=== PATIENT | female | born 1990 | race Caucasian/White ===

== ENCOUNTER → 2017-09-03 13:22 | Outpatient (CLI) | payer OTHER, SELFPAY ==
--- NOTE | 2017-09-03 13:31 | RAD_ITS ---
STUDY: HYSTEROSALPINGOGRAM. REASON FOR EXAM: Female, 27 years old. Infertility. FLUOROSCOPY TIME (if supplied): (0:15) minutes/seconds TECHNIQUE: A hysterosalpingogram was performed by the spooler operator automatic. Imaging was provided. COMPARISON: None. FINDINGS: The uterus is unremarkable. Both fallopian tubes are patent and there is free flow. RAD/Salpingogram IMPRESSION: Normal hysterosalpingogram. Electronically Signed: Jerad Garcia MD at 15:43 EDT Tel [phone], Service support ,
== END ==
PROVIDERS: Family Provider Family Medicine; PCP Family Medicine; Visit Provider Obstetrics & Gynecology
DX: Q52.4 Other congenital malformations of vagina (principal); Q51.818 Other congenital malformations of uterus
CPT/HCPCS: 58340; 74740

== ENCOUNTER → 2017-10-08 17:33 | Outpatient (CLI) | payer OTHER, SELFPAY ==
[2017-10-08 18:29] LABS: Follicle Stimulating Hormone 3.5 mIU/mL; Prolactin 31.9 ng/mL
[2017-10-09 08:44] LABS: Progesterone Level 0.24 ng/mL (See Comment)
[2017-10-12 15:30] LABS: DHEA Sulfate 92.7 ug/dL (84.8-378.0)
[2017-10-16 12:08] LABS: 17-Hydroxyprogesterone 35 ng/dL (.)
== END ==
PROVIDERS: Family Provider Family Medicine; PCP Family Medicine; Visit Provider Obstetrics & Gynecology
DX: N91.1 Secondary amenorrhea (principal)
CPT/HCPCS: 36415; 82627; 83001; 83498; 84144; 84146; 84402; 82626

== ENCOUNTER → 2017-10-13 07:49 | Outpatient (CLI) | payer OTHER, SELFPAY ==
[2017-10-13 08:53] LABS: Prolactin 5.7 ng/mL
== END ==
PROVIDERS: Family Provider Family Medicine; PCP Family Medicine; Visit Provider Obstetrics & Gynecology
DX: E22.9 Hyperfunction of pituitary gland, unspecified (principal)
CPT/HCPCS: 36415; 84146

== ENCOUNTER → 2017-10-26 07:46 | Outpatient (CLI) | payer OTHER, SELFPAY ==
[2017-10-26 10:06] LABS: Progesterone Level 0.47 ng/mL (See Comment)
== END ==
PROVIDERS: Family Provider Family Medicine; PCP Family Medicine; Visit Provider Obstetrics & Gynecology
DX: N91.1 Secondary amenorrhea (principal)
CPT/HCPCS: 36415; 84144

== ENCOUNTER → 2017-12-21 11:19 | Outpatient (CLI) | payer OTHER, SELFPAY ==
[2017-12-21 12:15] LABS: Absolute Lymphocyte Count 1.79 X10^3/ul (0.83-4.51); Basophil# 0.03 X10^3/uL; Basophil% 0.4 % (0-1); Eosinophil# 0.07 X10^3/uL; Eosinophils% 0.9 % (0-5); Hematocrit 36.8 % (37-47); Hemoglobin 12.5 g/dl (12.0-15.0); Lymphocyte # 1.79 X10^3/ul (4.0); Lymphocyte % 23.3 % (19-41); Mean Corpuscular Hgb 31.7 pg (27.0-32.0); Mean Corpuscular Volume 93.4 fL (81-99); Mean Platelet Vol. 9.9 fl (6.2-12.0); Monocyte# 0.81 X10^3/uL; Monocyte% 10.5 % (0-10); Neutrophil # 4.98 X10^3/uL (2.7-7.7); Neutrophil % 64.8 % (47-70); Platelet Count 279 K/mm3 (150-450); RBC Distribution Width CV 12.8 % (11.6-14.6); RBC Distribution Width SD 42.8 fl (35.1-43.9); Red Blood Count 3.94 M/mm3 (4.2-5.4); White Blood Count 7.7 K/mm3 (4.4-11.0)
[2017-12-21 12:21] LABS: POSITIVE COUNT NO; POSITIVE DIFFERENTIAL NO; POSITIVE MORPHOLOGY NO
[2017-12-21 13:32] LABS: HIV - WCH Non-Reactive (Nonreactive); Rubella IgG 46.3 IU/mL
[2017-12-21 19:28] LABS: Chlamydia Trachomatis by PCR Negative (Negative); Neisserai gonorrhoeae by PCR Negative (Negative); Probe Check PASS; Sample Adequacy Control PASS; Specimen Processing Control PASS
[2017-12-23 11:48] LABS: HEPATITIS B SURFACE AG Negative (Negative)
[2017-12-25 02:29] LABS: Rapid Plasmin Reagin (RPR) NONREACTIVE (NONREACTIVE)
[2017-12-25 09:06] LABS: HPV Reflexed? NOT INDICATED
== END ==
PROVIDERS: Visit Provider Obstetrics & Gynecology
DX: Z34.90 Encounter for supervision of normal pregnancy, unspecified, unspecified trimester (principal); Z12.4 Encounter for screening for malignant neoplasm of cervix
CPT/HCPCS: 85025; 86592; 86703; 86762; 86850; 86900; 87086; 87088; 87340; 87491; 87591; 88175; G0145

== ENCOUNTER → 2018-01-28 09:45 | Outpatient (CLI) | payer OTHER, SELFPAY | PROVIDERS: Family Provider Family Medicine; PCP Family Medicine | DX: Z36.9 Encounter for antenatal screening, unspecified (principal) | CPT/HCPCS: 36415 ==

== ENCOUNTER → 2018-02-19 12:28 | Outpatient (CLI) | payer OTHER, SELFPAY | PROVIDERS: Family Provider Family Medicine; PCP Family Medicine | DX: Z36.9 Encounter for antenatal screening, unspecified (principal) | CPT/HCPCS: 36415 ==

== ENCOUNTER → 2018-03-29 12:17 | Outpatient (CLI) | payer OTHER, SELFPAY ==
[2018-03-15 11:28] VITALS: BMI 23.1
--- NOTE | 2018-03-29 12:19 | US_ITS ---
STUDY: SECOND AND THIRD TRIMESTER OBSTETRICAL ULTRASOUND REASON FOR EXAM: Female, 28 years old. Routine survey. LMP: October 26, 2017. TECHNIQUE: Transabdominal TECHNICAL QUALITY: Adequate. PRIOR ULTRASOUND: None. FINDINGS: There is a single intrauterine fetus. The fetus is in a cephalic presentation. There is demonstrated cardiac activity with a heart rate of 139 bpm. There is a normal amniotic fluid volume. The largest amniotic fluid pocket measures 4.3 cm x 9.2 cm. The amniotic fluid index (WILLY) is within normal limits. The placenta is anterior in location and is not low lying. There are Grade 0 placental changes. The cervix measures 4.3 cm in length. The bilateral adnexal regions are normal. BIOMETRY: BPD: 5.78 cm: 23 weeks, 5 days HC: 20.68 cm: 20 weeks, 6 days AC: 17.29 cm: 22 weeks, 2 days FL: 4.08 cm: 23 weeks, 2 days CI: 83% FL/BPD: 71% FL/HC: FL/AC: 24% HC/AC: 1.2 age by current US: 23 weeks, 1 days. BELLA by current US: July 25, 2018. Estimated weight: 529 grams, +/- 76 grams, 80 %. Age by LMP: 22 weeks, 0 days. BELLA by LMP: August 02, 2018. ANATOMY: Gender: Indeterminant Cranium: Normal lateral ventricles. Normal choroid plexus. Normal cerebellum. Normal cisterna magna. Normal face, nose and lips. Chest: Normal 4-chamber heart. Abdomen/Pelvis: Normal diaphragm. Normal stomach. Normal abdominal wall. Normal cord insertion. Normal 3 vessel cord. Normal kidneys. Normal bladder. Spine: Normal cervical spine. Normal thoracic spine. Normal lumbar spine. Normal sacrum. Extremities: Normal bilateral upper extremities. Normal bilateral lower extremities. US/OB Anatomy Scan IMPRESSION: Single live intrauterine gestation with a mean gestational age of 23 weeks and 1 day. Electronically Signed: Jerad Garcia MD at 11:24 EST Tel [phone], Service support ,
--- OUTSIDE RECORDS SUMMARY | 2018-07-01 02:34 | XMS RPT_ITS ---
:1990 Author Organization OHIP Support Name Relationship Address Phone CERAN Unavailable [address] + [place] [address] IVONE, NOEL Unavailable [address] + [place] [address] CERAN Unavailable [address] + [place] [address] IVONE, NOEL Unavailable [address] + [place] [address] CERAN Unavailable [address] + [place] [address] IVONE, NOEL Unavailable [address] + [place] [address] CERAN Unavailable [address] + [place] [address] IVONE, NOEL Unavailable [address] + [place] [address] CERAN Unavailable [address] + [place] [address] IVONE, NOEL Unavailable [address] + [place] [address] CERAN Unavailable [address] + [place] [address] IVONE, NOEL Unavailable [address] + [place] [address] IVONE, NOEL Unavailable [address] + [place] [address] IVONE, NOEL Unavailable [address] + [place] [address] CERAN Unavailable [address] + [place] [address] IVONE, NOEL Unavailable [address] + [place] [address] CERAN Unavailable [address] + [place] [address] IVONE, NOEL Unavailable [address] + [place] [address] CERAN Unavailable [address] + [place] [address] IVONE, NOEL Unavailable [address] + [place] [address] CERAN Unavailable [address] + [place] [address] IVONE, NOEL Unavailable [address] + [place] [address] CERAN Unavailable [address] + [place] [address] IVONE, NOEL Unavailable [address] + [place] [address] CERAN Unavailable [address] + [place] [address] IVONE, NOEL Unavailable [address] + [place] [address] CERAN Unavailable [address] + [place] [address] IVONE, NOEL Unavailable [address] + [place] [address] CERAN Unavailable [address] + [place] [address] IVONE, NOEL Unavailable [address] + [place] [address] Care Team Providers Name Role Phone RAY CALIXTO Referring Unavailable RAY CALIXTO Attending Unavailable RUY WORTHINGTON Attending Unavailable CATHY LEÓN Referring Unavailable IVONNE CARLSON Primary Care Unavailable RUY WORTHINGTON Attending Unavailable CATHY LEÓN Referring Unavailable IVONNE CARLSON Primary Care Unavailable Cathy León Attending Unavailable Ivonne Carlson Referring Unavailable Ivonne Carlson Primary Care Unavailable Cathy León Attending Unavailable Ranney, Christopher Referring Unavailable Arnold, Tasia [facility]ending [facility]available Arnold, Tasia Referring Unavailable Genevieve Jean Baptiste Attending Unavailable Ranney, Christopher Referring Unavailable Arnold, Tasia Attending Unavailable Arnold, Tasia Referring Unavailable Ranney, [facility] Unavailable Marcanthony, Cathy Attending Unavailable Ranney, Christopher Referring Unavailable Marcanthony, Cathy Attending Unavailable Marcanthony, Cathy Referring Unavailable Marcanthony, Cathy Attending Unavailable Marcanthony, Cathy Referring Unavailable Ran[facility], [facility] Unavailable Marcanthony, Cathy Attending Unavailable Marcanthony, Cathy Referring Unavailable Ranney, [facility] Unavailable Marcanthony, Cathy Attending Unavailable Marcanthony, Cathy Referring Unavailable Ranney, [facility] Unavailable Marcanthony, Cathy Attending Unavailable Ranney, Christopher Referring Unavailable Ranney, [facility] Unavailable Naveen, Ray Attending Unavailable Naveen, Ray Referring Unavailable Ranaustin, [facility] Unavailable Marcanthony, Cathy Attending Unavailable Ranney, Christopher Referring Unavailable Marcanthony, Cathy Attending Unavailable Marcanthony, Cathy Referring Unavailable Ranaustin, [facility] Unavailable PROBLEMS PROBLEMS DATE TYPE CONDITION / CODE ATTENDING STATUS SOURCE 04/14/2018 Unknown Z3A.24 - 24 weeks Marcanthony, Active [place] gestation of [facility] Z3A.24(ICD-10) Repository 04/14/2018 Unknown Z34.02 - Encounter Marcanthony, Active [place] for supervision of [facility] , second Repository trimester / Z34.02(ICD-10) 03/15/2018 Unknown Z34.01 - Encounter Marcanthony, Active [place] for supervision of [facility] , first Repository trimester / Z34.01(ICD-10) 03/15/2018 Unknown Z3A.16 - 16 weeks Marcanthony, Active [place] gestation of [facility] Z3A.16(ICD-10) Repository 03/23/2018 Unknown Z36.9 - Encounter Clayton, Active [place] for [facility] screening, Hospital unspecified / Repository Z36.9(ICD-10) 03/08/2018 Unknown Z36.89 - Encounter Clayton, Active [place] for other specified [facility] screening Hospital / Z36.89(ICD-10) Repository 12/21/2017 Unknown Z34.90 - Encounter Ryanlorene Active [place] for supervision of [facility] normal , Hospital unspecified, Repository unspecified trimester / Z34.90(ICD-10) 12/21/2017 Unknown Z3A.01 - Less than Rubina, Active [place] [address] [facility] of / Hospital Z3A.01(ICD-10) Repository 10/16/2017 Unknown N91.1 - Secondary Ryanlorene, Active [place] amenorrhea / 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 / Repository Q51.818(ICD-10) 05/25/2017 Active Irregular NA Active [facility] menstruation, [facility] [place] unspecified / Repository N92.6(ICD-10) PROCEDURES PROCEDURES No Procedure Records FoundRESULTS RESULTS MUSIC PUBLICIST OFFICE VISIT Observed: 04/14/2018 Status: F Source: [place] REPORT 8:38 AM [facility] REPOSITORY [facility] [address] [place] [address] [address] [place] [address] OFFICE VISIT Date of Service: 04/14/18 MR#: [id number] Acct: [id number] Name: IVONECHATO R Rep #: [id number] : 1990 Provider: Cathy León MD Age/Sex: 28/F [place] [facility] [place] Status: Signed Intake Vital Signs04/14/18 Height 5 ft 7 in 04/14/18 Weight: 156 lb 6 oz 04/14/18 Body Mass Index (BMI) 24.5 04/14/18 Blood Pressure 120/62 04/14/18 Body Mass Index (BMI) 23.1 Intake Visit Reasons: est ob 24w Chief Complaint: est ob Child Psychologist Required: No Is patient in pain?: No Allergies No Known Allergies Allergy (Verified 04/14/18 08:22) Medications vitamin,calcium,xtadveuq-emyf-bovun acid tablet 1 tab PO DAILY 12/21/17 [History Confirmed 04/14/18] Last Menstral Period: 10/26/17 Zika: Zika virus screening: Negative : No PFSH PFSH Medical History Anxiety (Acute) History of hysterosalpingogram (Acute) Family History Grandfather Heart disease Unknown Breast cancer Cancer prostate Social History Smoking Status: Never smoker alcohol intake: current alcohol intake frequency: a few times a month details: pre-pegnancy substance use type: does not use caffeine: Yes what type of physical activity do you participate in: walking frequency: 3-4 times per week seatbelt use: always do you feel safe at home: Yes additional social history: LAUREN Shelley Pregancy History 1 Elective abortions Hx Para Spontaneous abortions HPI est ob 24w: Details: CHATO ROBERTSON is a 28 year old who presents for routine OB visit. OB Visit BELLA Calculator Estimated Delivery Date 08/02/18 Based on LMP (certain) 10/26/17 Current WG 24w 2d Number 1 Expected Delivery Route/Plan Specific Issue/Plans flu vaccine: declines tdap vaccine: [] rhogam:NA LARC form signed: [] labor support person: Noel pain management: epidural cut cord/dad catch: maybe : yes PP control planned: [] special requests: [] Initial Weight: 140 lb Date Weight BP Urine PFHR FuHt Pres MCTX DilatioFetal SVisit NProvideComment rot ov n t ote r s EGA Ef Gluco faced se 01/19/1141 lb 120/62 [id number] no vb c 8 2 oz (+ e ramping 121 lb 2 still w 1d oz) Negati having ve nausea and nuha sis Visit Notes Visit Date: 04/14/18 no vb cramping doing well Cathy León MD on 04/14/18 Visit Date: 03/15/18 no vb lof cramping. anatomy us ordered Cathy León MD on 03/15/18 Visit Date: 02/16/18 Doing well. Nausea improving. Takes Unisom at bedtime. Genevieve Jean Baptiste NP-C on 02/16/18 Visit Date: 01/19/18 no vb cramping still having nausea and emesis Cathy León MD on 01/19/18 ACOG First Trimester First Trimester: Desire for , Alcohol, Tobacco Cessation, Illicit/Recreational Drug/Substance Use, Intimate Partner Violence, Barriers to care, Unstable Housing, Communication Barriers, Environmental/Work Hazards, Anticipated Course of Care, Toxoplasmosis Precations, Use of Any medications, Sexual activity, Exercise, Dental Care, Sauna/Hot tub use, Seat Belt use, Childbirth classes/Hospital facilities, , Travel, Indications for US and Screening for Aneuploidy Diagnostics Diagnostics Labs Blood Type O POSITIVE 12/21/17 Antibody Screen NEGATIVE 12/21/17 Hct 36.8 % (37-47) L 12/21/17 Hgb 12.5 g/dl (12.0-15.0) 12/21/17 Obstetrics Ultrasound 03/29/18 Rubella IgG Antibody 46.3 IU/mL 12/21/17 RPR NONREACTIVE (NONREACTIVE) 12/21/17 Hep Bs Antigen Negative (Negative) 12/21/17 Chlam trachomat DNA PCR Negative (Negative) 12/21/17 N.gonorrhoeae DNA (PCR) Negative (Negative) 12/21/17 Miscellaneous Test 02/19/18 Details: HIV: Urine Culture: Sequential Screen: NIPT Screen: Results [id number] Office Urine Glucose Negative Last Edit by Jeanie Ramirez on 04/14/18 08:25 Office Urine Protein Negative Last Edit by Jeanie Ramirez on 04/14/18 08:25 Assessment AND Plan Problems 1. 24 weeks gestation of Z3A.24 sequential screen negative. carrier screening declined. anatomy us normal 2. Encounter for supervision of normal first in second trimester Z34.02 PRR BELLA 08/02/18 gender surprise Noel Plan ACOG trimester education reviewed and updated. see problem list details for updated plan management information and see below for orders placed at this visit. GA appropriate handout given. Orders Orders: Coding Level of Care Code OB Routine Diagnoses 24 weeks gestation of Z3A.24 Weeks of gestation: 24 weeks Encounter for supervision of normal first in second trimester Z34.02 Normal : normal first Trimester: second trimester 04/14/18 0838 <Electronically signed by Cathy León MD> Date Cathy León MD Cosign Signature: Date (if applicable) CC: OB ANATOMY SCAN Observed: 03/29/2018 Status: F Source: [place] 12:19 PM [facility] REPOSITORY [facility] Imaging Services [address] [place] [address] OB Anatomy Scan MR#: [id number] Acct: [id number] Name: CHATO ROBERTSON Rep #: [id number] : 1990 F 28 From: Jerad Garcia MD PCP: Ivonne Carlson MD Status: REG CLI Study: OB Anatomy Scan Date of Exam: 03/29/18 Exam# [id number] Ordering Dr: Cathy León MD STUDY: SECOND AND THIRD TRIMESTER OBSTETRICAL ULTRASOUND REASON FOR EXAM: Female, 28 years old. Routine survey. LMP: October 26, 2017. TECHNIQUE: Transabdominal TECHNICAL QUALITY: Adequate. PRIOR ULTRASOUND: None. FINDINGS: There is a single intrauterine fetus. The fetus is in a cephalic presentation. There is demonstrated cardiac activity with a heart rate of 139 bpm. There is a normal amniotic fluid volume. The largest amniotic fluid pocket measures 4.3 cm x 9.2 cm. The amniotic fluid index (WILLY) is within normal limits. The placenta is anterior in location and is not low lying. There are Grade 0 placental changes. The cervix measures 4.3 cm in length. The bilateral adnexal regions are normal. BIOMETRY: BPD: 5.78 cm: 23 weeks, 5 days HC: 20.68 cm: 20 weeks, 6 days AC: 17.29 cm: 22 weeks, 2 days FL: 4.08 cm: 23 weeks, 2 days CI: 83% FL/BPD: 71% FL/HC: FL/AC: 24% HC/AC: 1.2 age by current US: 23 weeks, 1 days. BELLA by current US: July 25, 2018. Estimated weight: 529 grams, +/- 76 grams, 80 %. Age by LMP: 22 weeks, 0 days. BELLA by LMP: August 02, 2018. ANATOMY: Gender: Indeterminant Cranium: Normal lateral ventricles. Normal choroid plexus. Normal cerebellum. Normal cisterna magna. Normal face, nose and lips. Chest: Normal 4-chamber heart. Abdomen/Pelvis: Normal diaphragm. Normal stomach. Normal abdominal wall. Normal cord insertion. Normal 3 vessel cord. Normal kidneys. Normal bladder. Spine: Normal cervical spine. Normal thoracic spine. Normal lumbar spine. Normal sacrum. Extremities: Normal bilateral upper extremities. Normal bilateral lower extremities. US/OB Anatomy Scan IMPRESSION: Single live intrauterine gestation with a mean gestational age of 23 weeks and 1 day. Electronically Signed: Jerad Garcia MD at 11:24 EST Tel [phone], Service support , CC: Ivonne Carlson MD; Cathy León MD Director Funeral: Signed MUSIC PUBLICIST OFFICE VISIT Observed: 03/15/2018 Status: F Source: [place] REPORT 11:42 AM [facility] [address] [place] [address] OFFICE VISIT Date of Service: 03/15/18 MR#: [id number] Acct: [id number] Name: CHATO ROBERTSON Dinh Rep #: [id number] : 1990 Provider: Cathy León MD Age/Sex: 28/F [place] [facility] [place]: Signed Intake Vital Signs03/15/18 Height 5 ft 7 in 03/15/18 Weight: 148 lb 2 oz 03/15/18 Body Mass Index (BMI) 23.1 12/03/18 Blood Pressure 100/62 Intake Visit Reasons: 20 weeks Child Psychologist Required: No Is patient in pain?: No Allergies No Known Allergies Allergy (Verified 03/15/18 11:29) Medications vitamin,calcium,drpsdxrb-zydm-hlqru acid tablet 1 tab PO DAILY 12/21/17 [History Confirmed 03/15/18] Last Menstral Period: 10/26/17 Zika: Zika virus screening: Negative : No PFSH PFSH Medical History Anxiety (Acute) History of hysterosalpingogram (Acute) Family History Grandfather Heart disease Unknown Breast cancer Cancer prostate Social History Smoking Status: Never smoker alcohol intake: current alcohol intake frequency: a few times a month details: pre-pegnancy substance use type: does not use caffeine: Yes what type of physical activity do you participate in: walking frequency: 3-4 times per week seatbelt use: always do you feel safe at home: Yes additional social history: LAUREN Shelley Pregancy History 1 Elective abortions Hx Para Spontaneous abortions HPI 20 weeks: Details: CHATO ROBERTSON is a 28 year old who presents for routine OB visit. OB Visit BELLA Calculator Estimated Delivery Date 08/02/18 Based on LMP (certain) 10/26/17 Current WG 20w 0d Number 1 Expected Delivery Route/Plan Specific Issue/Plans flu vaccine: declines tdap vaccine: [] rhogam:NA LARC form signed: [] labor support person: Noel pain management: epidural cut cord/dad catch: maybe : yes PP control planned: [] special requests: [] Initial Weight: 140 lb Date Weight BP Urine PrFHR FuHt Pres MoCTX DilationFetal StVisit NoProviderComments E ot v te [place] G Effac lucose ed Visit Notes Visit Date: 03/15/18 no vb lof cramping. anatomy us ordered Cahty León MD on 03/15/18 Visit Date: 02/16/18 Doing well. Nausea improving. Takes Unisom at bedtime. Genevieve Jean Baptiste NP-Marcus on 02/16/18 Visit Date: 01/19/18 no vb cramping still having nausea and emesis Cathy León MD on 01/19/18 ACOG First Trimester First Trimester: Desire for , Alcohol, Tobacco Cessation, Illicit/Recreational Drug/Substance Use, Intimate Partner Violence, Barriers to care, Unstable Housing, Communication Barriers, Environmental/Work Hazards, Anticipated Course of Care, Toxoplasmosis Precations, Use of Any medications, Sexual activity, Exercise, Dental Care, Sauna/Hot tub use, Seat Belt use, Childbirth classes/Hospital facilities, , Travel, Indications for US and Screening for Aneuploidy Diagnostics Diagnostics Labs Blood Type O POSITIVE 12/21/17 Antibody Screen NEGATIVE 12/21/17 Hct 36.8 % (37-47) L 12/21/17 Hgb 12.5 g/dl (12.0-15.0) 12/21/17 Pap Smear Negative 05/30/14 Rubella IgG Antibody 46.3 IU/mL 12/21/17 RPR NONREACTIVE (NONREACTIVE) 12/21/17 Hep Bs Antigen Negative (Negative) 12/21/17 Chlam trachomat DNA PCR Negative (Negative) 12/21/17 N.gonorrhoeae DNA (PCR) Negative (Negative) 12/21/17 Miscellaneous Test Pending 02/19/18 Details: HIV: Urine Culture: Sequential Screen: NIPT Screen: Results [id number] Office Urine Glucose Negative Last Edit by Kathleen Mccall on 03/15/18 11:28 Office Urine Protein Negative Last Edit by Kathleen Mccall on 03/15/18 11:28 Assessment AND Plan Problems 1. 16 weeks gestation of Z3A.16 sequential screen negative. carrier screening declined. anatomy us ordered. 2. Encounter for supervision of normal first in first trimester Z34.01 PRR BELLA 08/02/18 Noel Plan ACOG trimester education reviewed and updated. see problem list details for updated plan management information and see below for orders placed at this visit. [place] appropriate handout given. Orders Orders: Coding Level of Care Code OB Routine Diagnoses 16 weeks gestation of Z3A.16 Weeks of gestation: 16 weeks Encounter for supervision of normal first in first trimester Z34.01 Normal : normal first Trimester: first trimester 03/15/18 1142 <Electronically signed by Cathy León MD> Date Cathy Salamanca Signature: Date (if applicable) CC: MISCELLANEOUS LAB Collected: 02/19/2018 Status: F Source: [place] PROCEDURE 12:32 PM [facility] REPOSITORY Order Comment: Test(s) Ordered: SEQUENTIAL SCREENING SEND OUT GREEN BOX TYPE CODE TESTS RESULT OUT OF RANGE REFERENCE UNITS LAB L801.1541 Normal [facility] Result Comment: Sent directly to testing facility per ordering physician. @ 03/23/18 1534 MYOUNG Performed By: #### L801.1541 #### [facility] [address] [place] [place], [address] MUSIC PUBLICIST OFFICE VISIT Observed: 02/16/2018 Status: F Source: [place] REPORT 1:36 PM [facility] REPOSITORY [facility] [address] [place] [address] OFFICE VISIT Date of Service: 02/16/18 MR#: [id number] Acct: [id number] Name: CHATO ROBERTSON Dinh Rep #: [id number] : 1990 Provider: ILIANA Jean Baptiste Age/Sex: 28/F [place] [facility] [place]: Signed Intake Vital Signs02/16/18 Height 5 ft 7 in 02/16/18 Weight: 144 lb 02/16/18 Body Mass Index (BMI) 22.5 02/16/18 Blood Pressure 118/72 Intake Visit Reasons: 16 weeks Child Psychologist Required: No Accompanied by: Is patient in pain?: No Allergies No Known Allergies Allergy (Verified 02/16/18 11:36) Medications vitamin,calcium,gkqlomme-dkfw-xexdb acid tablet 1 tab PO DAILY 12/21/17 [History Confirmed 02/16/18] Last Menstral Period: 10/26/17 Zika: Zika virus screening: Negative : No PFSH PFSH Medical History Anxiety (Acute) History of hysterosalpingogram (Acute) Family History Grandfather Heart disease Unknown Breast cancer Cancer prostate Social History Smoking Status: Never smoker alcohol intake: current alcohol intake frequency: a few times a month details: pre-pegnancy substance use type: does not use caffeine: Yes what type of physical activity do you participate in: walking frequency: 3-4 times per week seatbelt use: always do you feel safe at home: Yes additional social history: LAUREN De La Rosa- Karsten Pregancy History 1 Elective abortions Hx Para Spontaneous abortions HPI 16 weeks: Details: CHATO ROBERTSON is a 28 year old who presents for routine OB visit. OB Visit BELLA Calculator Estimated Delivery Date 08/02/18 Based on LMP (certain) 10/26/17 Current WG 16w 1d Number 1 Expected Delivery Route/Plan Specific Issue/Plans flu vaccine: declines tdap vaccine: [] rhogam:NA LARC form signed: [] labor support person: Noel pain management: epidural cut cord/dad catch: maybe : yes PP control planned: [] special requests: [] Initial Weight: Not Recorded Date Weight BP Urine PrFHR FuHt Pres MoCTX DilationFetal StVisit NoProviderComments E ot v te [place] G Effac lucose ed Visit Notes Visit Date: 02/16/18 Doing well. Nausea improving. Takes Unisom at bedtime. Genevieve Jean Baptiste NP-Marcus on 02/16/18 Visit Date: 01/19/18 no vb cramping still having nausea and emesis Cathy León MD on 01/19/18 ACOG First Trimester First Trimester: Desire for , Alcohol, Tobacco Cessation, Illicit/Recreational Drug/Substance Use, Intimate Partner Violence, Barriers to care, Unstable Housing, Communication Barriers, Environmental/Work Hazards, Anticipated Course of Care, Toxoplasmosis Precations, Use of Any medications, Sexual activity, Exercise, Dental Care, Sauna/Hot tub use, Seat Belt use, Childbirth classes/Hospital facilities, , Travel, Indications for US and Screening for Aneuploidy Diagnostics Diagnostics Labs Blood Type O POSITIVE 12/21/17 Antibody Screen NEGATIVE 12/21/17 Hct 36.8 % (37-47) L 12/21/17 Hgb 12.5 g/dl (12.0-15.0) 12/21/17 Pap Smear Negative 05/30/14 Rubella IgG Antibody 46.3 IU/mL 12/21/17 RPR NONREACTIVE (NONREACTIVE) 12/21/17 Hep Bs Antigen Negative (Negative) 12/21/17 Chlam trachomat DNA PCR Negative (Negative) 12/21/17 N.gonorrhoeae DNA (PCR) Negative (Negative) 12/21/17 Miscellaneous Test Pending 01/28/18 Details: HIV: Urine Culture: Sequential Screen: NIPT Screen: Results [id number] Office Urine Glucose Negative Last Edit by Kathleen Mccall on 02/16/18 11:34 Office Urine Protein Negative Last Edit by Kathleen Mccall on 02/16/18 11:34 Assessment AND Plan Problems 1. Encounter for supervision of normal first in first trimester Z34.01 PRR BELLA 08/02/18 Noel 2. 16 weeks gestation of Z3A.16 sequential screen ordered. NT normal, second part of sequential screen at 15-18 weeks. carrier screening declined. anatomy us ordered. Plan Orders placed: aware second seq screen due end of this week and also has anatomy US scheduled declines flu vaccine Reviewed of labor precautions, movement/kick counts ACOG trimester education reviewed and updated See problem list details for updated plan of care Gestational age appropriate handout given RTO: 4 weeks Orders Orders: Coding Level of Care Code OB Routine Diagnoses Encounter for supervision of normal first in first trimester Z34.01 Normal : normal first Trimester: first trimester 16 weeks gestation of Z3A.16 Weeks of gestation: 16 weeks 02/16/18 1336 <Electronically signed by Genevieve SUBRAMANIAN> Date Genevieve SUBRAMANIAN Cosigner Signature: Date (if applicable) CC: MISCELLANEOUS LAB Collected: 01/28/2018 Status: F Source: [place] PROCEDURE 9:59 AM [facility] REPOSITORY Order Comment: Test(s) Ordered: SEQUENTIAL SCREEN TYPE CODE TESTS RESULT OUT OF RANGE REFERENCE UNITS LAB L801.1541 Normal [facility] Result Comment: Sent directly to testing facility per ordering physician. @ 03/02/18 1546 MYOUNG Performed By: #### [id number] #### [place] [facility] [address] [place], [address] MUSIC PUBLICIST OFFICE VISIT Observed: 01/19/2018 Status: F Source: [place] REPORT 5:04 PM [facility] REPOSITORY [facility] [address] [place] [address] OFFICE VISIT Date of Service: 01/19/18 MR#: [id number] Acct: [id number] Name: CHATO ROBERTSON Rep #: [id number] : 1990 Provider: Cathy León MD Age/Sex: 27/F [place] [facility] [place]: Signed Intake Vital Signs01/19/18 Height 5 ft 7 in 01/19/18 Weight: 141 lb 2 oz 01/19/18 Body Mass Index (BMI) 22.1 01/19/18 Blood Pressure 120/62 Intake Visit Reasons: 12 weeks Chief Complaint: est ob Child Psychologist Required: No Is patient in pain?: No Allergies No Known Allergies Allergy (Verified 01/19/18 16:37) Medications vitamin,calcium,lkexfznu-fgsg-lufyw acid tablet 1 tab PO DAILY 12/21/17 [History Confirmed 01/19/18] Last Menstral Period: 10/26/17 Zika: Zika virus screening: Negative : No PFSH PFSH Medical History Anxiety (Acute) History of hysterosalpingogram (Acute) Family History Grandfather Heart disease Unknown Breast cancer Cancer prostate Social History Smoking Status: Never smoker alcohol intake: current alcohol intake frequency: a few times a month details: pre-pegnancy substance use type: does not use caffeine: Yes what type of physical activity do you participate in: walking frequency: 3-4 times per week seatbelt use: always do you feel safe at home: Yes additional social history: CAB Noel- [employer] Pregancy History 1 Elective abortions Hx Para Spontaneous abortions HPI 12 weeks: Details: CHATO ROBERTSON is a 27 year old who presents for routine OB visit. Patient declines flu vaccine OB Visit BELLA Calculator Estimated Delivery Date 08/02/18 Based on LMP (certain) 10/26/17 Current WG 12w 1d Number 1 Expected Delivery Route/Plan Initial Weight: Not Recorded Date Weight BP Urine PrFHR FuHt Pres MoCTX DilationFetal StVisit NoProviderComments E ot v te GA G Effac lucose ed Visit Notes Visit Date: 01/19/18 no vb cramping still having nausea and emesis Cathy León MD on 01/19/18 ACOG First Trimester First Trimester: Desire for , Alcohol, Tobacco Cessation, Illicit/Recreational Drug/Substance Use, Intimate Partner Violence, Barriers to care, Unstable Housing, Communication Barriers, Environmental/Work Hazards, Anticipated Course of Care, Toxoplasmosis Precations, Use of Any medications, Sexual activity, Exercise, Dental Care, Sauna/Hot tub use, Seat Belt use, Childbirth classes/Hospital facilities, , Travel, Indications for US and Screening for Aneuploidy Diagnostics Diagnostics Labs Blood Type O POSITIVE 12/21/17 Antibody Screen NEGATIVE 12/21/17 Hct 36.8 % (37-47) L 12/21/17 Hgb 12.5 g/dl (12.0-15.0) 12/21/17 Pap Smear Negative 05/30/14 Rubella IgG Antibody 46.3 IU/mL 12/21/17 RPR NONREACTIVE (NONREACTIVE) 12/21/17 Hep Bs Antigen Negative (Negative) 12/21/17 Chlam trachomat DNA PCR Negative (Negative) 12/21/17 N.gonorrhoeae DNA (PCR) Negative (Negative) 12/21/17 Details: HIV: Urine Culture: Sequential Screen: NIPT Screen: Results [id number] Office Urine Glucose Negative Last Edit by Jeanie Ramirez on 01/19/18 16:41 Office Urine Protein Negative Last Edit by Jeanie Ramirez on 01/19/18 16:41 Assessment AND Plan Problems 1. Encounter for supervision of normal first in first trimester Z34.01 BELLA 08/02/18 Noel 2. 12 weeks gestation of Z3A.12 sequential screen ordered. carrier screening declined. anatomy us ordered. Plan ACOG trimester education reviewed and updated. see problem list details for updated plan management information and see below for orders placed at this visit. GA appropriate handout given. Orders Orders: Coding Level of Care Code OB Routine Diagnoses Encounter for supervision of normal first in first trimester Z34.01 Normal : normal first Trimester: first trimester 12 weeks gestation of Z3A.12 Weeks of gestation: 12 weeks 01/19/18 1704 <Electronically signed by Cathy León MD> Date Cathy León MD Cosigner Signature: Date (if applicable) CC: CBC W/DIFF, AUTOMATED Collected: 12/21/2017 Status: F Source: [place] 11:21 AM [facility] REPOSITORY TYPE CODE TESTS RESULT OUT OF RANGE REFERENCE UNITS LAB L100.1000 4.4-11.0 K/mm3 Normal WBC 7.7 LAB L100.1200 4.2-5.4 M/mm3 Low RBC 3.94 LAB L100.1300 12.0-15.0 g/dl Normal HGB 12.5 LAB L100.1400 37-47 % Low HCT 36.8 LAB L100.1500 81-99 fL Normal MCV 93.4 LAB L100.1600 27.0-32.0 pg Normal MCH 31.7 LAB L100.1700 32-36 g/gl Normal MCHC 34.0 LAB L100.1810 11.6-14.6 % Normal RDW CV 12.8 LAB L100.1820 35.1-43.9 fl Normal RDW SD 42.8 LAB L100.1900 150-450 K/mm3 Normal PLT 279 LAB L100.2000 6.2-12.0 fl Normal MPV 9.9 LAB L100.2100 47-70 % Normal NEUT% 64.8 LAB L100.2200 19-41 % Normal LY% 23.3 LAB L100.2300 0-10 % High MONO% 10.5 LAB L100.2400 0-5 % Normal EO% 0.9 LAB L100.2500 0-1 % Normal BASO% 0.4 LAB L100.2550 0.0-0.9 % Normal IM GRAN % 0.100 Result Comment: IG% - Immature Granulocytes (promyelocytes, myelocytes and metamyelocytes) > 1% indicates that a LEFT SHIFT is Present. LAB L100.2620 2.0-7.7 X10 3/uL Normal Absolute Neut 5.0 LAB L100.2720 0.83-4.51 X10 3/ul Normal Absolute Lymph 1.79 Performed By: #### L100.0100, B101.7450 #### [facility] [address], [place], [id number] TYPE AND SCREEN Collected: 12/21/2017 Status: F Source: [place] 11:21 AM [facility] REPOSITORY Order Comment: Reason for Type AND Screen/Red Cells: TYPE CODE TESTS RESULT OUT OF RANGE REFERENCE UNITS LAB B10.0800 O Normal BLOOD TYPE GEL POSITIVE LAB B100.4000 Normal Antibody NEGATIVE Screen Performed By: #### L100.0100, B101.7450 #### [facility] [address], [place], [id number] RUBELLA IGG Collected: 12/21/2017 Status: F Source: [place] 11:21 [facility] [place] REPOSITORY TYPE CODE TESTS RESULT OUT OF RANGE REFERENCE UNITS LAB L509.4000 IU/mL Normal Rubella IgG 46.3 Result Comment: Antibody results Interpretation of Immune Status < 5 IU/ml Presumed Non-immune 5 - < 10 IU/ml Equivocal > or = 10 IU/ml Presumed Immune Performed By: #### L509.4000, L3890.6005 #### [facility] [address] [facility]. [place], [place], [id number] #### L3100.0390 #### [facility] (refer to report for specific site) refer to report for address and phone number [facility] Collected: 12/21/2017 Status: F Source: [place] 11:21 AM [facility] REPOSITORY TYPE CODE TESTS RESULT OUT OF RANGE REFERENCE UNITS LAB L3890.6005 Nonreactive Normal HIV - WC Non-Reactive Performed By: #### L509.4000, L3890.6005 #### [facility] [address] [place], [place], [id number] #### L3100.0390 #### [facility] (refer to report for specific site) refer to report for address and phone number HEPATITIS B SURFACE Collected: 12/21/2017 Status: F Source: [place] AG 11:21 AM [facility] REPOSITORY TYPE CODE TESTS RESULT OUT OF RANGE REFERENCE UNITS LAB L3100.0400 Negative Normal HB Negative SURF AG Result Comment: Performed at: - [facility] [id number] Residential Caregiver: Kingsley Grace PhD, Phone: [phone] Performed By: #### L509.4000, L3890.6005 #### [facility] [address] [place], [place], [id number] #### L3100.0390 #### [facility] (refer to report for specific site) refer to report for address and phone number RAPID PLASMIN REAGIN Collected: 12/21/2017 Status: F Source: [place]ISE (RPR) 11:21 AM [facility] REPOSITORY TYPE CODE TESTS RESULT OUT OF REFERENCE UNITS RANGE LAB L700.5000 NONREACTIVE NONREACTIVE Normal RPR Performed By: #### L700.5000 #### [facility] [address] [place], [place], [address] MUSIC PUBLICIST OFFICE VISIT Observed: 12/21/2017 Status: F Source: [place] REPORT 10:59 AM [facility] REPOSITORY [facility] [address] [place] [address] OFFICE VISIT Date of Service: 12/21/17 MR#: [id number] Acct: [id number] Name: CHATO ROEBRTSON Rep #: [id number] : 1990 Provider: Cathy León MD Age/Sex: 27/F Location[place] [facility] [place] Status: Signed Intake Vital Signs12/21/17 Height 5 ft 7 in 12/21/17 Weight: 138 lb 8 oz 12/21/17 Body Mass Index (BMI) 21.7 12/21/17 Blood Pressure 102/64 Intake Visit Reasons: lmp 10/26/17 Chief Complaint: new ob Child Psychologist Required: No Is patient in pain?: No Allergies No Known Allergies Allergy (Verified 12/21/17 10:18) Medications vitamin,calcium,vpbmzfun-gwpz-zbhjk acid tablet 1 tab PO DAILY 12/21/17 [History Confirmed 12/21/17] Last Menstral Period: 10/26/17 Zika: Zika virus screening: Negative : No PFSH PFSH Medical History Anxiety (Acute) History of hysterosalpingogram (Acute) Family History Grandfather Heart disease Unknown Breast cancer Cancer prostate Social History Smoking Status: Never smoker alcohol intake: current alcohol intake frequency: a few times a month details: pre-pegnancy substance use type: does not use caffeine: Yes what type of physical activity do you participate in: walking frequency: 3-4 times per week seatbelt use: always do you feel safe at home: Yes additional social history: LAUREN De La Rosa- Karsten Pregancy History 1 Elective abortions Hx Para Spontaneous abortions HPI lmp 10/26/17: Details: CHATO ROBERTSON is a 27 year old who presents for New OB visit. OB Visit BELLA Calculator Estimated Delivery Date 08/02/18 Based on LMP (certain) 10/26/17 Current WG 8w 0d Number 1 Comments: crl 1.35 mm fht 150 consistent with LMP Expected Delivery Route/Plan Menstrual History Last Menstral Period: 10/26/17 Reported LMP: definite Normal amount/duration: Yes On hormonal BC at conception: No hCG+: 11/26/17 Antepartum Record Genetic Screening: Congenital Heart Defect: Other, Neural Tube Defect: Other, Hemoglobinopathy Or Carrier: Other, Cystic Fibrosis: Other, Chromosome Abnormality: Other, Jair-Sachs: Other, Hemophilia: Other, Intellectual Disability/Autism: Other, Recurrent Loss/Stillbirth: Other, Other Structural Defect: Partner (polydactyly toe, maternal gastroschesis), Other Genetic Disease: Other, Maternal Metabolic Disorder: Other Infection History: Live with someone with TB or Exposed to TB: No, Patient or Partner has history of Genital Herpes: No, Rash or Viral illness since last mentrual period: No, Prior GBS-Infected child: No, History of STD: No, HIV Infection: No, History of Hepatitis: No, Recent travel outside of [place]: No, Concern for Hep exposure: No, Varicella immune: Yes Medical History Medical History: Positive: Depression/ depression (medicine in past no meds at present), Uterine anomaly/emma (vaginal septum), Infertility (irregular menses), Negative: Diabetes, Hypertension, Heart disease, Auto-immune disorder, Kidney disease/UTI, Neurologic/epilepsy, Psychiatric, Hepatitis/liver disease, Varicosities/phlebitis, Thyroid dysfunction, Trauma/domestic violence, History of blood transfusions, D (Rh) Sensitized, Pulmonary (e.g.,TB,Asthma), Seasonal allergies, Drug/latex allergies/reactions, Breast, [employer] surgery, Operations/hospitalizations, Anesthetic complications, History of abnormal pap, Anti-retroviral treatment, Relevant family history, Other ACOG First Trimester First Trimester: , Desire for , Alcohol, Tobacco Cessation, Illicit/Recreational Drug/Substance Use, Intimate Partner Violence, Barriers to care, Unstable Housing, Communication Barriers, Environmental/Work Hazards, Anticipated Course of Care, Nurtrition and weight gain, Toxoplasmosis Precations, Use of Any medications, Sexual activity, Exercise, Dental Care, Sauna/Hot tub use, Seat Belt use, Childbirth classes/Hospital facilities, Travel, Indications for US and Screening for Aneuploidy ROS Const Denies fever(s), Reports system reviewed and no additional complaints, except as docu, Reports fatigue Eyes Reports system reviewed and no additional complaints, except as docu ENT Reports system reviewed and no additional complaints, except as docu Card Denies chest pain, Denies shortness of breath Resp Reports system reviewed and no additional complaints, except as docu, Denies shortness of breath, Denies cough GI Reports nausea, Denies abdominal pain Reports system reviewed and no additional complaints, except as docu Musc Reports system reviewed and no additional complaints, except as docu Skin/Breast Reports system reviewed and no additional complaints, except as docu Neuro Yes system reviewed and no additional complaints, except as docu Psych Reports system reviewed and no additional complaints, except as docu Endo Reports fatigue, Reports system reviewed and no additional complaints, except as docu Exam Const General: healthy appearing, comfortable, no acute distress Orientation: alert HENWV Head: normal to inspection, atraumatic, normocephalic Ears: external ears normal, hearing grossly normal bilaterally Nose: nares normal, external nose normal Mouth: oral mucosae normal Teeth and gingiva: dentition normal Eyes General: appearance normal, both eyes and all related structures Neck Neck: no lymphadenopathy, supple, normal visual inspection Thyroid: thyroid normal Chest Chest palpation AND inspection: normal inspection of the chest Breast inspection: normal inspection of the breasts, normal inspection of the axillae Breast palpation: normal palpation of the breasts, normal palpation of the axillae Resp Effort AND Inspection: normal respiratory effort GI Inspection: normal to inspection Palpation: soft, no hepatosplenomegaly General: bladder normal to palpation External Female Exam: normal external appearance, normal appearance of the urethra Urethra: normal appearance of the urethra Speculum Exam - Vagina: normal appearance of the vagina, normal vaginal discharge Speculum Exam - Cervix: normal appearance of the cervix Bimanual Exam- Vagina AND Uterus: bladder normal to palpation, normal bimanual exam, uterus non-tender, other Bimanual Exam- Adnexa, other: adnexae non-tender Skin General: no rashes or lesions noted Neuro Motor: muscle tone normal throughout, no movement abnormalities noted Extrem General: normal to inspection, full ROM Assessment AND Plan Problems 1. Less than 8 weeks gestation of Z3A.01 sequential screen ordered. carrier screening declined. anatomy us ordered. 2. Encounter for supervision of normal first in first trimester Z34.01 BELLA 08/02/18 Noel Plan Patient oriented to practice and discussed care expectations and screenings. ACOG book offered to patient. Discussed routine and specially indicated labs if needed- patient consents to testing. see problem list details for plan information. Optional screening including carrier screenings, neural tube defect screening, sequential screening, and NIPT screening offered to patient and patient chose: sequential desired Orders Orders: Supplemental Info ACOG book given and patient encouraged to read about nutrition, exercise, weight gain, and food avoidance in . Coding Level of Care Code OB Routine Diagnoses Less than 8 weeks gestation of Z3A.01 Weeks of gestation: less than 8 weeks Encounter for supervision of normal first in first trimester Z34.01 Normal : normal first Trimester: first trimester 12/21/17 1059 <Electronically signed by Cathy León MD> Date Cathy León MD Cosigner Signature: Date (if applicable) CC: PAP I-G W/RFX Collected: 12/21/2017 Status: F Source: MARQUISE HRHPV-APTIMA 10:30 AM [facility] REPOSITORY Order Comment: CYTOLOGY INFORMATION: - CLINICAL INFORMATION: - DATE LMP/MENOPAUSE: - COLLECTION VIAL: Thin Prep Vial - MANAGER UI SOURCE: CERVICAL - COLLECTION TECHNIQUE: CX BROOM ONLY Specimen Comment: [id number] Specimen Comment: Source.............Cervix Specimen Comment: Other.............. Specimen Comment: No. of containers..01 ThinPrep Vial TYPE CODE TESTS RESULT OUT OF RANGE REFERENCE UNITS LAB L7400.0800 . Normal DIAGN Comment Result Comment: NEGATIVE FOR INTRAEPITHELIAL LESION AND MALIGNANCY. CELLULAR CHANGES ASSOCIATED WITH INFLAMMATION ARE PRESENT. LAB L7400.0900 . Normal ADEQ Comment Result Comment: Satisfactory for evaluation. Endocervical and/or squamous metaplastic cells (endocervical component) are present. LAB L7400.1400 . Normal PERFORM Comment Result Comment: Johana Isaac, It Help Desk Manager (ASCP) LAB L7400.2575 . Normal TEST METHOD Comment Result Comment: This liquid based ThinPrep(R) pap test was screened with the use of an image guided system. LAB L7400.2600 . Normal . COMM LAB L7400.2700 . Normal PAPSMR Comment Result Comment: The Pap smear is a screening test designed to aid in the detection of premalignant and malignant conditions of the uterine cervix. It is not a diagnostic procedure and should not be used as the sole means of detecting cervical cancer. Both false-positive and false-negative reports do occur. LAB L7400.2800 . Normal HPV RFLX Comment Result Comment: The HPV DNA reflex criteria were not met with this specimen result therefore, no HPV testing was performed. Performed at: - [facility] [place] [id number] Residential Caregiver: Analia Valadez MD, Phone: [phone] Performed By: #### L7400.0353 #### [facility] (refer to report for specific site) refer to report for address and phone number CT/NG WCH BY PCR Collected: 12/21/2017 Status: F Source: [place] 12:00 AM [facility] REPOSITORY TYPE CODE TESTS RESULT OUT OF RANGE REFERENCE UNITS LAB L8200.2100 Negative Normal Chlam Negative Trac PCR LAB L8200.2200 Negative Normal NG by Negative PCR Performed By: #### L8200.2000 #### [facility] [address] [place], [address] Observed: 12/21/2017 Status: F Source: [place] CULTURE, URINE 12:00 AM [facility] Urine Culture ORGANISM 1: Mixed Gram Positive Organisms Redby Count 1000-10,000 MIX CULTURE Mixed contaminants. Submit a new specimen if indicated. Performed By: #### M100.0650 #### [facility] [address] [place], [address] PROGESTERONE LEVEL Collected: 10/26/2017 Status: F Source: [place] 7:58 AM [facility] REPOSITORY TYPE CODE TESTS RESULT OUT OF REFERENCE UNITS RANGE LAB L509.4001 See Comment ng/mL Progesterone Normal 0.47 Result Comment: Progesterone Reference Table: UNITS Female: Follicular 0.15 - 1.40 ng/mL Luteal 3.34 - 25.56 ng/mL Mid-luteal 4.44 - 28.03 ng/mL Postmenopausal 0.0 - 0.73 ng/mL : 1st Trimester 11.22 - 90.00 ng/mL 2nd Trimester 25.55 - 89.40 ng/mL 3rd Trimester 48.40 -422.50 ng/mL Performed By: #### L509.4001 #### [facility] [address] [place], [address] PROLACTIN Collected: 10/13/2017 Status: F Source: [place] 7:54 AM [facility] REPOSITORY TYPE CODE TESTS RESULT OUT OF RANGE REFERENCE UNITS LAB L3100.5420 ng/mL Normal PROLACTIN 5.7 Result Comment: NORMAL REFERENCE RANGES FEMALE NON- 2.2 - 30.3 ng/mL 8.1 - 347.6 ng/mL POST-MENOPAUSAL 0.7 - 31.5 ng/mL MALE 2.5 - 17.4 ng/mL NEW TEST METHOD AND REFERENCE RANGES SEPTEMBER 01, 2011 Performed By: #### L3100.5420 #### [facility] [address] [place], [address] MUSIC PUBLICIST OFFICE VISIT Observed: 10/08/2017 Status: F Source: [place] REPORT 11:48 PM [facility] REPOSITORY [facility] [address] [place] [address] OFFICE VISIT Date of Service: 10/05/17 MR#: [id number] Acct: [id number] Name: CHATO ROBERTSON Rep #: [id number] : 1990 Provider: Cathy León MD Age/Sex: 27/F [place] [facility] [place] Status: Signed Intake Vital Signs10/05/17 Height 5 ft 6 in 10/05/17 Weight: 138 lb 10/05/17 Body Mass Index (BMI) 22.2 10/05/17 Blood Pressure 128/72 Intake Visit Reasons: DISCUSS GETTING Chief Complaint: pre-conception counsiling Child Psychologist Required: No Is patient in pain?: No Allergies No Known Allergies Allergy (Unverified 10/05/17 10:09) Medications progesterone 50 mg/mL intramuscular oil 10 mg IM QDAY 10/05/17 [History Confirmed 10/05/17] Is last menstrual period known: Yes Last Menstral Period: 08/29/17 Post menopausal: No Patient : No : No PFSH Medical History History of hysterosalpingogram (Acute) Social History Smoking Status: Never smoker alcohol intake: current alcohol intake frequency: a few times a month HPI DISCUSS GETTING : Details: CHATO ROBERTSON is a 27 year old who presents for 9 month history of trying to get . she has a history of being on control. she has been off control for nine months. she hasn't had many menses without inducing it with provera. she has seen by dr calixto and had an HSG that was normal and patent. She was prescribed clomid to start this month on day 3. she hasn't had hormones checked either Female Reproductive History Last Menstral Period: 08/29/17 Cycle Length: >35 Pregancy History 0 Elective abortions Hx Para Spontaneous abortions ROS Const Constitutional: Denies poor appetite, headache(s), fever(s), increased appetite, weight gain, weight loss or fatigue ENT ENT: Denies dizziness or dry mouth Cardio Card: Denies chest pain Resp Resp: Denies dyspnea or cough GI GI: Reports as per HPI; denies vomiting, nausea, abdominal pain or constipation : Reports as per HPI; denies urinary urgency, vaginal discharge, urinary frequency, vaginal itching, vaginal odor, vaginal dryness, urinary incontinence, urinary hesitancy, pelvic pain, difficulty urinating or painful urination Musc Musc: Denies muscle weakness, joint pain or back pain Skin Skin/Breast: Denies hair loss, change in hair, dry skin, breast pain, breast skin changes or breast lump Neuro Neuro: Denies dizziness Psych Psych: Denies anxiety or depression Endo Endo: Denies cold intolerance, increased thirst, excessive sweating or heat intolerance Jake/Lymph Hematologic/Lymphatic: Denies easy bleeding, Denies easy bruising, Denies enlarged lymph nodes Exam Const General: cooperative, healthy appearing, comfortable, no acute distress, well developed Nutritional Appearance: average body habitus Orientation: alert [facility] Head: normal to inspection, normocephalic Ears: hearing grossly normal bilaterally, external ears normal Nose: external nose normal, nares normal Face and sinus: normal facial exam Neck Neck: normal visual inspection, trachea midline, no lymphadenopathy Thyroid: thyroid normal Chest Chest palpation AND inspection: normal inspection of the chest Resp Effort AND Inspection: normal respiratory effort Auscultation: clear to auscultation bilaterally Cardio Rate: regular rate Rhythm: regular rhythm Heart Sounds: S1 normal, S2 normal GI Inspection: normal to inspection, non-distended Palpation: soft, no hepatosplenomegaly General: bladder normal to palpation External Female Exam: normal external appearance, normal appearance of the urethra Urethra: normal appearance of the urethra, normal palpation, no discharge Speculum Exam - Vagina: normal vaginal discharge, other (transverse vaginal septum) Speculum Exam - Cervix: normal appearance of the cervix, nontender Bimanual Exam- Vagina AND Uterus: bladder normal to palpation, No cervical tenderness, normal bimanual exam, normal vaginal palpation, uterine size normal, uterine shape normal, uterine mobility normal, uterine consistency normal, normal cervical palpation, uterus non-tender Bimanual Exam- Adnexa, other: normal adnexae, adnexae mobile, no adnexal masses, pelvic support normal Pelvic Support: normal Musc Cervical Spine: other Other: gross motor intact no deficits, full bilateral strength Skin General: no rashes or lesions noted Neuro General: alert, awake, no focal motor deficits, moves all extremities Motor: muscle tone normal throughout Extrem General: normal to inspection, no pedal edema Psych Appearance: grossly normal Mental Status: mental status grossly normal Affect: normal affect Speech and Movement: speech and movement normal Assessment AND Plan Problems 1. 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 provera for withdrawl bleed. 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 10/08/17 2348 <Electronically signed by Cathy León MD> Date Cathy León MD Cosigner Signature: Date (if applicable) CC: FOLLICLE STIMULATING Collected: 10/08/2017 Status: F Source: [place] HORMONE 5:37 PM [facility] REPOSITORY TYPE CODE TESTS RESULT OUT OF RANGE REFERENCE UNITS LAB L3100.5125 mIU/mL Normal FSH 3.5 Result Comment: NORMAL REFERENCE RANGES FEMALE FOLLICULAR 2.3 - 12.6 mIU/mL MID-CYCLE PEAK 5.2 - 17.5 mIU/mL LUTEAL 1.7 - 12.9 mIU/mL POST-MENOPAUSAL ON MHT 5.9 - 72.8 mIU/mL NOT ON MHT 12.7 - 132.2 mlU/mL MALE 0.7 - 10.8 mIU/mL NEW TEST METHOD AND REFERENCE RANGES SEPTEMBER 01, 2011 Performed By: #### L3100.5125, L3100.5420 #### [facility] [address] [place], [address] PROLACTIN Collected: 10/08/2017 Status: F Source: [place] 5:37 PM [facility] REPOSITORY TYPE CODE TESTS RESULT OUT OF RANGE REFERENCE UNITS LAB L3100.5420 ng/mL Normal PROLACTIN 31.9 Result Comment: NORMAL REFERENCE RANGES FEMALE NON- 2.2 - 30.3 ng/mL 8.1 - 347.6 ng/mL POST-MENOPAUSAL 0.7 - 31.5 ng/mL MALE 2.5 - 17.4 ng/mL NEW TEST METHOD AND REFERENCE RANGES SEPTEMBER 01, 2011 Performed By: #### L3100.5125, L3100.5420 #### [facility] [address] [place], [place], [address] PROGESTERONE LEVEL Collected: 10/08/2017 Status: F Source: [place] 5:37 PM [facility] REPOSITORY TYPE CODE TESTS RESULT OUT OF REFERENCE UNITS RANGE LAB L509.4001 See Comment ng/mL Progesterone Normal 0.24 Result Comment: Progesterone Reference Table: UNITS Female: Follicular 0.15 - 1.40 ng/mL Luteal 3.34 - 25.56 ng/mL Mid-luteal 4.44 - 28.03 ng/mL Postmenopausal 0.0 - 0.73 ng/mL : 1st Trimester 11.22 - 90.00 ng/mL 2nd Trimester 25.55 - 89.40 ng/mL 3rd Trimester 48.40 -422.50 ng/mL Performed By: #### L509.4001 #### [facility] [address] [place], [address] DHEA SULFATE Collected: 10/08/2017 Status: F Source: [place] 5:37 PM [facility] REPOSITORY Order Comment: Has Patient had Radioactive Injection for X-ray?: N TYPE CODE TESTS RESULT OUT OF RANGE REFERENCE UNITS LAB L3300.1500 84.8-378.0 ug/dL Normal DHEA SULF 92.7 4020 Performed By: #### L3300.1500, L3400.4800, L3100.9000 #### [facility] (refer to report for specific site) refer to report for address and phone number TESTOSTERONE FREE Collected: 10/08/2017 Status: F Source: [place] 5:37 PM [facility] REPOSITORY Order Comment: Has Patient had Radioactive Injection for X-ray?: N TYPE CODE TESTS RESULT OUT OF RANGE REFERENCE UNITS LAB L3400.4800 0.0-4.2 pg/mL Normal TEST FR 2.0 [id number] Result Comment: Performed at: [address] [id number] Residential Caregiver: Kingsley Grace PhD, Phone: [phone] Performed at: [address] [id number] Residential Caregiver: Vic London MD, Phone: [phone] Performed By: #### L3300.1500, L3400.4800, L3100.9000 #### [facility] (refer to report for specific site) refer to report for address and phone number [phone] Collected: Status: F Source: [place] 10/08/2017 5:37 PM [facility] REPOSITORY Order Comment: Has Patient had Radioactive Injection for X-ray?: N TYPE CODE TESTS RESULT OUT OF RANGE REFERENCE UNITS LAB L3100.9000 . ng/dL Normal HYDROXPROG 17 35 Result Comment: Adult Female Follicular 15 - 70 Luteal 35 - 290 This test was developed and its performance characteristics determined by [employer]. It has not been cleared or approved by the Food and Drug Administration. Performed at: [address] [id number] Residential Caregiver: Vic London MD, Phone: [phone] Performed By: #### L3300.1500, L3400.4800, L3100.9000 #### [facility] (refer to report for specific site) refer to report for address and phone number SALPINGOGRAM Observed: 09/03/2017 Status: F Source: [place] 1:31 PM [facility] REPOSITORY [facility] Imaging Services [address] [place] [address] Salpingogram MR#: [id number] Acct: [id number] Name: CHATO ROBERTSON Rep #: [id number] : 1990 F 27 From: Jerad Garcia MD PCP: Ivonne Carlson MD Status: REG CLI Study: Salpingogram Date of Exam: 09/03/17 Exam# [id number] Ordering Dr: Ray Calixto MD STUDY: HYSTEROSALPINGOGRAM. REASON FOR EXAM: Female, 27 years old. Infertility. FLUOROSCOPY TIME (if supplied): (0:15) minutes/seconds TECHNIQUE: A hysterosalpingogram was performed by the advisor consultant. Imaging was provided. COMPARISON: None. FINDINGS: The uterus is unremarkable. Both fallopian tubes are patent and there is free flow. RAD/Salpingogram IMPRESSION: Normal hysterosalpingogram. Electronically Signed: Jerad Garcia MD at 15:43 EDT Tel [phone], Service support , CC: Ivonne Carlson MD; Ray Calixto MD Director Funeral: Signed TSH Collected: 05/25/2017 Status: F Source: [place] 3:52 PM [facility] REPOSITORY TYPE CODE TESTS RESULT OUT OF RANGE REFERENCE UNITS LAB TSH 0.400-5.500 uU/mL TSH 2.800 Result Comment: If the patient is , TSH reference range varies by gestational period: First Trimester 0.100-2.500 uU/mL Second Trimester 0.200-3.000 uU/mL Third Trimester 0.300-3.000 uU/mL References: 1. Rene L, Nataly M, Marv EK, et al. Management of Thyroid Dysfunction during and : An Endocrine Society Clinical Practice Guideline. J Clin Endocrinol Metab, 2012:97:7767-2814. 2. Chris REESE. Overview of thyroid disease in . UpToDate. 2016. Accessed on September 28, 2015. Performed By: #### TSH, PROL #### [facility] [address] [place], [place] [address] PROLACTIN Collected: 05/25/2017 Status: F Source: [place] 3:52 PM [facility] REPOSITORY TYPE CODE TESTS RESULT OUT OF REFERENCE UNITS RANGE LAB PROL 4.5-26.8 ng/mL Prolactin 10.3 Performed By: #### TSH, PROL #### [facility] [address] [place], [place] [address] PROGRESS Observed: 05/25/2017 Status: COMPLETED Source: [place] 2:23 PM [facility] REPOSITORY HNO ID: [id number] Author: Ray Calixto Service: (none) Author Type: Physician Type: Progress Notes Filed: 05/25/2017 5:15 PM Note Text: Chato Robertson is a 27 year old female who presents for problem visit for preconceptual counseling and irreg. menses. HPI: 27 YOF did well on 3 month OCP packs. Stopped in Nov Would like to be . LMP was 03/2017 and none since. Neg. HCG test. H/o heavy, crampy menses so has been on OCps since teen years. Has never been before. No H/o STIs. 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 PAST MEDICAL HISTORY Diagnosis Date - Adjustment disorder with depressed mood - Vaginal septum see note 02/16/12 PAST SURGICAL HISTORY Procedure Laterality Date - NONE FAMILY HISTORY Problem Relation Age of Onset - Prostate Cancer Maternal Grandfather - Breast Cancer Paternal Grandmother - None Paternal Grandmother Social History Marital status: Spouse name: Years of education: Number of children: Occupational History Occupation Employer Comment [employer]* Social History Main Topics Smoking status: Never Smoker Smokeless status: Never Used Alcohol use: No Drug use: No Sexual activity: Yes Partners with: Male control/protection: Pill Current Outpatient Prescriptions: Levonorgestrel-Ethinyl Estrad (JOLESSA) 0.15 mg-30 mcg per tablet, 3 month pack Take 1 tablet by mouth once daily. SERTRALINE HCL (ZOLOFT ORAL) Take by mouth. No current facility-administered medications for this visit. Allergies As of Date: 05/25/2017 (No Known Allergies) Fully Assessed 09/05/2016 REVIEW OF SYSTEMS Abdomen: No bloating, early satiety, indigestion, or increased flatulence. No abdominal pain, nausea, vomiting, diarrhea, or constipation. Bladder: No dysuria, gross hematuria, urinary frequency, urinary urgency, or incontinence. Breast: No breast lumps, nipple d/c, overlying skin changes, redness or skin retraction. Expanded ROS: no hair or skin changes Allergies and current medication updated:Yes EXAM: Wt 140 lb (63.5kg) GENERAL: pleasant, female in no apparent distress ASSESSMENT AND PLAN: preconceptual counselling PNV rx had chicken pox, declines CF screen, had all vaccines, no family h/o genetic abnormalities that would concern her. D/w her avoid binge drinking, tob, drugs and healthy lifestyle. Cyclic provera to induce menses could consider HSG as had vaginal deptu so would be at increased risk of uterine abnormalities. If uterine abnormalities would consider eval of urinary tract. if doesn't conceive in another 6 months consider HSG and empiric clomid questions answered, she agrees w/ plan Ray Calixto MD ALLERGIES ALLERGIES DATE TYPE / CODE NAME / CODE REACTION SEVERITY SOURCE 04/14/2018 Drug No Known Unknown [facility] Allergy/416 Allergies/B35253 Hospital 436414(SNOM 0388(RXNORM) Repository ED CT) Drug NO KNOWN [facility] Class/64150 ALLERGIES [facility] 1003(SNOMED Repository CT) ENCOUNTERS ENCOUNTERS ADMIT/DISCHARGE ACCOUNT ADMITTING ENCOUNTER LOCATION SOURCE NUMBER CLASS 04/14/2018/04/14/19 [id number] Ambulatory BMSBuilding:B [place] [address] [facility] Repository 03/29/2018 [id number] Ambulatory [facility] ing:OPUS Repository 03/15/2018/03/15/20 [id number] Ambulatory BMSBuilding:B [place] 18 [facility] Repository 02/19/2018 [id number] Ambulatory [facility] ing:LAB.FUTUR Repository E 02/16/2018/02/17/20 [id number] Ambulatory BMSBuilding:B [place] [address] [facility] Repository 01/28/2018 [id number] Ambulatory [facility] ing:LAB Repository 01/28/2018 [id number] Ambulatory Building:[facility] Repository 01/21/2018/01/22/20 [id number] Ambulatory Building:[address] Repository 01/19/2018/01/20/20 [id number] Ambulatory BMSBuilding:B [place] 18 [facility] Repository 12/21/2017 [id number] Ambulatory [facility] ing:POLAB3 Repository 12/21/2017/12/22/19 [id number] Ambulatory BMSBuilding:B [place] [address] Repository 10/26/2017 [id number] Ambulatory [facility] ing:LAB Repository 10/13/2017 [id number] Ambulatory [facility] ing:LAB Repository 10/08/2017 [id number] Ambulatory [facility] ing:LAB Repository 10/05/2017/10/06/19 [id number] Ambulatory BMSBuilding:B [place] 18 [facility] Repository 09/03/2017 [id number] Ambulatory [facility] ing:RAD Repository 05/25/2017/05/25/19 [id number] Ambulatory [address] Repository 05/25/2017/05/26/19 [id number] Ambulatory [address] Repository PAYERS PAYERS ENCOUNTER GUARANTOR PAYER SUBSCRIBER SOURCE 04/14/2018 CHATO [id number] Primary NOEL GASTON: [place] Insurance:AET[place]Simin [id number] Number: Hospital [address]Uzh: (021) [id number] Repository [phone] () Date:6670-51-08DI [address] [place] [address]KT: 04/14/2018 Secondary NOT GIVENUNK [place] Insurance:SELF PAY Community [facility]: Effective Repository Date:2018-04-14 03/29/2018 CHATO R [id number] Primary NOEL R LUCCIDOB: [place] Insurance:AETNAPolicy [id number] [facility], [place] Number: Hospital [id number]: (240) [id number] Repository [phone] (HP) Date:1749-32-04SV [address] [place] [address]ZF: 03/29/2018 Secondary NOT GIVENUNK [place] Insurance:SELF PAY Community [facility]: Effective Repository Date:2018-03-19 03/15/2018 CHATO R [id number] Primary Noel R LucciDOB: [place] Insurance:AETNAPolicy [id number] [facility] Number: Hospital [id number]: (240) [id number] Repository [phone] (HP) Date:3837-14-55MP [address] [place] [address]VS: 03/15/2018 Secondary NOT GIVENUNK [place] Insurance:SELF PAY Community [facility] Number: Effective Repository Date:2018-03-15 02/19/2018 CHATO R [id number] Primary Noel R LucciDOB: [place] Insurance:AETNAPolicy [id number] [facility] Number: Hospital [address]Wjk: (240) [id number] Repository [phone] () Date:1289-49-86RG [address] [place] [address]LL: 02/19/2018 Secondary NOT GIVENUNK [place] Insurance:SELF PAY Community [facility] Number: Effective Repository Date:2018-02-17 02/16/2018 CHATO R [id number] Primary Noel R LucciDOB: [place] [facility] Insurance:AETNAPolicy [id number] [facility] [place] Number: [facility] [address]Cqb: (240) [id number] Repository [phone] (HP) Date:4350-55-22SF [address], [place] [address]EY: 02/16/2018 Secondary NOT GIVENUNK [place] Insurance:SELF PAY Community [facility] Number: Effective Repository Date:2018-02-16 01/28/2018 CHATO R [id number] Primary Noel R LucciDOB: [place] N [place] Insurance:AETNAPolicy [id number] [facility] [place] Number: [facility] [id number]: (240) [id number] Repository [phone] () Date:4728-17-05HF [address], [place] [address]JS: 01/28/2018 Secondary NOT GIVENUNK [place] Insurance:SELF PAY [facility] Number: Effective Repository Date:2018-01-28 01/28/2018 CHATO LUCCIDOB: Primary NOEL LUCCIDOB: [facility] Insurance:AETNAPolicy [id number] [place] [address] Number: [address] [place] Repository [facility] [place] [id number] [facility] [address]Nzu: (240) Date: (HP) 01/21/2018 CHATO LUCCIDOB: Primary NOEL LUCCIDOB: [facility] Insurance:AETNAPolicy [id number] [place] [address] Number: [address] [place] Repository [place] [id number] [place] [address]Hew: (240) Date: [phone] (HP) 01/19/2018 CHATO R [id number] Primary Noel R LucciDOB: [place] Insurance:AETNAPolicy [id number] [facility] Number: Hospital [id number]: (240) [id number] Repository [phone] () Date:3081-81-95AG [address] [address]GX: 01/19/2018 Secondary NOT GIVENUNK [place] Insurance:SELF PAY Community [facility] Number: Effective Repository Date:2017-12-22 12/21/2017 CHATO R [id number] Primary Noel R LucciDOB: [place] Insurance:AETNAPolicy [id number] [facility] Number: Hospital [address]Fhh: (240) [id number] Repository [phone] () Date:5752-64-21PV [address], [place] [address]RO: 12/21/2017 Secondary NOT GIVENUNK [place] Insurance:SELF PAY Community [facility] Number: Effective Repository Date:2017-12-21 12/21/2017 CHATO R [id number] Primary Noel R LucciDOB: [place] Insurance:AETNAPolicy [id number] [facility] Number: Hospital [address]Zad: (240) [id number] Repository [phone] () Date:1505-86-32KA [address], [place] [address]IE: 12/21/2017 Secondary NOT GIVENUNK [place] Insurance:SELF PAY Community [facility] Number: Effective Repository Date:2017-12-21 10/26/2017 CHATO R [id number] Primary Noel R LucciDOB: [place] Insurance:AETNAPolicy [id number] [facility] Number: Hospital [address]Fal: (240) [id number] Repository [phone] (HP) Date:4045-32-98GV [address] [address]AR: 10/26/2017 Secondary NOT GIVENUNK [place] Insurance:SELF PAY Community [facility] Number: Effective Repository Date:2017-10-26 10/13/2017 CHATO [id number] Primary Noel R LucciDOB: [place] Insurance:AETNAPolicy [id number] [facility] [place] Number: Hospital [address]Tqg: (240) [id number] Repository [phone] (HP) Date:4222-77-02VT [address] [place] [address]QY: 10/13/2017 Secondary NOT GIVENUNK [place] Insurance:SELF PAY Community [facility] Number: Effective Repository Date:2017-10-13 10/08/2017 CHATOCOURTNEY [id number] Primary Noel R LucciDOB: [place] Insurance:AETNAPolicy [id number] [facility] Number: Hospital [id number]: (240) [id number] Repository [phone] (HP) Date:8307-37-99EG [address] [address]CC: 10/08/2017 Secondary NOT GIVENUNK [place] Insurance:SELF PAY Community [facility] Number: Effective Repository Date:2017-10-08 10/05/2017 CHATO [id number] N Primary Noel R LucciDOB: [place] Insurance:AETNAPolicy [id number] [facility] [place] Number: Hospital [id number]: (240) [id number] Repository [phone] (HP) Date:1173-59-91ZI [address]AND[address] [place] [address]WJ: 10/05/2017 Secondary NOT GIVENUNK [place] Insurance:SELF PAY Community [facility] Number: Effective Repository Date:2017-10-05 09/03/2017 Chato [id number] N Primary Noel Dinh RobertsonDOB: [place] Insurance:AETNASimin [id number] Psychiatric CenterZEN id Number: [facility] [id number]: (250) [id number] Repository [phone] () Date:4028-21-50MW [address] [place] [address]HP: 09/03/2017 Secondary NOT GIVENUNK [place] Insurance:SELF PAY [facility] Number: Effective Repository Date:2017-09-01
== END ==
PROVIDERS: Family Provider Family Medicine; PCP Family Medicine; Referring Provider Obstetrics & Gynecology; Visit Provider Obstetrics & Gynecology
DX: Z36.89 Encounter for other specified antenatal screening (principal)
CPT/HCPCS: 76805

== ENCOUNTER → 2018-05-12 12:29 | Outpatient (CLI) | payer OTHER, SELFPAY ==
[2018-05-12 12:08] VITALS: BMI 24.5
[2018-05-12 13:39] LABS: Absolute Lymphocyte Count 1.77 X10^3/ul (0.83-4.51); Basophil# 0.03 X10^3/uL; Basophil% 0.3 % (0-1); Eosinophil# 0.08 X10^3/uL; Eosinophils% 0.7 % (0-5); Hematocrit 33.6 % (37-47); Hemoglobin 11.3 g/dl (12.0-15.0); Lymphocyte # 1.77 X10^3/ul (4.0); Lymphocyte % 16.5 % (19-41); Mean Corp Hgb Conc 33.6 g/gl (32-36); Mean Corpuscular Volume 98.2 fL (81-99); Mean Platelet Vol. 9.7 fl (6.2-12.0); Monocyte# 0.78 X10^3/uL; Monocyte% 7.3 % (0-10); Neutrophil # 7.98 X10^3/uL (2.7-7.7); Neutrophil % 74.6 % (47-70); POSITIVE COUNT NO; POSITIVE DIFFERENTIAL NO; POSITIVE MORPHOLOGY NO; Platelet Count 244 K/mm3 (150-450); RBC Distribution Width SD 44.8 fl (35.1-43.9); Red Blood Count 3.42 M/mm3 (4.2-5.4); White Blood Count 10.7 K/mm3 (4.4-11.0)
[2018-05-12 14:13] LABS: Glucose Challenge Gest 1H 50g 106 mg/dL (70-140)
== END ==
PROVIDERS: Family Provider Family Medicine; PCP Family Medicine; Referring Provider Obstetrics & Gynecology; Visit Provider Obstetrics & Gynecology
DX: Z34.90 Encounter for supervision of normal pregnancy, unspecified, unspecified trimester (principal)
CPT/HCPCS: 36415; 82950; 85025

== ENCOUNTER → 2018-07-07 16:37 | Outpatient (CLI) | payer OTHER, SELFPAY ==
[2018-07-07 16:37] VITALS: BMI 24.5
== END ==
PROVIDERS: Family Provider Family Medicine; PCP Family Medicine; Referring Provider Obstetrics & Gynecology; Visit Provider Obstetrics & Gynecology
DX: Z34.90 Encounter for supervision of normal pregnancy, unspecified, unspecified trimester (principal)
CPT/HCPCS: 87077; 87081; 87186

== ENCOUNTER 2018-07-17 02:56 | Inpatient (IN) | payer OTHER, SELFPAY ==
[2018-05-12 12:08] VITALS: BMI 24.5
[2018-07-14 12:09] VITALS: BMI 24.5
[2018-07-17 03:28] VITALS: BMI 26.5
[2018-07-17] MEDS: Lactated Ringers 1,000 ML 50 ML IV ×3 (04:05→15:14)
[2018-07-17] MEDS: Oxytocin 30 units/NS 500 ml 30 UNITS/500 ML IV.SOLN IV (04:18)
[2018-07-17 04:49] LABS: Absolute Neutrophil Count 10.4 X10^3/uL (2.0-7.7); Basophil# 0.03 X10^3/uL; Basophil% 0.2 % (0-1); Eosinophil# 0.07 X10^3/uL; Eosinophils% 0.5 % (0-5); Hematocrit 35.8 % (37-47); Hemoglobin 12.5 g/dl (12.0-15.0); Lymphocyte % 16.5 % (19-41); Mean Corp Hgb Conc 34.9 g/gl (32-36); Mean Corpuscular Hgb 33.2 pg (27.0-32.0); Mean Corpuscular Volume 95.2 fL (81-99); Mean Platelet Vol. 10.4 fl (6.2-12.0); Monocyte% 7.9 % (0-10); Neutrophil # 10.38 X10^3/uL (2.7-7.7); Neutrophil % 74.4 % (47-70); Platelet Count 219 K/mm3 (150-450); RBC Distribution Width CV 13.4 % (11.6-14.6); RBC Distribution Width SD 46.5 fl (35.1-43.9); Red Blood Count 3.76 M/mm3 (4.2-5.4)
[2018-07-17 04:56] LABS: POSITIVE COUNT NO; POSITIVE DIFFERENTIAL NO; POSITIVE MORPHOLOGY NO
[2018-07-17] MEDS: Ondansetron 4 MG/2 ML Vial IV (09:05)
[2018-07-17] MEDS: fentaNYL-bupivacaine (epidural) 100 ML BAG EPIDURAL ×2 (09:56→14:31)
--- NOTE | 2018-07-17 10:40 | PCM.HP.OB ---
- Problem List (1) PROM (premature rupture of membranes) Status: Acute (2) GBS (group B Streptococcus carrier), +RV culture, currently Status: Acute (3) Supervision of normal Status: Acute Qualifiers: Comment: PRR BELLA 08/02/18 gender surprise Rj (4) Status: Acute Qualifiers: Comment: sequential screen negative. carrier screening declined. anatomy us normal History Date of Admission: 07/17/18 Final BELLA: 08/02/18 Gestational age: 37 Weeks and 5 Days History of this : This is a 28 year-old, at 37 weeks gestational age presents with PROM. she denies any vb good fm no regular ctx. Medical History: Medical History (Last Reviewed 07/14/18 @ 12:09 by Kathleen Mccall) Anxiety F41.9 History of hysterosalpingogram Z98.890 Allergies No Known Allergies Allergy (Verified 07/17/18 03:38) Home Medications: Home Medications vitamin,calcium,tdpuksrv-pvjx-qwyuf acid tablet 1 tab PO DAILY 12/21/17 Smoking Status: Never smoker Alcohol: None Number of Fetus(es): 1 Heart Tracin moderate variability reactive no decelerations category I tracing [place]: no regular History Past Pregnancies: Past Pregnancies Delivery Date Name GA/Weeks Outcome Route Weight Gender Labor Length Anesthesia Delivery Location Provider FOB Labs: Mom's Labs & Results 07/17/18 07/17/18 04:05 04:05 WBC 14.0 H RBC 3.76 L Hgb 12.5 Hct 35.8 L MCV 95.2 MCH 33.2 H MCHC 34.9 RDW 13.4 RDW Differential 46.5 H Plt Count 219 MPV 10.4 Immature Gran % (Auto) 0.500 Neut % (Auto) 74.4 H Lymph % (Auto) 16.5 L [place] % (Auto) 7.9 Eos % (Auto) 0.5 Baso % (Auto) 0.2 Absolute Neuts (auto) 10.4 H Absolute Lymphs (auto) 2.30 Total Counted Not Reportable Blood Type O POSITIVE Antibody Screen NEGATIVE Course Did the patient receive Yes care? Labs Blood Type: O RH: POSITIVE RPR/VDRL/Syphilis Nonreactive Rubella status Immune HbSAg Negative Date Done: 12/21/17 Chlamydia Negative Gonorrhea Negative HIV/AIDS Non-Reactive Group B Strep: Negative Current Obstetrical History Gestational Diabetes No Incompetent Cervix No Infertility Yes: clomid/prolactin IUGR No Macrosomia No Hypertension/Pre-eclampsia No Placenta Previa/Abruption No PTL/PROM No Uterine anomaly No Oligohydramnios No Polyhydramnios No Multiple gestation No Past Medical History Asthma No Diabetes No Hypertension No Heart disease No Mitral valve prolapse No Neurologic/Seizure disorder/ No Migraines Kidney disease No Liver disease No Varicosities No Clotting disorders/Hx of DVT No Thyroid Dysfunction No Other medical diseases No Psychiatric disorders No Major trauma No Abnormal PAP smear No Sleep apnea No Mammogram in the last 2 years Yes: within last 8 years Social History Marital Status: Alleged father Rj Robertson Hx Smoking No Smoking Status Never smoker How long have you used pt denies substances (years)? Expected Infant Delivery Method: Spontaneous Vaginal Review of Systems Constitutional: Denies: Fever, Malaise Eyes: Denies: Blurred vision, Vision Change HEENT: Denies: Head Aches, Visual Changes Cardiovascular: Denies: Chest Pain, Palpitations Respiratory: Denies: Cough, Shortness of Breath, Wheezing Gastrointestinal: Denies: Abdominal Pain, Diarrhea, Nausea, Vomiting Genitourinary: Denies: Dysuria, Hematuria Musculoskeletal: Denies: Joint Pain, Muscle pain Skin: Denies: Lesions, Rash Neurological: Denies: Blurred vision, Focal weakness, Headaches Psychiatric: Denies: Anxiety, Depression Endocrine: Denies: Heat/ Cold Intolerance Hematologic/ Lymphatic: Denies: Easy Bruising, Easy Bleeding Physical Exam General: Alert, Cooperative, No apparent distress HEENT: Atraumatic, Normocephalic. Negative for: Thyromegaly, Lymphadenopathy Cardiovascular: Regular rate Lungs: Normal air movement Abdomen: Soft, Non Tender, Gravid Neurological: Deep Tendon Reflexes 2+/4 and Symmetrical, Neuro grossly intact. Negative for: Clonus DIGITAL STRATEGY DIRECTOR: Normal external genitalia. Negative for: Vulvar lesions Estimated gestational size: Appropriate for gestational size Presentation: Cephalic Cervix Dilation (cm): 1 Assessment/Plan All Active Problems (Last Reviewed 07/14/18 @ 12:09 by Kathleen Mccall) PROM (premature rupture of membranes) (Acute) GBS (group B Streptococcus carrier), +RV culture, currently (Acute) Supervision of normal (Acute) (Acute) Elevated prolactin level (Resolved) Secondary amenorrhea (Resolved) This is a 28 year-old, at 37 weeks gestational age presents PROM Patient presents IOL, plan management for , pitocin per protocol Pain management: plans epidural GBS positive- pcn Management of any complications: none I have reviewed the PFSH and made any clinically relevant updates.
--- NOTE | 2018-07-17 10:44 | HP.PCM_ITS ---
- Problem List (1) PROM (premature rupture of membranes) Status: Acute (2) GBS (group B Streptococcus carrier), +RV culture, currently Status: Acute (3) Supervision of normal Status: Acute Qualifiers: Comment: PRR BELLA 08/02/18 gender surprise Rj (4) Status: Acute Qualifiers: Comment: sequential screen negative. carrier screening declined. anatomy us normal History Date of Admission: 07/17/18 Final BELLA: 08/02/18 Gestational age: 37 Weeks and 5 Days History of this : This is a 28 year-old, at 37 weeks gestational age presents with PROM. she denies any vb good fm no regular ctx. Medical History: Medical History (Last Reviewed 07/14/18 @ 12:09 by Kathleen Mccall) Anxiety F41.9 History of hysterosalpingogram Z98.890 Allergies No Known Allergies Allergy (Verified 07/17/18 03:38) Home Medications: Home Medications vitamin,calcium,hhiwghnl-tuwz-sncuh acid tablet 1 tab PO DAILY 12/21/17 Smoking Status: Never smoker Alcohol: None Number of Fetus(es): 1 Heart Tracin moderate variability reactive no decelerations category I tracing [place]: no regular History Past Pregnancies: Past Pregnancies Delivery Date Name GA/Weeks Outcome Route Weight Gender Labor Length Anesthesia Delivery Location Provider FOB Labs: Mom's Labs & Results 07/17/18 07/17/18 04:05 04:05 WBC 14.0 H RBC 3.76 L Hgb 12.5 Hct 35.8 L MCV 95.2 MCH 33.2 H MCHC 34.9 RDW 13.4 RDW Differential 46.5 H Plt Count 219 MPV 10.4 Immature Gran % (Auto) 0.500 Neut % (Auto) 74.4 H Lymph % (Auto) 16.5 L [place] % (Auto) 7.9 Eos % (Auto) 0.5 Baso % (Auto) 0.2 Absolute Neuts (auto) 10.4 H Absolute Lymphs (auto) 2.30 Total Counted Not Reportable Blood Type O POSITIVE Antibody Screen NEGATIVE Course Did the patient receive Yes care? Labs Blood Type: O RH: POSITIVE RPR/VDRL/Syphilis Nonreactive Rubella status Immune HbSAg Negative Date Done: 12/21/17 Chlamydia Negative Gonorrhea Negative HIV/AIDS Non-Reactive Group B Strep: Negative Current Obstetrical History Gestational Diabetes No Incompetent Cervix No Infertility Yes: clomid/prolactin IUGR No Macrosomia No Hypertension/Pre-eclampsia No Placenta Previa/Abruption No PTL/PROM No Uterine anomaly No Oligohydramnios No Polyhydramnios No Multiple gestation No Past Medical History Asthma No Diabetes No Hypertension No Heart disease No Mitral valve prolapse No Neurologic/Seizure disorder/ No Migraines Kidney disease No Liver disease No Varicosities No Clotting disorders/Hx of DVT No Thyroid Dysfunction No Other medical diseases No Psychiatric disorders No Major trauma No Abnormal PAP smear No Sleep apnea No Mammogram in the last 2 years Yes: within last 8 years Social History Marital Status: Alleged father Rj Robertson Hx Smoking No Smoking Status Never smoker How long have you used pt denies substances (years)? Expected Infant Delivery Method: Spontaneous Vaginal Review of Systems Constitutional: Denies: Fever, Malaise Eyes: Denies: Blurred vision, Vision Change HEENT: Denies: Head Aches, Visual Changes Cardiovascular: Denies: Chest Pain, Palpitations Respiratory: Denies: Cough, Shortness of Breath, Wheezing Gastrointestinal: Denies: Abdominal Pain, Diarrhea, Nausea, Vomiting Genitourinary: Denies: Dysuria, Hematuria Musculoskeletal: Denies: Joint Pain, Muscle pain Skin: Denies: Lesions, Rash Neurological: Denies: Blurred vision, Focal weakness, Headaches Psychiatric: Denies: Anxiety, Depression Endocrine: Denies: Heat/ Cold Intolerance Hematologic/ Lymphatic: Denies: Easy Bruising, Easy Bleeding Physical Exam General: Alert, Cooperative, No apparent distress HEENT: Atraumatic, Normocephalic. Negative for: Thyromegaly, Lymphadenopathy Cardiovascular: Regular rate Lungs: Normal air movement Abdomen: Soft, Non Tender, Gravid Neurological: Deep Tendon Reflexes 2+/4 and Symmetrical, Neuro grossly intact. Negative for: Clonus SAL[employer] TE[employer]ER: Normal external genitalia. Negative for: Vulvar lesions Estimated gestational size: Appropriate for gestational size Presentation: Cephalic Cervix Dilation (cm): 1 Assessment/Plan All Active Problems (Last Reviewed 07/14/18 @ 12:09 by Kathleen Mccall) PROM (premature rupture of membranes) (Acute) GBS (group B Streptococcus carrier), +RV culture, currently (Acute) Supervision of normal (Acute) (Acute) Elevated prolactin level (Resolved) Secondary amenorrhea (Resolved) This is a 28 year-old, at 37 weeks gestational age presents PROM Patient presents IOL, plan management for , pitocin per protocol Pain management: plans epidural GBS positive- pcn Management of any complications: none I have reviewed the PFSH and made any clinically relevant updates.
--- NOTE | 2018-07-17 14:03 | PCM.OPRPT ---
Problem List (1) PROM (premature rupture of membranes) Status: Acute (2) GBS (group B Streptococcus carrier), +RV culture, currently Status: Acute (3) Supervision of normal Status: Acute Qualifiers: Comment: PRR BELLA 08/02/18 gender surprise Rj (4) Status: Acute Qualifiers: Comment: sequential screen negative. carrier screening declined. anatomy us normal Vaginal Delivery Maternal Presentation: Spontaneous Rupture of Membranes Method of Induction: Pitocin Medical Reason for Induction: Premature Rupture of Membranes Amniotic Membrane Rupture Type: Spontaneous at home Amniotic Fluid Description: Clear Final BELLA: 08/02/18 Gestational age: 37 Weeks and 5 Days Date of Procedure: 07/17/18 Pre-Operative Diagnosis: prom Post-Operative Diagnosis: same Surgery/ Procedure Performed: Spontaneous Vaginal Delivery Type of Anesthesia: Epidural Description of Procedure: Patient began pushing and delivered the head in the BIANCA presentation. The head was delivered atraumatically and a loose nuchal cord ?1 was identified and easily reduced over the 's head. The anterior and posterior shoulders delivered without complication followed by the rest of the infant and the was placed on the maternal abdomen. Delayed cord clamping was employed for approximately 60 seconds. Cord was clamped and cut and gentle traction was applied to the cord and the placenta delivered spontaneously immediately following it was noted to be intact with three-vessel cord. The perineum and vagina were inspected and noted to have a tear of the previously noted abnormal partial transverse vaginal septum. The remnant of the vaginal symptom was removed and a second-degree perineal laceration was noted. The entire area was repaired with 3-0 Vicryl repeat in the usual fashion.. EBL was 500 cc. Patient and infant tolerated delivery well. Presentation: BIANCA Placental Delivery Description: Spontaneous Placenta Disposition: [facility] Cord Vessel Description: 3 Vessels Cord Entanglement: Around neck x 1, loose Estimated Blood Loss: 500 Infant A gender: Female Episiotomy Description: None Laceration: Perineal Extension/lac, 2nd degree Medications given after delivery: IV Pitocin Complications: None
[2018-07-17] MEDS: Oxytocin 30 units/NS 500 ml 30 UNITS/500 ML IV.SOLN 334 UNITS IV (16:17)
[2018-07-17] MEDS: Oxytocin 30 units/NS 500 ml 30 UNITS/500 ML IV.SOLN 167 UNITS IV (16:47)
[2018-07-17] MEDS: 0.9% Saline Lock 10 ML Syringe IV (18:09)
[2018-07-17 20:20] VITALS: BP 95/54; PULSE 86; RESP 16; TEMP 37.1; O2SAT 99
[2018-07-17] MEDS: Naproxen 250 MG Tablet 500 MG PO (20:20)
[2018-07-18 00:20] VITALS: BP 109/59; PULSE 80; RESP 16; TEMP 36.7; O2SAT 99
[2018-07-18] MEDS: Acetaminophen 500 MG Tablet 1000 MG PO ×2 (00:32→12:21)
[2018-07-18 04:55] VITALS: BP 92/55; PULSE 98; RESP 16; TEMP 36.8; O2SAT 98
--- NOTE | 2018-07-18 08:06 | PCM.PN.OB ---
Patient Problems: Active and Suspected Problems (Last Reviewed 07/14/18 @ 12:09 by Kathleen Mccall) PROM (premature rupture of membranes) (Acute) Subjective: doing well no complaints pain controlled no CP SOB N V ambulating well tolerating po lochia moderate, going well - Physical Exam General: Alert, Oriented x3 Vital Signs Temp Pulse Resp BP Pulse Ox 98.2 F 98 16 92/55 L 98 07/18/18 04:55 07/18/18 04:55 07/18/18 04:55 07/18/18 04:55 07/18/18 04:55 Oxygen Delivery Method Room Air Weight: 169 lb 5.04 oz Body Mass Index (BMI) 26.5 Intake and Output for Last 24 Hours 07/16/18 07/17/18 07/18/18 23:59 23:59 23:59 Intake Total 4039 / 4039 Output Total 3200 / 3200 Balance 839 / 839 Medical Necessity - Tobacco Use Smoking Status: Never smoker Assessment/Plan All Active Problems (Last Reviewed 07/14/18 @ 12:09 by Kathleen Mccall) PROM (premature rupture of membranes) (Acute) GBS (group B Streptococcus carrier), +RV culture, currently (Acute) Supervision of normal (Acute) (Acute) Elevated prolactin level (Resolved) Secondary amenorrhea (Resolved) s/p PPD # 1 1. routine post delivery care 2. breast feeding- support given 3. rh positive 4. rubella immune
[2018-07-18 08:40] VITALS: BP 118/69; PULSE 94; RESP 18; TEMP 36.7; O2SAT 98
[2018-07-18] MEDS: Naproxen 250 MG Tablet 500 MG PO (09:41)
[2018-07-18 12:28] VITALS: BP 110/65; PULSE 86; RESP 18; TEMP 36.8; O2SAT 98
[2018-07-18] MEDS: oxyCODONE 5 MG Tablet PO ×2 (13:34→20:53)
[2018-07-18 20:00] VITALS: BP 112/63; PULSE 88; RESP 16; TEMP 37
[2018-07-18] MEDS: Senna/Docusate Sodium 1 Tablet PO (20:54)
[2018-07-19 02:27] VITALS: BP 108/73; PULSE 74; RESP 16; TEMP 36.6
--- NOTE | 2018-07-19 07:31 | PCM.PN.OB ---
Patient Problems: Active and Suspected Problems (Last Reviewed 07/14/18 @ 12:09 by Kathleen Mccall) PROM (premature rupture of membranes) (Acute) Subjective: doing well no complaints pain controlled no CP SOB N V ambulating well tolerating po lochia moderate, going well - Physical Exam General: Alert, Oriented x3 Abdomen: Soft, Non Tender, - - ff below U Vital Signs Temp Pulse Resp BP Pulse Ox 97.8 F 74 16 108/73 98 07/19/18 02:27 07/19/18 02:27 07/19/18 02:27 07/19/18 02:27 07/18/18 12:28 Oxygen Delivery Method Room Air Weight: 169 lb 5.04 oz Body Mass Index (BMI) 26.5 Intake and Output for Last 24 Hours 07/17/18 07/18/18 07/19/18 23:59 23:59 23:59 Intake Total 4039 / 4039 Output Total 3200 / 3200 Balance 839 / 839 Medical Necessity - Tobacco Use Smoking Status: Never smoker Assessment/Plan All Active Problems (Last Reviewed 07/14/18 @ 12:09 by Kathleen Mccall) PROM (premature rupture of membranes) (Acute) GBS (group B Streptococcus carrier), +RV culture, currently (Acute) Supervision of normal (Acute) (Acute) Elevated prolactin level (Resolved) Secondary amenorrhea (Resolved) s/p PPD # 2 1. routine post delivery care 2. breast feeding- support given 3. rh positive 4. rubella immune 5. home today
--- NOTE | 2018-07-19 07:32 | PCM.DCVAG ---
Additional Instructions: If you experience any of the following, contact your healthcare provider. Bleeding that soaks a pad every hour for 2 hours Fever 100.4 or higher Unrelieved incision or abdominal pain Swelling, redness, discharge or bleeding from your incision or episiotomy site Your incision begins to separate Problems urinating (including inability to urinate or burning while urinating). Visual changes Severe headache Flu-like symptoms Pain or redness in one of both of your breasts Pain, warmth, tenderness or swelling in your legs, especially the calf area Frequent nausea and vomiting Symptoms of depression or anxiety If you experience any of the following, call 911 or go to the nearest Emergency Room. Chest pain Problems breathing Seizure activity Partial or complete paralysis of a body part, slurred speech, weakness or drooping of the face, or a sudden inability to walk or hold your balance Allergies/Adverse Reactions: Allergies No Known Allergies Allergy (Verified 07/17/18 03:38) Medications to take at Discharge vitamin,calcium,izatsfaz-wewi-aeqcu acid tablet 1 tab PO DAILY 12/21/17 Primary Care Physician: Salinas Carlson MD [Primary Care Provider] - Test Results: Test results from this visit will be discussed in further detail at your follow-up appointment, if applicable.
--- NOTE | 2018-07-19 07:33 | DCINST_ITS ---
Additional Instructions: If you experience any of the following, contact your healthcare provider. * Bleeding that soaks a pad every hour for 2 hours * Fever 100.4 or higher * Unrelieved incision or abdominal pain * Swelling, redness, discharge or bleeding from your incision or episiotomy site * Your incision begins to separate * Problems urinating (including inability to urinate or burning while urinating). * Visual changes * Severe headache * Flu-like symptoms * Pain or redness in one of both of your breasts * Pain, warmth, tenderness or swelling in your legs, especially the calf area * Frequent nausea and vomiting * Symptoms of depression or anxiety If you experience any of the following, call 911 or go to the nearest Emergency Room. * Chest pain * Problems breathing * Seizure activity * Partial or complete paralysis of a body part, slurred speech, weakness or drooping of the face, or a sudden inability to walk or hold your balance Allergies/Adverse Reactions: Allergies No Known Allergies Allergy (Verified 07/17/18 03:38) Medications to take at Discharge vitamin,calcium,gycoyebu-opsy-ghmqf acid tablet 1 tab PO DAILY 12/21/17 Primary Care Physician: Salinas Carlson MD [Primary Care Provider] - Test Results: Test results from this visit will be discussed in further detail at your follow- up appointment, if applicable.
[2018-07-19] MEDS: Naproxen 250 MG Tablet 500 MG PO (07:34)
[2018-07-19 08:53] VITALS: BP 121/77; PULSE 92; RESP 18; TEMP 36.4
[2018-07-19] MEDS: Acetaminophen 500 MG Tablet 1000 MG PO (12:40)
[2018-07-19 12:41] VITALS: BP 121/78; PULSE 92; RESP 16; TEMP 36.5
== END 2018-07-19 12:45 | disposition home or self-care (01) | DRG 807 ==
PROVIDERS: Admitting Provider Obstetrics & Gynecology; Family Provider Family Medicine; PCP Family Medicine; Referring Provider Obstetrics & Gynecology; Visit Provider Obstetrics & Gynecology
DX: O42.02 Full-term premature rupture of membranes, onset of labor within 24 hours of rupture (principal); Z37.0 Single live birth; O70.1 Second degree perineal laceration during delivery; O69.81X0 Labor and delivery complicated by cord around neck, without compression, not applicable or unspecified; O99.824 Streptococcus B carrier state complicating childbirth; Z3A.37 37 weeks gestation of pregnancy
CPT/HCPCS: 59025; 59050; 85025; 86850; 86900; 99218; J7120; A4216; G0378; J2405

== ENCOUNTER → 2019-09-21 12:28 | Outpatient (CLI) | payer OTHER, SELFPAY ==
[2019-09-21 12:16] VITALS: BMI 26.5
[2019-09-21 13:15] LABS: Absolute Lymphocyte Count 2.42 X10^3/uL (0.83-4.51); Absolute Neutrophil Count 7.8 X10^3/uL (2.0-7.7); Basophil# 0.07 X10^3/uL; Basophil% 0.6 % (0-1); Eosinophil# 0.19 X10^3/uL; Eosinophils% 1.7 % (0-5); Hemoglobin 13.1 g/dL (12.0-15.0); Lymphocyte # 2.42 X10^3/ul (4.0); Lymphocyte % 21.2 % (19-41); Mean Corp Hgb Conc 32.8 g/dL (32-36); Mean Corpuscular Hgb 31.5 pg (27.0-32.0); Mean Corpuscular Volume 96.2 fL (81-99); Mean Platelet Vol. 9.7 fl (6.2-12.0); Monocyte# 0.88 X10^3/uL; Monocyte% 7.7 % (0-10); NRBC Flagged by Analyzer 0 % (0-5); Neutrophil # 7.83 X10^3/uL (2.7-7.7); Neutrophil % 68.5 % (47-70); Platelet Count 304 K/mm3 (150-450); RBC Distribution Width CV 13.3 % (11.6-14.6); RBC Distribution Width SD 47.1 fl (35.1-43.9); Red Blood Count 4.16 M/mm3 (4.2-5.4); White Blood Count 11.4 K/mm3 (4.4-11.0)
[2019-09-21 15:26] LABS: HIV - WCH Non-Reactive (Nonreactive); Hepatitis B Surface Antigen Non-Reactive (Nonreactive); Hepatitis C Antibody Non-Reactive (Nonreactive); Rubella IgG 42.6 IU/mL
[2019-09-21 16:10] LABS: Amphetamine Urine VISTA NEGATIVE (<1000 ng/mL); Barbiturate Urine VISTA NEGATIVE (< 200 ng/mL); Benzodiazepine Urine VISTA NEGATIVE (< 200 ng/mL); Cocaine Urine VISTA NEGATIVE (< 300 ng/mL); Ecstacy Urine VISTA NEGATIVE (< 500 ng/mL); Methadone Urine VISTA NEGATIVE (< 300 ng/mL); PCP Urine VISTA NEGATIVE (< 25 ng/mL); THC Urine VISTA NEGATIVE (< 50 ng/mL); Vista UDS pH Range 6
[2019-09-22 01:57] LABS: Rapid Plasmin Reagin (RPR) NONREACTIVE (NONREACTIVE)
[2019-09-28 05:11] LABS: HPV APTIMA, High Risk Negative (Negative)
== END ==
PROVIDERS: PCP Family Medicine; Referring Provider Obstetrics & Gynecology; Visit Provider Obstetrics & Gynecology
DX: O09.90 Supervision of high risk pregnancy, unspecified, unspecified trimester (principal); Z3A.00 Weeks of gestation of pregnancy not specified; Z12.4 Encounter for screening for malignant neoplasm of cervix
CPT/HCPCS: 36415; 80307; 85025; 86592; 86703; 86762; 86803; 86850; 86900; 86901; 87086; 87088; 87340; 87491; 87591; 87624; 88175; G0145

== ENCOUNTER → 2019-10-21 | Outpatient (CLI) | payer OTHER, SELFPAY ==
[2019-10-21 14:56] VITALS: BMI 26.5
[2019-10-21 17:28] LABS: Chlamydia Trachomatis by PCR Negative (Negative); Neisserai gonorrhoeae by PCR Negative (Negative); Probe Check PASS; Sample Adequacy Control PASS; Specimen Processing Control PASS
== END | disposition home or self-care (01) ==
LOC: LABSPEC 15:27
PROVIDERS: PCP Family Medicine; Referring Provider Obstetrics & Gynecology; Visit Provider Obstetrics & Gynecology
DX: O09.90 Supervision of high risk pregnancy, unspecified, unspecified trimester (principal); Z3A.00 Weeks of gestation of pregnancy not specified
CPT/HCPCS: 87491; 87591

== ENCOUNTER → 2020-01-19 12:29 | Outpatient (CLI) | payer OTHER, SELFPAY ==
[2020-01-19 12:15] VITALS: BMI 26.5
[2020-01-19 14:14] LABS: Absolute Neutrophil Count 7.5 X10^3/uL (2.0-7.7); Basophil# 0.06 X10^3/uL; Basophil% 0.5 % (0-1); Eosinophil# 0.25 X10^3/uL; Eosinophils% 2.3 % (0-5); Hematocrit 34.2 % (37-47); Hemoglobin 11.3 g/dL (12.0-15.0); Lymphocyte % 19.9 % (19-41); Mean Corpuscular Hgb 32.6 pg (27.0-32.0); Mean Corpuscular Volume 98.6 fL (81-99); Mean Platelet Vol. 10.1 fl (6.2-12.0); Monocyte# 0.89 X10^3/uL; Monocyte% 8.1 % (0-10); NRBC Flagged by Analyzer 0 % (0-5); Neutrophil # 7.52 X10^3/uL (2.7-7.7); Neutrophil % 68.2 % (47-70); Platelet Count 242 K/mm3 (150-450); RBC Distribution Width CV 12.9 % (11.6-14.6); RBC Distribution Width SD 46.2 fl (35.1-43.9); Red Blood Count 3.47 M/mm3 (4.2-5.4)
[2020-01-19 14:30] LABS: Glucose Challenge Gest 1H 50g 104 mg/dL (70-140)
== END ==
PROVIDERS: PCP Family Medicine; Referring Provider Obstetrics & Gynecology; Visit Provider Obstetrics & Gynecology
DX: O09.90 Supervision of high risk pregnancy, unspecified, unspecified trimester (principal); Z13.1 Encounter for screening for diabetes mellitus; Z3A.00 Weeks of gestation of pregnancy not specified
CPT/HCPCS: 36415; 82950; 85025

== ENCOUNTER → 2020-03-22 | Outpatient (CLI) | payer OTHER, SELFPAY ==
[2020-03-22 15:48] VITALS: BMI 28.1
== END | disposition home or self-care (01) ==
LOC: LABSPEC 18:06
PROVIDERS: PCP Family Medicine; Visit Provider Obstetrics & Gynecology
DX: Z34.90 Encounter for supervision of normal pregnancy, unspecified, unspecified trimester (principal)
CPT/HCPCS: 87077; 87081; 87186

== ENCOUNTER → 2020-03-23 | Outpatient (CLI) | payer OTHER, SELFPAY ==
[2020-03-22 15:48] VITALS: BMI 28.1
== END | disposition home or self-care (01) ==
LOC: LABSPEC 18:17
PROVIDERS: PCP Family Medicine; Referring Provider Obstetrics & Gynecology; Visit Provider Obstetrics & Gynecology
DX: Z34.90 Encounter for supervision of normal pregnancy, unspecified, unspecified trimester (principal)
CPT/HCPCS: 87635; C9803; U0003

== ENCOUNTER → 2020-04-02 17:17 | Outpatient (CLI) | payer OTHER, SELFPAY ==
[2020-03-28 14:14] VITALS: BMI 28.3
== END ==
PROVIDERS: PCP Family Medicine; Referring Provider Obstetrics & Gynecology; Visit Provider Obstetrics & Gynecology
DX: O09.90 Supervision of high risk pregnancy, unspecified, unspecified trimester (principal); Z3A.00 Weeks of gestation of pregnancy not specified
CPT/HCPCS: 87635; C9803; U0003

== ENCOUNTER 2020-04-11 12:10 | Outpatient (CLI) | payer OTHER, SELFPAY ==
[2020-04-09 12:14] VITALS: BMI 28.8
[2020-04-11 12:35] VITALS: BP 120/76; PULSE 85; TEMP 36.8
[2020-04-11 12:42] VITALS: BMI 28.8
[2020-04-11 12:58] LABS: ROM Internal Control Test YES-OK TO RESULT pt. (Internal QC); ROM Patient Test Negative (Negative)
--- NOTE | 2020-04-11 17:24 | OB.TRI.PN ---
Progress Notes Date of Service: 04/11/20 Progress Note: Patient presents for triage evaluation secondary to leakage of fluid. ROM plus was negative. Patient was found to be 3 cm but not kendy regularly on the monitor. FHT: Moderate variability reactive no decelerations category I tracing [place]: No contractions Assessment and plan: Reactive NST, reassuring maternal and status patient discharged to home to follow-up at next scheduled office visit. See problem list details for additional plan information. Laboratory Studies: Laboratory Tests 04/11/20 Range/Units Unknown Vag Amniotic Fld Detect Negative (Negative) Multi Select Codes - Urinary/Genital Urinary/Genital CPT Codes: 00746-26 non-stress test Interp
== END 2020-04-11 13:20 | disposition home or self-care (01) ==
LOC: WPOUT 12:16 → WP 12:17
PROVIDERS: PCP Family Medicine; Referring Provider Obstetrics & Gynecology; Visit Provider Obstetrics & Gynecology
DX: O42.90 Premature rupture of membranes, unspecified as to length of time between rupture and onset of labor, unspecified weeks of gestation (principal); Z3A.00 Weeks of gestation of pregnancy not specified
CPT/HCPCS: 59025; 59050; 84112; 99218; G0378

== ENCOUNTER 2020-04-11 22:15 | Inpatient (IN) | payer OTHER, SELFPAY ==
[2020-04-11 12:42] VITALS: BMI 28.8
[2020-04-11 21:27] VITALS: BMI 29.1
[2020-04-11 21:32] VITALS: PULSE 87; TEMP 36.8; O2SAT 97
[2020-04-11 21:33] VITALS: BP 123/71; PULSE 86
[2020-04-11 22:13] LABS: ROM Internal Control Test YES-OK TO RESULT pt. (Internal QC)
[2020-04-11 22:14] LABS: ROM Patient Test POSITIVE (Negative)
[2020-04-11] MEDS: Lactated Ringers 1,000 ML 50 ML IV (22:35)
[2020-04-11 22:56] LABS: Absolute Neutrophil Count 10.3 X10^3/uL (2.0-7.7); Basophil# 0.07 X10^3/uL; Basophil% 0.5 % (0-1); Eosinophil# 0.19 X10^3/uL; Eosinophils% 1.3 % (0-5); Hematocrit 36.4 % (37-47); Hemoglobin 11.9 g/dL (12.0-15.0); Lymphocyte % 18.6 % (19-41); Mean Corp Hgb Conc 32.7 g/dL (32-36); Mean Corpuscular Hgb 32.5 pg (27.0-32.0); Mean Corpuscular Volume 99.5 fL (81-99); Mean Platelet Vol. 9.7 fl (6.2-12.0); Monocyte# 1.11 X10^3/uL; Monocyte% 7.6 % (0-10); NRBC Flagged by Analyzer 0 % (0-5); Neutrophil # 10.31 X10^3/uL (2.7-7.7); Neutrophil % 70.9 % (47-70); Platelet Count 238 K/mm3 (150-450); RBC Distribution Width CV 13.9 % (11.6-14.6); RBC Distribution Width SD 50.1 fl (35.1-43.9); Red Blood Count 3.66 M/mm3 (4.2-5.4); White Blood Count 14.5 K/mm3 (4.4-11.0)
[2020-04-11] MEDS: Oxytocin 30 units/NS 500 ml 30 UNITS/500 ML IV.SOLN IV (22:57)
[2020-04-11 23:09] VITALS: BP 111/73; PULSE 85
[2020-04-11 23:10] VITALS: PULSE 80; O2SAT 96
[2020-04-12] VITALS (111 sets, daily range): BP systolic 72–122; BP diastolic 38–73; PULSE 60–202; RESP 16; TEMP 36.5–37.2; O2SAT 82–100
[2020-04-12] MEDS: Lactated Ringers 500 ML 999 ML IV ×3 (01:06→03:52)
[2020-04-12] MEDS: fentaNYL-bupivacaine (epidural) 100 ML BAG EPIDURAL (02:33)
[2020-04-12] MEDS: Ondansetron 4 MG/2 ML Vial IV (03:35)
[2020-04-12] MEDS: 0.9% Saline Lock 10 ML Syringe IV ×2 (03:36→12:27)
[2020-04-12] MEDS: ePHEDrine Sulfate 50 MG/ML Ampul 10 MG IV (05:14)
[2020-04-12] MEDS: Lactated Ringers 1,000 ML 200 ML IV (06:32)
[2020-04-12] MEDS: Oxytocin 30 units/NS 500 ml 30 UNITS/500 ML IV.SOLN 334 UNITS IV (09:32)
[2020-04-12] MEDS: Acetaminophen 500 MG Tablet 1000 MG PO ×2 (10:10→18:20)
--- NOTE | 2020-04-12 10:33 | PCM.HPOB.BLA ---
- Problem List (1) Rupture of membranes with clear amniotic fluid Status: Acute (2) ASCUS of cervix with negative high risk HPV Status: Acute Comment: Pap in 2022 (3) Anxiety disorder affecting , antepartum Status: Acute Comment: Zoloft 25mg, encouraged counseling (4) GBS (group B Streptococcus carrier), +RV culture, currently Status: Acute (5) Infertility Status: Acute Comment: Clomid (6) Influenza vaccine administered Status: Acute Comment: 12/20/2019sc (7) Lab test negative for COVID-19 virus Status: Acute (8) Status: Acute Qualifiers: Comment: declines genetic, carrier and NTD. Anatomy normal (9) Supervision of high risk , antepartum Status: Acute Comment: PRR BELLA 04/15/2020 [facility]:Mary Ellen Spouse: Rj History and Physical Date of Admission: 04/12/20 Intake Vital Signs 04/09/20 Height 5 ft 7 in 04/09/20 Weight: 184 lb 6 oz 04/09/20 BMI 28.8 04/09/20 BP 120/82 H Intake Visit Reasons: 39 WK OB Attic Blower Required: No Is patient in pain?: No Allergies No Known Allergies Allergy (Verified 04/09/20 11:53) Medications prenat.vits,rachel,eut-bjej-wtqoa 1 tab PO DAILY 12/21/17 [History Confirmed 04/09/20] doxylamine succinate 25 mg tablet 25 mg PO QHS PRN 09/21/19 [History Confirmed 04/09/20] pyridoxine (vitamin B6) 25 mg tablet 25 mg PO DAILY 09/21/19 [History Confirmed 04/09/20] sertraline 25 mg tablet 25 mg PO DAILY 09/21/19 [History Confirmed 04/09/20] Last Menstral Period: 10/26/17 Zika: Zika virus screening: Negative : No PFSH PFSH Medical History Anxiety (Acute) History of hysterosalpingogram (Acute) Family History Grandfather Heart disease Unknown Breast cancer Cancer prostate Social History (Updated 04/09/20 @ 12:[address] Amira Nogueira MD) Smoking Status: Never smoker alcohol intake: current alcohol intake frequency: a few times a month details: pre-pegnancy substance use type: does not use caffeine: Yes what type of physical activity do you participate in: walking frequency: 3-4 times per week seatbelt use: always do you feel safe at home: Yes additional social history: CAB Rj- [employer] Pregancy History 2 Elective abortions Hx Para 1 Spontaneous abortions Hx # Term Pregnancies Ectopic pregnancies Hx # Pregnancies Multiple births # of living children 1 Past Pregnancies Del. Date Name GA/Weeks Outcome Route Bth Weight Infant Gen Labor Lgth Anesthesia Del Locatn Provider FOB 07/17/18 Mary Ellen 37 live - full term 6lbs 8oz Female 12 hours epidural [facility] Delivery Date: 07/17/18 PRoM Diogo,Maribell HPI 39 WK OB: Details: CHATO WISEMAN is a 30 year old who presents for routine OB visit. OB Visit BELLA Calculator Estimated Delivery Date Method Current WG Current Estimate 04/15/20 LMP (Certain) 39w 1d Other Estimates 04/14/20 Ultrasound #1 39w 2d Expected Delivery Route/Plan Labor Preferences- labor support person: Rj pain management options preferred: epidural cut cord/dad catch: yes : yes PP control planned: [] discussed possible routes of delivery and associated risks: discussed possible delivery modalities and possible indications for each including R/B/A of , VAVD, FAVD, and CS. questions answered. special requests: none Specific Issue/Plans flu vaccine: given tdap vaccine: 01/18 rhogam: NA LARC form signed: yes movement and labor precautions reviewed. Problem list reviewed and updated with the most current plan of care details and appropriate orders placed. Relevant counseling for the gestational age provided. Continue routine care and follow up unless otherwise noted in visit notes/problem list details Initial Weight: 144 lb Date EGA Weight BP Urine Prot Glucose FHR FuHt Pres Dilation Effaced St Visit Note 10/21/19 14w 5d 150 lb (+6 lb) 118/68 Negative Negative 150 SM- no vb lof cramping 11/21/19 19w 1d 154 lb (+10 lb) 116/62 Negative Negative 145 SM- no vb cramping, has US today. gender surprise. 12/20/19 23w 2d 156 lb 2 oz (+12 lb 2 oz) 108/62 Negative Negative 145 SM- no vb lof good fm no regular ctx 01/19/20 27w 4d 165 lb 4 oz (+21 lb 4 oz) 118/68 Negative Negative 145 28 GP - no LOF, VB, DFM, ctx. GTT done today. TDAP given. 02/06/20 30w 1d 169 lb (+25 lb) 98/64 Negative Negative 135 30 MH-No Vb, LOF. Good FM. 02/23/20 32w 4d 175 lb (+31 lb) 100/62 Negative Negative 140 33 SM- no vb lof good fm no regular ctx 03/07/20 34w 3d 180 lb (+36 lb) 102/80 Negative Negative 140 34 GP - no LOF, VB, DFM, ctx. Discussed routes of delivery. 03/22/20 36w 4d 180 lb (+36 lb) 132/78 Negative Negative 135 37 SM- no vb lof good fm no regular ctx gbs 03/28/20 37w 3d 181 lb (+37 lb) 117/79 Negative Negative 135 37 Sm- no vb lof good fm no regular ctx 04/05/20 38w 4d 182 lb (+38 lb) 120/82 Negative Negative 135 38 SM- no vb lof good fm no regular ctx 04/09/20 39w 1d 184 lb 6 oz (+40 lb 6 oz) 120/82 Negative Negative 140 39 Cephalic 3 60 -2 GP - no LOF, VB, DFM, regular ctx. Membranes swept today. Labor precautions reviewed. ACOG First Trimester First Trimester: Desire for , Alcohol, Tobacco Cessation, Illicit/Recreational Drug/Substance Use, Intimate Partner Violence, Barriers to care, Unstable Housing, Communication Barriers, Environmental/Work Hazards, Anticipated Course of Care, Toxoplasmosis Precations, Use of Any medications, Sexual activity, Exercise, Dental Care, Sauna/Hot tub use, Seat Belt use, Childbirth classes/Hospital facilities, , Travel, Indications for US and Screening for Aneuploidy Diagnostics Diagnostics Diagnostics Glucose 1 Hr 50 gm 104 mg/dL (70-140) 01/19/20 Hgb 11.3 g/dL (12.0-15.0) L 01/19/20 Hct 34.2 % (37-47) L 01/19/20 Details: HIV: Urine Culture: Sequential Screen: NIPT Screen: ROS Const Reports system reviewed and no additional complaints, except as docu Eyes Reports system reviewed and no additional complaints, except as docu ENT Reports system reviewed and no additional complaints, except as docu Card Reports system reviewed and no additional complaints, except as docu Resp Reports system reviewed and no additional complaints, except as docu GI Reports system reviewed and no additional complaints, except as docu Reports system reviewed and no additional complaints, except as docu, Denies abnormal vaginal bleeding, Denies painful urination, Denies pelvic pain, Denies vaginal discharge, Denies vaginal odor, Denies vaginal itching Musc Reports system reviewed and no additional complaints, except as docu Skin/Breast Reports system reviewed and no additional complaints, except as docu Neuro Yes system reviewed and no additional complaints, except as docu Psych Reports system reviewed and no additional complaints, except as docu Endo Reports system reviewed and no additional complaints, except as docu Exam Const General: cooperative, healthy appearing, comfortable, no acute distress, well developed, well groomed Nutritional Appearance: average body habitus, well nourished Orientation: alert, awake, oriented x3 HENMT Head: normal to inspection, normocephalic, atraumatic Eyes Pupils: PERRL, accommodation normal Resp Effort & Inspection: normal respiratory effort, able to speak in complete sentences, symmetric chest movement Cardio Rate: regular rate GI Palpation: soft, no guarding, no masses, nontender Skin General: no rashes or lesions noted, elasticity normal, turgor normal Neuro General: alert, awake, oriented x3 Cranial Nerves: CN's II-XI intact bilaterally, sense of smell intact, PERRL, accommodation normal, EOM intact bilaterally Speech: speech normal Gait: normal gait Psych Appearance: grossly normal, well kempt Mental Status: mental status grossly normal Mood: congruent mood Affect: normal affect Speech and Movement: speech and movement normal Attitude: cooperative Thought Process: normal Thought Content: normal Judgment: judgment good Results POC Urinalysis 2 Dip (Clinic) Office Urine Glucose Negative Last Edit by Maribell Lind on 04/09/20 12:01 Office Urine Protein Negative Last Edit by Maribell Lind on 04/09/20 12:01 Assessment & Plan Problems 1. Lab test negative for COVID-19 virus Z03.818 2. GBS (group B Streptococcus carrier), +RV culture, currently O99.820 3. Influenza vaccine administered Z23 12/20/2019sc 4. ASCUS of cervix with negative high risk HPV R87.610 Pap in 2022 5. 39 weeks gestation of Z3A.39 declines genetic, carrier and NTD. Anatomy normal 6. Anxiety disorder affecting , antepartum O99.340; F41.9 Zoloft 25mg, encouraged counseling 7. Infertility Clomid 8. Supervision of high risk , antepartum O09.90 PRR BELLA 04/15/2020 [facility]:Mary Ellen Spouse: Rj Patient presents IAL, plan expectant management for , pitocin if needed Pain management: plans epidural GBS positive plan IV PCN Management of any complications: none I have reviewed the [facility] and made any clinically relevant updates. UPDATE- I have seen the patient and performed any clinically relevant updates to the history and physical exam. Amira Nogueira MD
--- NOTE | 2020-04-12 10:35 | PCM.OPRPT ---
Problem List (1) Rupture of membranes with clear amniotic fluid Status: Acute (2) ASCUS of cervix with negative high risk HPV Status: Acute Comment: Pap in 2022 (3) Anxiety disorder affecting , antepartum Status: Acute Comment: Zoloft 25mg, encouraged counseling (4) GBS (group B Streptococcus carrier), +RV culture, currently Status: Acute (5) Infertility Status: Acute Comment: Clomid (6) Influenza vaccine administered Status: Acute Comment: 12/20/2019sc (7) Lab test negative for COVID-19 virus Status: Acute (8) Status: Acute Qualifiers: Comment: declines genetic, carrier and NTD. Anatomy normal (9) Supervision of high risk , antepartum Status: Acute Comment: PRR BELLA 04/15/2020 [place] PC:Mary Ellen Spouse: Rj Vaginal Delivery Maternal Presentation: Spontaneous Rupture of Membranes 30yo at 39 weeks gestation admitted for rupture of membranes. She was augmented with pitocin and made change to complete dilation Amniotic Membrane Rupture Type: Spontaneous at home Amniotic Fluid Description: Clear Final BELLA: 04/15/20 Gestational age: 39 Weeks and 4 Days Date of Procedure: 04/12/20 Pre-Operative Diagnosis: Term , spontaneous rupture of membranes Post-Operative Diagnosis: same Surgery/ Procedure Performed: Spontaneous Vaginal Delivery Type of Anesthesia: Epidural Description of Procedure: Patient began pushing and delivered the head in the BIANCA presentation. The head was delivered atraumatically and a loose nuchal cord ?1 was identified and easily reduced over the infant's head. The anterior and posterior shoulders delivered without complication followed by the rest of the infant and the infant was placed on the maternal abdomen. Delayed cord clamping was employed for approximately 60 seconds. Cord was clamped and cut and gentle traction was applied to the cord and the placenta delivered spontaneously immediately following it was noted to be intact with three-vessel cord. The perineum and vagina were inspected and a first degree perineal and a left labial laceration were noted and repaired in the standard fashion using 3-0 vicryl rapide suture. EBL was 300cc. Patient and infant tolerated delivery well. Presentation: Vertex, BIANCA Placental Delivery Description: Spontaneous Placenta Disposition: [facility] Cord Vessel Description: 3 Vessels Cord Entanglement: Around neck x 1, loose Estimated Blood Loss: 300 cc A gender: Female (1 minute): 9 (5 minute): 9 Episiotomy Description: None Laceration: Midline, Perineal Extension/lac, Vaginal Extension/lac, 1st degree Medications given after delivery: IV Pitocin Complications: None Multi Select Codes - Urinary/Genital Urinary/Genital CPT Codes: 98450 Vaginal Delivery [facility]
--- NOTE | 2020-04-12 10:40 | DCINST_ITS ---
Discharge Diet: No Restrictions Discharge Activity: Return to Normal Activity, May not drive while taking narcotic pain medications., May Shower May resume sexual activity in: 4-6 weeks Additional Activity Instructions:: Nothing in the vagina for 4-6 weeks. You may return to work/school in 6 weeks. Call your doctor if your incision/area has: Continuous Slow Oozing, Sudden Increased Bleeding, Increased Pain/ Swelling, Increased Redness, Foul Smelling Discharge Additional Instructions: If you experience any of the following, contact your healthcare provider. * Bleeding that soaks a pad every hour for 2 hours * Fever 100.4 or higher * Unrelieved incision or abdominal pain * Swelling, redness, discharge or bleeding from your incision or episiotomy site * Your incision begins to separate * Problems urinating (including inability to urinate or burning while urinating). * Visual changes * Severe headache * Flu-like symptoms * Pain or redness in one of both of your breasts * Pain, warmth, tenderness or swelling in your legs, especially the calf area * Frequent nausea and vomiting * Symptoms of depression or anxiety If you experience any of the following, call 911 or go to the nearest Emergency Room. * Chest pain * Problems breathing * Seizure activity * Partial or complete paralysis of a body part, slurred speech, weakness or drooping of the face, or a sudden inability to walk or hold your balance Allergies/Adverse Reactions: Allergies No Known Allergies Allergy (Verified 04/11/20 21:31) Medications to take at Discharge prenat.vits,rachel,[id number] 1 tab PO DAILY 12/21/17 doxylamine succinate 25 mg tablet 25 mg PO QHS PRN 09/21/19 pyridoxine (vitamin B6) 25 mg tablet 25 mg PO DAILY 09/21/19 sertraline 25 mg tablet 25 mg PO DAILY 09/21/19 When: Call to make an appointment with your doctor in 6 weeks. If you had elevated Blood Pressure or 4th degree laceration you will need to be seen in 2 weeks. Primary Care Physician: Salinas Carlson MD [Primary Care Provider] - Test Results: Test results from this visit will be discussed in further detail at your follow- up appointment, if applicable.
[2020-04-12] MEDS: Naproxen 250 MG Tablet 500 MG PO (16:09)
[2020-04-13] MEDS: Naproxen 250 MG Tablet 500 MG PO ×2 (00:16→11:23)
[2020-04-13 00:23] VITALS: BP 117/43; PULSE 68; RESP 16; TEMP 36.4; O2SAT 98
[2020-04-13] MEDS: Acetaminophen 500 MG Tablet 1000 MG PO (04:01)
[2020-04-13 04:03] VITALS: BP 109/59; PULSE 72; RESP 16; TEMP 36.6; O2SAT 100
[2020-04-13 08:30] VITALS: BP 107/59; PULSE 83; RESP 16; TEMP 36.6
--- NOTE | 2020-04-13 09:50 | PN.OBGYN_ITS ---
Patient Problems: Active and Suspected Problems (Last Reviewed 04/09/20 @ 11:53 by Maribell Lind) ASCUS of cervix with negative high risk HPV (Acute) Pap in 2022 Subjective: Patient doing well without complaints. Tolerating PO. Ambulating and voiding without difficulty. Breast feeding well. Denies chest pain, shortness of car ath, calf pain/swelling, fevers, chills, lightheadedness. - Physical Exam Vitals/I&O's: Vital Signs Temp Pulse Resp BP Pulse Ox 97.9 F 83 16 107/59 L 100 04/13/20 08:30 04/13/20 08:30 04/13/20 08:30 04/13/20 08:30 04/13/20 04:03 Oxygen Delivery Method Room Air Weight: 186 lb Body Mass Index (BMI) 29.1 Intake and Output for Last 24 Hours 04/11/20 04/12/20 04/13/20 23:59 23:59 23:59 Intake Total 37.5 / 37.5 4296.72 / 4296.72 Output Total 1750 / 1750 Balance 37.5 / 37.5 2546.72 / 2546.72 General: Alert, Oriented x3, Cooperative, No apparent distress, Well developed, Well nourished HEENT: Atraumatic, PERRLA, EOMI, Normocephalic Neck: Supple, No JVD Lungs: Normal air movement Cardiovascular: Regular rate Abdomen: Soft, Non Tender, Non-Distended, - - fundus firm Extremities: No edema, No Calf Tenderness Neurological: Cranial nerves II-XII grossly intact, Neuro grossly intact Psych/Mental Status: Normal Affect, Appropriate Current Medications Acetaminophen (Acetaminophen 500 Mg Tablet) 1,000 mg PO Q8H PRN PRN PRN Reason: Pain Score 1-3 Last Admin: 04/13/20 04:01 Dose: 1,000 mg Documented by: Bisacodyl (Bisacodyl 10 Mg Suppository) 10 mg RECTAL UD PRN PRN Reason: If no BM Dibucaine (Dibucaine 30 Gm Tube) 1 applic TOPICAL TID PRN PRN; Protocol PRN Reason: Discomfort Hydrocortisone (Hydrocortisone 2.5% Crm) 1 applic TOPICAL TID PRN PRN; Protocol PRN Reason: Discomfort Methylergonovine Maleate (Methylergonovine 0.2 Mg/Ml Ampul) 0.2 mg IM X1 PRN PRN Reason: Excess bleeding/uterine atony Naproxen (Naproxen 250 Mg Tablet) 500 mg PO Q8H PRN PRN PRN Reason: Pain Score 1-3 Last Admin: 04/13/20 00:16 Dose: 500 mg Documented by: Ondansetron HCl (Ondansetron 4 Mg/2 Ml Vial) 4 mg IV Q4H PRN PRN PRN Reason: Nausea Oxycodone HCl (Oxycodone 5 Mg Tablet) 5 - 10 mg PO Q4H PRN PRN PRN Reason: Pain Score 4-10 Senna/Docusate Sodium (Senna/Docusate Sodium 1 Tablet) 1 - 2 tablet PO DAILY PRN PRN PRN Reason: Constipation Simethicone (Simethicone 80 Mg Tablet) 80 mg PO PCHS PRN PRN Reason: Indigestion/Stomach pain Sodium Chloride (0.9% Saline Lock 10 Ml Syringe) 5 - 15 ml IV UD PRN PRN Reason: SALINE FLUSH Last Admin: 04/12/20 12:27 Dose: 10 ml Documented by: Medical Necessity - Tobacco Use Smoking Status: Never smoker Assessment/Plan All Active Problems (Last Reviewed 04/09/20 @ 11:53 by Maribell Lind) ASCUS of cervix with negative high risk HPV (Acute) Anxiety disorder affecting , antepartum (Resolved) GBS (group B Streptococcus carrier), +RV culture, currently (Resolved) Infertility (Resolved) Influenza vaccine administered (Resolved) Lab test negative for COVID-19 virus (Resolved) (Resolved) Rupture of membranes with clear amniotic fluid (Resolved) Supervision of high risk , antepartum (Resolved) Elevated prolactin level (Resolved) GBS (group B Streptococcus carrier), +RV culture, currently (Resolved) Labia minora agglutination (Resolved) PROM (premature rupture of membranes) (Resolved) (Resolved) Secondary amenorrhea (Resolved) Supervision of normal (Resolved) s/p PPD # 1 1. routine post delivery care 2. breast feeding- support given 3. rh positive 4. rubella immune
[2020-04-13] MEDS: Senna/Docusate Sodium 1 Tablet PO (11:23)
== END 2020-04-13 12:30 | disposition home or self-care (01) | DRG 807 ==
LOC: WPOUT 22:24 → WP 22:24
PROVIDERS: Admitting Provider Obstetrics & Gynecology; PCP Family Medicine; Visit Provider Obstetrics & Gynecology
DX: O42.92 Full-term premature rupture of membranes, unspecified as to length of time between rupture and onset of labor (principal); Z37.0 Single live birth; O69.81X0 Labor and delivery complicated by cord around neck, without compression, not applicable or unspecified; O99.824 Streptococcus B carrier state complicating childbirth; O99.344 Other mental disorders complicating childbirth; F41.9 Anxiety disorder, unspecified; O70.0 First degree perineal laceration during delivery; Z3A.39 39 weeks gestation of pregnancy
CPT/HCPCS: 59025; 59050; 84112; 85025; 86850; 86900; 86901; 99218; J7120; A4216; G0378; J2405

== ENCOUNTER → 2020-04-15 19:55 | Outpatient (CLI) | payer OTHER, SELFPAY ==
[2020-04-11 21:27] VITALS: BMI 29.1
== END ==
PROVIDERS: PCP Family Medicine; Referring Provider Obstetrics & Gynecology; Visit Provider Obstetrics & Gynecology
DX: Z39.1 Encounter for care and examination of lactating mother (principal)
CPT/HCPCS: 96158

== ENCOUNTER 2021-05-09 15:45 | Outpatient (CLI) | payer OTHER, SELFPAY ==
[2021-05-09 16:17] LABS: Absolute Lymphocyte Count 2.68 X10^3/uL (0.83-4.51); Absolute Neutrophil Count 6.1 X10^3/uL (2.0-7.7); Basophil# 0.08 X10^3/uL; Basophil% 0.8 % (0-1); Eosinophil# 0.15 X10^3/uL; Eosinophils% 1.5 % (0-5); Hematocrit 38.6 % (37-47); Hemoglobin 13.2 g/dL (12.0-15.0); Lymphocyte # 2.68 X10^3/ul (0.83-4.51); Lymphocyte % 26.9 % (19-41); Mean Corp Hgb Conc 34.2 g/dL (32-36); Mean Corpuscular Hgb 31.7 pg (27.0-32.0); Mean Corpuscular Volume 92.8 fL (81-99); Mean Platelet Vol. 9.9 fl (6.2-12.0); Monocyte# 0.86 X10^3/uL; Monocyte% 8.6 % (0-10); NRBC Flagged by Analyzer 0 % (0-5); Neutrophil # 6.14 X10^3/uL (2.7-7.7); Neutrophil % 61.8 % (47-70); Platelet Count 313 K/mm3 (150-450); RBC Distribution Width CV 13.2 % (11.6-14.6); RBC Distribution Width SD 44.6 fl (35.1-43.9); Red Blood Count 4.16 M/mm3 (4.2-5.4)
[2021-05-09 16:49] LABS: Amphetamine Urine VISTA NEGATIVE (<1000 ng/mL); Barbiturate Urine VISTA NEGATIVE (< 200 ng/mL); Benzodiazepine Urine VISTA NEGATIVE (< 200 ng/mL); Cocaine Urine VISTA NEGATIVE (< 300 ng/mL); Ecstacy Urine VISTA NEGATIVE (< 500 ng/mL); Methadone Urine VISTA NEGATIVE (< 300 ng/mL); PCP Urine VISTA NEGATIVE (< 25 ng/mL); THC Urine VISTA NEGATIVE (< 50 ng/mL); Vista UDS pH Range 5
[2021-05-09 17:35] LABS: hCG Titer Quant., Serum 5038 mIU/mL (1-3)
[2021-05-10 09:54] LABS: HIV - WCH Non-Reactive (Nonreactive); Hepatitis B Surface Antigen Non-Reactive (Nonreactive); Hepatitis C Antibody Non-Reactive (Nonreactive); Rubella IgG Reactive (Nonreactive); Syphilis Antibodies Non-reactive
[2021-05-13 18:08] LABS: Chlamydia By Nucleic Acid AMP Negative (Negative)
[2021-05-14 12:44] LABS: Gonococcus By Nucleic Acid AMP Negative (Negative)
[2021-05-14 16:55] LABS: HCG BETA-SUBUNIT QUANT. 5316 mIU/mL (.)
== END 2021-05-09 23:59 | disposition short-term general hospital (02) ==
PROVIDERS: PCP Family Medicine; Visit Provider Obstetrics & Gynecology
DX: Z34.80 Encounter for supervision of other normal pregnancy, unspecified trimester (principal)
CPT/HCPCS: 36415; 80307; 84702; 85025; 86703; 86762; 86780; 86803; 86850; 86900; 86901; 87086; 87088; 87340; 87491; 87591

== ENCOUNTER 2021-05-11 21:20 | Outpatient (CLI) | payer OTHER, SELFPAY ==
[2021-05-12 01:27] LABS: hCG Titer Quant., Serum 7817 mIU/mL (1-3)
== END 2021-05-11 23:59 | disposition short-term general hospital (02) ==
PROVIDERS: Obstetrics & Gynecology; PCP Family Medicine; Visit Provider Obstetrics & Gynecology
DX: O20.0 Threatened abortion (principal)
CPT/HCPCS: 36415; 84702

== ENCOUNTER 2021-07-05 12:16 | Outpatient (CLI) | payer OTHER, SELFPAY ==
[2021-07-05 13:28] LABS: NATERA MAILED SPECIMEN
== END 2021-07-05 23:59 | disposition home or self-care (01) ==
LOC: LAB 12:22
PROVIDERS: PCP Family Medicine; Visit Provider Obstetrics & Gynecology
DX: Z34.81 Encounter for supervision of other normal pregnancy, first trimester (principal)
CPT/HCPCS: 36415

== ENCOUNTER → 2021-10-09 | Outpatient (CLI) | payer OTHER, SELFPAY ==
[2021-10-09 09:14] LABS: Glucose Challenge Gest 1H 50g 128 mg/dL (70-140)
== END | disposition home or self-care (01) ==
LOC: PAVLAB 07:53
PROVIDERS: PCP Family Medicine; Referring Provider Obstetrics & Gynecology; Visit Provider Obstetrics & Gynecology
DX: Z13.1 Encounter for screening for diabetes mellitus (principal)
CPT/HCPCS: 36415; 82950

== ENCOUNTER → 2021-11-11 | Outpatient (CLI) | payer OTHER, SELFPAY ==
--- NOTE | 2021-11-11 08:08 | US_ITS ---
STUDY: SECOND AND THIRD TRIMESTER OBSTETRICAL ULTRASOUND - LIMITED REASON FOR EXAM: Female, 31 years old. growth -- 32 weeks PRIOR ULTRASOUND: None. TECHNIQUE: Transabdominal TECHNICAL QUALITY: Adequate. FINDINGS: There is a single intrauterine fetus. The fetus is in a cephalic presentation. There is demonstrated cardiac activity with a heart rate of 129 bpm. There is a normal amniotic fluid volume. The largest amniotic fluid pocket measures 6.4 cm. The amniotic fluid index (WILLY) is 11 cm. The placenta is 33 There are Grade 1 placental changes. The cervix measures cm in length: 3.9. BIOMETRY: BPD: 80 mm: 32 weeks, 0 days HC: 298 mm: 33 weeks, 0 days AC: 301 mm: 34 weeks, 4 days FL: 67 mm: 34 weeks, 3 days CI: 77 FL/AC: 22 FL/BPD: 84 HC/AC: .98 age by current US: 33 weeks, 4 days. BELLA by current US: 9.15.22. Estimated weight: 2334 grams, +/- 341 grams, 94 %. Age by LMP: 32 weeks, 0 days. BELLA by LMP: 9..22. US/OB Limited With Biometrics IMPRESSION: There is a single live intrauterine with a heart rate of 129 bpm. age by current US: 33 weeks, 4 days. BELLA by current US: 9.15.22. Estimated weight: 2334 grams, +/- 341 grams, 94 %. EFW is greater than 75%. Large for gestational age (LGA) should be considered. Electronically Signed: Osei Nunez MD at 20:08 EDT ,
== END | disposition home or self-care (01) ==
LOC: US 08:08
PROVIDERS: PCP Family Medicine; Visit Provider Nurse Practitioner Women's Health
DX: O43.193 Other malformation of placenta, third trimester (principal); Z3A.33 33 weeks gestation of pregnancy
CPT/HCPCS: 76816

== ENCOUNTER → 2021-12-09 | Outpatient (CLI) | payer OTHER, SELFPAY ==
--- NOTE | 2021-12-09 08:06 | US_ITS ---
STUDY: SECOND AND THIRD TRIMESTER OBSTETRICAL ULTRASOUND - LIMITED REASON FOR EXAM: Female, 31 years old growth -- 36 weeks LMP: 04/01/2021 PRIOR ULTRASOUND: None. TECHNIQUE: Standard TECHNICAL QUALITY: Adequate. FINDINGS: There is a single intrauterine fetus. The fetus is in a cephalic presentation. There is demonstrated cardiac activity with a heart rate of 129 bpm. There is a normal amniotic fluid volume. The largest amniotic fluid pocket measures 6.4 cm. The amniotic fluid index (WILLY) is 11.0 cm. The placenta is anterior not low lying There are Grade 0 placental changes. The cervix measures 3.9 cm in length. BIOMETRY: BPD: 7.96: 8 weeks, 0 days HC: 29.8: 30 weeks, 0 days AC: 30.6: 30 weeks, 4 days FL: 6.6: 30 weeks, 3 days Age by LMP: 30 weeks, 0 days. BELLA by LMP: 01/06/2022. age by prior US. Prior ultrasound is not available age by current US: 30 weeks, 4 days. BELLA by current US: 12/26/2021. Estimated weight: 3170 grams, +/- 476 grams, 33.09 percentile. US/OB Limited With Biometrics IMPRESSION: Single viable intrauterine gestation. Mean gestational age 33 weeks 4 days based upon concordant ultrasound parameters. Vertex presentation. Electronically Signed: Matt Mayorga MD, OSMAN at 10:06 EDT ,
== END | disposition home or self-care (01) ==
LOC: US 08:05
PROVIDERS: PCP Family Medicine; Referring Provider Nurse Practitioner Women's Health; Visit Provider Nurse Practitioner Women's Health
DX: O43.193 Other malformation of placenta, third trimester (principal); Z3A.36 36 weeks gestation of pregnancy
CPT/HCPCS: 76816

== ENCOUNTER → 2021-12-12 | Outpatient (CLI) | payer OTHER, SELFPAY | END | disposition home or self-care (01) | LOC: LABSPEC 12-13 07:23 | PROVIDERS: PCP Family Medicine; Visit Provider Obstetrics & Gynecology | DX: Z34.93 Encounter for supervision of normal pregnancy, unspecified, third trimester (principal) | CPT/HCPCS: 87077; 87081; 87186 ==

== ENCOUNTER 2021-12-24 16:45 | Inpatient (IN) | payer OTHER, SELFPAY ==
[2021-12-24] VITALS (37 sets, daily range): BP systolic 94–145; BP diastolic 56–74; PULSE 64–94; TEMP 36.7; O2SAT 80–100; BMI 25.9
[2021-12-24 16:42] LABS: ROM Internal Control Test YES-OK TO RESULT pt. (Internal QC); ROM Patient Test POSITIVE (Negative)
[2021-12-24] MEDS: Lactated Ringers 1,000 ML 50 ML IV (17:05)
[2021-12-24] MEDS: LACTATED RINGERS 500 ML 999 ML IV (17:06)
[2021-12-24 17:19] LABS: Absolute Lymphocyte Count 2.33 X10^3/uL (0.83-4.51); Absolute Neutrophil Count 10.7 X10^3/uL (2.0-7.7); Basophil# 0.06 X10^3/uL; Basophil% 0.4 % (0-1); Eosinophil# 0.06 X10^3/uL; Eosinophils% 0.4 % (0-5); Hematocrit 40.6 % (37-47); Hemoglobin 13.5 g/dL (12.0-15.0); Lymphocyte # 2.33 X10^3/ul (0.83-4.51); Lymphocyte % 16.5 % (19-41); Mean Corp Hgb Conc 33.3 g/dL (32-36); Mean Corpuscular Hgb 32.8 pg (27.0-32.0); Mean Corpuscular Volume 98.5 fL (81-99); Mean Platelet Vol. 9.9 fl (6.2-12.0); Monocyte% 7.1 % (0-10); NRBC Flagged by Analyzer 0 % (0-5); Neutrophil # 10.65 X10^3/uL (2.7-7.7); Neutrophil % 75.2 % (47-70); Platelet Count 254 K/mm3 (150-450); RBC Distribution Width CV 13.6 % (11.6-14.6); RBC Distribution Width SD 49.6 fl (35.1-43.9); Red Blood Count 4.12 M/mm3 (4.2-5.4); White Blood Count 14.2 K/mm3 (4.4-11.0)
[2021-12-24] MEDS: Ondansetron 4 MG/2 ML Vial IV (17:29)
--- NOTE | 2021-12-24 17:29 | HP.PCM.OB_ITS ---
HPI - General General Date of Admission: 12/24/21 HPI Narrative CHATO WISEMAN, is a 31 y/o @ 38 weeks 1 day who presents to L&D with rupture of membranes and contractions. SHe has a h/o 2 prior vaginal births. she is gbs positive Maternal Data Information BELLA Calculator Estimated Delivery Date Method Current WG Current Estimate 01/06/22 Ultrasound #1 38w 1d Other Estimates 12/08/21 LMP (Uncertain) 42w 2d 01/06/22 Ultrasound #2 38w 1d [facility] Medical History (Updated 12/23/21 @ 08:10 by Maribell Lind) Anxiety History of hysterosalpingogram Home Medications prenat.vits,rachel,[id number] ( Vitamin tablet) 1 tab PO DAILY pr egnancy 12/21/17 [History Last Taken 12/21/21] sertraline 50 mg tablet 50 mg PO DAILY 05/07/21 [History Last Taken 12/24/21 07:00] fexofenadine 180 mg tablet 180 mg PO DAILY 12/24/21 [History Last Taken 12/24/21 07:00] Allergy/AdvReac Type Severity Reaction Status Date / Time No Known Allergies Allergy Verified 12/23/21 08:10 Family History Grandfather Heart disease Grandmother Breast cancer Social History adopted: No household members: spouse and children number of children: 2 current occupational status: employed current occupation: [employer] pets and animals: Yes pets and animals: dog(s) Smoking Status: Never smoker alcohol intake: current alcohol intake frequency: a few times a month details: pre- substance use type: does not use caffeine: Yes what type of physical activity do you participate in: walking frequency: 3-4 times per week seatbelt use: always do you feel safe at home: Yes additional social history: CAB Rj- [employer] History 3 Elective abortions Hx Para 2 Spontaneous abortions Hx # Term Pregnancies Ectopic pregnancies Hx # Pregnancies Multiple births # of living children 2 Past Pregnancies Del. Date Name GA/Weeks Outcome Route Bth Weight Infant Gen Labor Lgth Anesthesia Del Locatn Provider FOB 07/17/18 [place] 37 live - full term 6lbs 8oz Female 12 h ours epidural [facility] EMERITA 04/12/20 Maria L 40 live - full term Female [facility] [place] Delivery Date: 07/17/18 Last Updated by: Maribell Lind PRoM Delivery Date: 04/12/20 Last Updated by: Kathleen Mccall ROM Visit Details Expected Delivery Route/Plan Labor Preferences- CB/BF classes: no labor support person: Rj labor intervention preferences: [] pain management options preferred: epidural cut cord/dad catch: yes : yes PP control planned: discussed/progesterone only pill discussed possible routes of delivery and associated risks: [] special requests: [] Plans Covid status: discussed Flu vaccine: discussed Tdap vaccine: given Rhogam: na LARC form signed: yes movement and labor precautions reviewed. Problem list reviewed and updated with the most current plan of care details and appropriate orders placed. Relevant counseling for the gestational age provided. Continue routine care and follow up unless otherwise noted in visit notes/problem list details OB Flowsheet Initial Weight: Not Recorded Date -?-?-?-?-?-?-?-?-?-?-?-?- EGA Weight BP Urine Prot -?-?-?-?-?-?-?-?-?-?-?-?- Glucose FHR FuHt Pres Dilation -?-?-?-?-?-?-?-?-?-?-?-?- Effaced St Visit Note 05/09/21 -?-?-?-?-?-?-?-?-?-?-?-?- 5w 3d 145 lb 8 oz 132/88 -?-?-?-?-?-?-?-?-?-?-?-?- -?-?-?-?-?-?-?-?-?-?-?-?- JV- ultrasound s hows a gestational sac measuring 6 weeks 4 days. She states that she does not feel . her menses are irregular however. plan to order quant levels now and have patient return to office next thursday/thursday for repeat ultrasound and review results. 05/14/21 -?-?-?-?-?-?-?-?-?-?-?-?- 6w 1d 148 lb 4 oz 134/92 Nega tive -?-?-?-?-?-?-?-?-?-?-?-?- Negative 109 -?-?-?-?-?-?-?-?-?-?-?-?- JV- quant went u p from 5000 to 7000 and today there is a 6 w1d pole with heart tones 109. Plan to return in one week for repeat ultrasoumd 05/24/21 -?-?-?-?-?-?-?-?-?-?-?-?- 7w 4d Negative -?-?-?-?-?-?-?-?-?-?-?-?- Negative 151 -?-?-?-?-?-?-?-?-?-?-?-?- JV- CRL consiste nt with 7 weeks 3 days BELLA 01/06/2022. live iup confirmed and patient is happy about this. She requests NIPT testing . 06/19/21 -?-?-?-?-?-?-?-?-?-?-?-?- 11w 2d 147 lb 4 oz 130/80 Nega tive -?-?-?-?-?-?-?-?-?-?-?-?- Negative 168 -?-?-?-?-?-?-?-?-?-?-?-?- JV- CRL consiste nt with 11 weeks. no complaints other than 07/19/21 -?-?-?-?-?-?-?-?-?-?-?-?- 15w 4d 151 lb 118/80 Negative -?-?-?-?-?-?-?-?-?-?-?-?- Negative 150 -?-?-?-?-?-?-?-?-?-?-?-?- SM- no vb lof cr amping. 08/15/21 -?-?-?-?-?-?-?-?-?-?-?-?- 19w 3d 153 lb 122/77 Negative -?-?-?-?-?-?-?-?-?-?-?-?- Negative 140 -?-?-?-?-?-?-?-?-?-?-?-?- SM- no vb lof cr amping. 09/12/21 -?-?-?-?-?-?-?-?-?-?-?-?- 23w 3d 161 lb 114/70 Negative -?-?-?-?-?-?-?-?-?-?-?-?- Negative 140 -?-?-?-?-?-?-?-?-?-?-?-?- SM- no vb crampi ng 10/09/21 -?-?-?-?-?-?-?-?-?-?-?-?- 27w 2d 160 lb 6 oz 100/74 Nega tive -?-?-?-?-?-?-?-?-?-?-?-?- Negative 135 27 -?-?-?-?-?-?-?-?-?-?-?-?- JV- glucose test done today. has follow up us of placenta next week. will call with results. 10/22/21 -?-?-?-?-?-?-?-?-?-?-?-?- 29w 1d 163 lb 120/72 Negative -?-?-?-?-?-?-?-?-?-?-?-?- Negative 150 29 -?-?-?-?-?-?-?-?-?-?-?-?- MH-No VB, LOF. G ood FM. Tdap, larc 11/18/21 -?-?-?-?-?-?-?-?-?-?-?-?- 33w 0d 165 lb 4 oz 112/70 Nega tive -?-?-?-?-?-?-?-?-?-?-?-?- Negative 135 35 -?-?-?-?-?-?-?-?-?-?-?-?- SM- no vb lof go od fm no regualr ctx discussed EFW possible IOL 39 if LGA and favorable suggs score 12/04/21 -?-?-?-?-?-?-?-?-?-?-?-?- 35w 2d 167 lb 110/88 Negative -?-?-?-?-?-?-?-?-?-?-?-?- Negative 130 38 -?-?--?-?-?-?-?-?-?-?-?-?- JV- agree with p zhao above. growth scan ordered for thursday next week. No lof, vaginal bleeding, or dec fm. 12/12/21 -?-?-?-?-?-?-?-?-?-?-?-?- 36w 3d 165 lb 118/84 -?-?-?-?-?-?-?-?-?-?-?-?- 130 39 Cephalic 1.5 -?-?-?-?-?-?-?-?-?-?-?-?- 60 -2 SM- no vb lof good fm no regular ctx 12/18/21 -?-?-?-?-?-?-?-?-?-?-?-?- 37w 2d 167 lb 6 oz 124/78 Nega tive -?-?-?-?-?-?-?-?-?-?-?-?- Negative 143 37 Cephalic 2 -?-?-?-?-?-?-?-?-?-?-?-?- 60 -2 JV- no lof , vaginal bleeding, or dec fm. encouraged otc hemorrhoid relief. 12/23/21 -?-?-?-?-?-?-?-?-?-?-?-?- 38w 0d 166 lb 115/75 Negative -?-?-?-?-?--?-?-?-?-?-?-?- Negative 140 38 Cephalic 3 -?-?-?-?-?-?-?-?-?-?-?-?- 60 -2 SM- no vb lof good fm n oregular ctx ROS Constitutional Constitutional: Denies change in weight, fatigue, fever(s), headache(s), poor appetite or weakness Eyes Eyes: Denies blurry vision, change in vision, seeing flashes or spots in vision ENT HEENT: Denies dizziness, headache(s), loss taste/smell or sore throat Cardiovascular Cardiovascular: Denies chest pain, dizziness, dyspnea, irregular heart rhythm, leg edema, palpitations, rapid heart rate or vomiting Respiratory/Chest Respiratory/Chest: Denies chest tightness, cough, dyspnea or breast pain Gastrointestinal Gastrointestinal: Denies abdominal pain, anorexia, constipation, cramping, diarrhea, hemorrhoids, vomiting or weight changes Genitourinary Genitourinary: Denies dysuria, flank pain, genital lesions, genital pain, urinary frequency or urinary urgency Musculoskeletal Musculoskeletal: Denies back pain, difficulty walking, joint pain, limited range of motion, muscle cramps or numbness Integumentary Integumentary: Denies lesions or unusual bruising Neurologic Neurologic: Denies abnormal movements, abnormal speech, dizziness, numbness, seizure-like activity or syncope Psychiatric Psychiatric: Denies anxiety, behavioral changes, change in appetite, change in libido, cognitive impairment, confusion, depression, difficulty concentrating, hallucinations or suicidal thoughts Endocrine Endocrinology: Denies excessive sweating, polydipsia or polyuria Hematologic/Lymphatic Hematologic/Lymphatic: Denies easy bleeding, easy bruising or lymphadenopathy Allergic/Immunologic Allergic/Immunologic: Denies itchy eyes, lip swelling, seasonal rhinorrhea, rhinitis, throat swelling, tongue swelling, eczemia, wheezing or asthma Vital Signs Vital Signs Vital Signs: 12/24/21 16:24 12/24/21 16:24 12/24/21 16:23 Temperature Temperature Source Temporal Pulse Rate 73 Blood Pressure 115/74 BP Systolic 115 BP Diastolic 74 Pulse Ox 12/24/21 16:23 12/24/21 16:26 12/24/21 16:26 Temperature 98.1 F Temperature Source Pulse Rate 69 Blood Pressure BP Systolic BP Diastolic Pulse Ox 99 Weight Weight: 165 lb 5.547 oz Body Mass Index (BMI) 25.9 Physical Exam Const alert, oriented x3, no apparent distress and healthy appearing General Appearance: cooperative; Negative for anxious HEENT normocephalic Face and Sinus: normal facial exam Eyes EOMs intact bilaterally and no scleral icterus General Eye: normal appearance of both eyes Neck full ROM and supple Lymph Lymphatic: no lymphadenopathy noted Chest Chest: abnormal inspection of the chest Resp normal respiratory effort Effort and Inspection: able to speak in complete sentences Cardio regular rate GI soft to palpation and non-tender Inspection: gravid Palpation: soft; Negative for tender external exam normal Amniotic Fluid: ROM+plus positive + Back/Spine no CVA tenderness Extremity normal to inspection, full ROM and no clubbing, cyanosis or edema General Extremity: Negative for calf tenderness or edema Skin Lesions: no lesions Rashes: no rashes Psych mental status grossly normal Labs Labs Labs: Blood Type O POSITIVE Antibody Screen NEGATIVE Hct 40.6 % (37-47) Hgb 13.5 g/dL (12.0-15.0) Pap Smear Negative Obstetrics US Syphilis Total Ab Non-reactive Rubella IgG Antibody Reactive (Nonreactive) Hep Bs Antigen Non-Reactive (Nonreactive) Chlamydia DNA ([place]) Negative (Negative) Neisseria gonorrhoeae DNA ([facility]) Negative (Negative) HIV 1&2 Antibody Non-Reactive (Nonreactive) Glucose 1 Hr 50 gm 128 mg/dL (70-140) Rhogam given: No Miscellaneous Test Assessment & Plan (1) Positive GBS test: COMMENT: NKDA treat with PCN in labor (2) Marginal insertion of umbilical cord affecting management of mother in second trimester: COMMENT: fu growth us 28 wk:89%. rpt 32 and 36 wk, 7/7 nl growth, 8/29 nl growth (3) : QUALIFIERS: Weeks of gestation: 38 weeks Qualified Code(s): Z3A.38 - 38 weeks gestation of COMMENT: Previous negative carrier. Had NIPT with 1st, declined w 2nd. NIPT low risk. Anatomy US normal (4) Supervision of other normal : COMMENT: PRR BELLA 01/06/22 [place] PC:Maria L Hyde. Spouse:Rj (5) Anxiety disorder affecting , antepartum: COMMENT: Zoloft 50mg, encouraged counseling' stable (6) ASCUS of cervix with negative high risk HPV: COMMENT: Pap in 2022 PLAN: Plan Patient presents IAL, plan expectant management for , pitocin/AROM PRN if needed. Pain management: plans epidural. GBS positive plan IV PCN. Management of any complications: none I have reviewed the [facility] and made any clinically relevant updates.
[2021-12-24] MEDS: fentaNYL-bupivacaine (epidural) 100 ML BAG EPIDURAL (17:55)
[2021-12-24] MEDS: Oxytocin 30 units/NS 500 ml 30 UNITS/500 ML IV.SOLN 334 UNITS IV (20:30)
--- NOTE | 2021-12-24 20:54 | OP.PCM_ITS ---
Assessment & Plan (1) Anxiety disorder affecting , antepartum: COMMENT: Zoloft 50mg, encouraged counseling' stable (2) ASCUS of cervix with negative high risk HPV: COMMENT: Pap in 2022 (3) Supervision of other normal : COMMENT: PRR BELLA 01/06/22 surprise PC:Maria L Hyde. Spouse:Rj (4) : QUALIFIERS: Weeks of gestation: 38 weeks Qualified Code(s): Z3A.38 - 38 weeks gestation of COMMENT: Previous negative carrier. Had NIPT with 1st, declined w 2nd. NIPT low risk. Anatomy US normal (5) Marginal insertion of umbilical cord affecting management of mother in second trimester: COMMENT: fu growth us 28 wk:89%. rpt 32 and 36 wk, 7/7 nl growth, 8/29 nl growth (6) Positive GBS test: COMMENT: NKDA treat with PCN in labor Maternal Data Information BELLA Calculator Estimated Delivery Date Method Current WG Current Estimate 01/06/22 Ultrasound #1 38w 1d Other Estimates 12/08/21 LMP (Uncertain) 42w 2d 01/06/22 Ultrasound #2 38w 1d Final BELLA: 01/06/22 Final BELLA Source: US <20 weeks Gestational age: 38 weeks 0 days Vaginal Delivery Maternal Presentation Maternal Presentation: Active Labor and Spontaneous Rupture of Membranes Operative Information Date of Procedure: 12/24/21 Pre-Operative Diagnosis: @ 38 weeks 0 days, srom and active labor Post-Operative Diagnosis: @ 38 weeks 0 days, srom and active labor Type of Anesthesia: Epidural Estimated Blood Loss: 300cc Findings Description of Procedure: Patient began pushing and delivered the head in the GRAYSON presentation. The head was delivered atraumatically and a loose nuchal cord ?1 was identified and easily reduced over the 's head x 2 . The anterior and posterior shoulders delivered without complication followed by the rest of the and the infant was placed on the maternal abdomen. Delayed cord clamping was empl oyed for approximately 60 seconds. Cord was clamped and cut and gentle traction was applied to the cord and the placenta delivered spontaneously immediately following it was noted to be intact with three-vessel cord. The perineum and vagina were inspected and noted to have no laceration. EBL was 300cc. Patient and tolerated delivery well. Presentation: Vertex Amniotic Membrane Rupture Type: Spontaneous Amniotic Fluid Description: Clear Placental Delivery Description: Spontaneous Placenta Disposition: [facility] Cord Vessel Description: 3 Vessels Cord Entanglement: Around neck x 2, loose Nuchal Cord Compression: Without compression Infant A Gender: Female (1 minute): 7 (5 minute): 7 Delayed Cord Clamping: Yes Post Vaginal Delivery Medications Given After Delivery: IV Pitocin Episiotomy Description: None Laceration: None Complication Complications: None Multi Select Codes Urinary/Genital Urinary/Genital CPT Codes: 23734 Vaginal Delivery [facility]
--- NOTE | 2021-12-24 21:00 | DCINST_ITS ---
Discharge Instructions Diet Discharge Diet: No restrictions Activity Discharge Activity: Return to Normal Activity, May Not Drive (while taking narcotic pain medications.) and May Shower May resume sexual activity in: 4-6 weeks Dressing / Incision Call your doctor if your incision/area has: Continuous Slow Oozing, Sudden Increased Bleeding, Increased Pain/ Swelling, Increased Redness and Foul Smelling Discharge Follow Up Care Please Follow Up With: Danielle Hassan, DO When: Call [phone] to make an appointment with your doctor in 6 weeks. If you had elevated blood pressure or 4th degree laceration, you will need to be seen in 2 weeks. Test Results: Test results from this visit will be discussed in further detail at your follow- up appointment, if applicable. Discharge Plan Admission Admit Date/Time: 12/24/21 16:45 Attending Provider: Danielle Hassan Primary Care Provider: Salinas Carlson Discharge Orders/Prescriptions Prescriptions: No Action prenat.vits,rachel,[id number] [ Vitamin] tablet 1 tab PO DAILY sertraline 50 mg tablet 50 mg PO DAILY fexofenadine 180 mg Tablet 180 mg PO DAILY Referrals / Follow Up: Salinas Carlson MD [Primary Care Provider] -
[2021-12-25] VITALS (8 sets, daily range): BP systolic 105–118; BP diastolic 59–67; PULSE 66–79; RESP 16–18; TEMP 36.4–37.1; O2SAT 98–99
[2021-12-25] MEDS: Ibuprofen 600 MG Tablet PO ×3 (02:52→15:59)
[2021-12-25] MEDS: Acetaminophen 500 MG Tablet 1000 MG PO ×2 (02:53→20:57)
--- NOTE | 2021-12-25 09:45 | PCM.PN.OB ---
Subjective Subjective Patient doing well without complaints. Tolerating PO. Ambulating and voiding without difficulty. Feeding well. Denies chest pain, shortness of breath, calf pain/swelling, fevers, chills, lightheadedness. Objective Data Objective Data Vital Signs: Vital Signs Temp Pulse Resp BP Pulse Ox O2 Del Method 98.8 F 72 18 118/67 100 Room Air 12/25/21 08:36 12/25/21 08:36 12/25/21 08:36 12/25/21 08:36 12/24/21 18:25 12/25/21 08:36 Oxygen Delivery Method Room Air Weight: 165 lb 5.547 oz Body Mass Index (BMI) 25.9 Intake & Output: Intake and Output for Last 24 Hours 12/23/21 12/24/21 12/25/21 23:59 23:59 23:59 Intake Total 1679.16 / 1679.16 Output Total 1200 / 1200 Balance 1679.16 / 1679.16 -1200 / -1200 Lab / Micro Data Result Diagrams: 12/24/21 17:05 Labs: Laboratory Results - last 24 hr 12/24/21 16:05: Vag Amniotic Fld Detect POSITIVE H 12/24/21 17:05: WBC 14.2 H, RBC 4.12 L, Hgb 13.5, Hct 40.6, MCV 98.5, MCH 32.8 H, MCHC 33.3, RDW Std Deviation 49.6 H, RDW Coeff of Jonnie 13.6, Plt Count 254, MPV 9.9, Immature Gran % (Auto) 0.400, Neut % (Auto) 75.2 H, Lymph % (Auto) 16.5 L, Bradford % (Auto) 7.1, Eos % (Auto) 0.4, Baso % (Auto) 0.4, Absolute Neuts (auto) 10.7 H, Absolute Lymphs (auto) 2.33, Nucleated RBC % 0 12/24/21 18:10: Blood Type O POSITIVE, Antibody Screen NEGATIVE Micro: Microbiology 12/24/21 17:05 Nasal Secretion SARS-CoV-2 Antigen (Rapid) - Final Physical Exam Const alert and oriented x3 HEENT normocephalic Eyes PERRL Neck full ROM Resp normal respiratory effort GI soft to palpation GI Narrative: FF below U Assessment & Plan (1) Spontaneous vaginal delivery: COMMENT: baby girl Lisa 12/24/21- JV PLAN: Plan s/p PPD # 1 1. routine post delivery care 2. breast feeding- support given 3. rh positive 4. rubella immune
--- NOTE | 2021-12-25 13:40 | NURSING ---
nursing unit clerk reviewed. charting used for learning and educational purposes.
[2021-12-26 04:41] VITALS: BP 82/50; PULSE 53
[2021-12-26 04:42] VITALS: BP 116/71; PULSE 53; RESP 18
[2021-12-26 04:43] VITALS: BP 116/71; PULSE 57
[2021-12-26] MEDS: Ibuprofen 600 MG Tablet PO (05:23)
--- NOTE | 2021-12-26 08:33 | PCM.DC.SUM ---
Providers Date of Admission: 12/24/21 Primary Care Physician: Dr. Salinas Carlson MD Reason For Visit: VAGINAL DELIVERY Diagnosis Discharge Diagnosis (1) Spontaneous vaginal delivery: Status: Acute Code(s): O80 - Encounter for full-term uncomplicated delivery Medications at Discharge Home Medications prenat.vits,rachel,[id number]-ffpmd ( Vitamin tablet) 1 tab PO DAILY 12/21/17 sertraline 50 mg tablet 50 mg PO DAILY 05/07/21 fexofenadine 180 mg tablet 180 mg PO DAILY 12/24/21 ibuprofen 600 mg tablet 600 mg PO Q6H PRN pain 7 days #30 tabs 12/26/21 Hospital Course Operations None Summary of Care Provided Minutes Spent on Discharge: 10 Hospital Course: The patient was admitted to labor and delivery on 12/24/21 for active labor. She progressed to complete and delivered a viable female . On post day #1 she was ambulating well but was passing some blood clots. On post day #2 her bleeding was well controlled and she felt ready to go home. Physical Exam Const alert, oriented x3 and no apparent distress General Appearance: cooperative and comfortable Resp normal respiratory effort Cardio regular rate GI normal to inspection, nondistended, normoactive bowel sounds GI Narrative: uterus is firm below umbilicus Palpation: soft Bimanual Exam - Adnexa, Other: Negative for cul-de-sac fullness Back/Spine no CVA tenderness and thoraco-lumbar ROM normal Extremity normal to inspection, no clubbing, cyanosis or edema, no calf tenderness and no pedal edema Psych mental status grossly normal, thought process normal, cooperative, affect normal, speech normal, activity/motor behavior normal, denies homicidal ideation and denies suicidal ideation Weight / BMI Weight Weight: 165 lb 5.547 oz Body Mass Index (BMI) 25.9 ABG / Lab / Microbiology Data Result Diagrams: 12/24/21 17:05 Microbiology: Microbiology 12/24/21 17:05 Nasal Secretion SARS-CoV-2 Antigen (Rapid) - Final D/C Instructions Discharge Diet: No restrictions May resume sexual activity in: 4-6 weeks Call your doctor if your incision/area has: Continuous Slow Oozing, Sudden Increased Bleeding, Increased Pain/ Swelling, Increased Redness and Foul Smelling Discharge Please Follow Up With: Danielle Hassan DO When: Call [phone] to make an appointment with your doctor in 6 weeks. If you had elevated blood pressure or 4th degree laceration, you will need to be seen in 2 weeks. Meaningful Use Info Meaningful Use Diagnoses (Choose all that apply): None applicable Discharge Plan Admission Admit Date/Time: 12/24/21 16:45 Primary Reason for Your Visit: vaginal delivery Attending Provider: Danielle Hassan Primary Care Provider: Salinas Carlson Discharge Orders/Prescriptions Prescriptions: New ibuprofen 600 mg tablet 600 mg PO Q6H PRN (Reason: pain) 7 Days Qty: 30 0RF Continued prenat.vits,rachel,cxl-xijs-woten [ Vitamin] tablet 1 tab PO DAILY sertraline 50 mg tablet 50 mg PO DAILY fexofenadine 180 mg Tablet 180 mg PO DAILY Referrals / Follow Up: Salinas Carlson MD [Primary Care Provider] - Disposition Disposition (needs filled in before D/C Order can be placed): Home, Self Care
[2021-12-26 09:17] VITALS: BP 106/68; PULSE 103; RESP 16; TEMP 36.5; O2SAT 98
[2021-12-26 09:18] VITALS: BP 106/68; PULSE 93
== END 2021-12-26 10:55 | disposition home or self-care (01) | DRG 807 ==
LOC: WPOUT 16:45 → WP 16:47
PROVIDERS: Admitting Provider Obstetrics & Gynecology; PCP Family Medicine; Referring Provider Obstetrics & Gynecology; Visit Provider Obstetrics & Gynecology
DX: O42.92 Full-term premature rupture of membranes, unspecified as to length of time between rupture and onset of labor (principal); Z37.0 Single live birth; O99.344 Other mental disorders complicating childbirth; F41.9 Anxiety disorder, unspecified; O99.824 Streptococcus B carrier state complicating childbirth; O69.81X0 Labor and delivery complicated by cord around neck, without compression, not applicable or unspecified; O34.43 Maternal care for other abnormalities of cervix, third trimester; R87.610 Atypical squamous cells of undetermined significance on cytologic smear of cervix (ASC-US); O43.193 Other malformation of placenta, third trimester; Z3A.38 38 weeks gestation of pregnancy; Z79.899 Other long term (current) drug therapy
CPT/HCPCS: 59025; 59050; 84112; 85025; 86850; 86900; 86901; 87811; 99218; J7120; G0378; J2405

== ENCOUNTER → 2022-02-11 | Outpatient (CLI) | payer OTHER, SELFPAY ==
[2022-02-18 16:38] LABS: HPV APTIMA, High Risk Negative (Negative)
== END | disposition home or self-care (01) ==
PROVIDERS: PCP Family Medicine; Visit Provider Obstetrics & Gynecology
DX: Z12.4 Encounter for screening for malignant neoplasm of cervix (principal)
CPT/HCPCS: 87624; 88175; G0145

== ENCOUNTER → 2022-04-17 | Outpatient (CLI) | payer OTHER, SELFPAY ==
[2022-04-17 12:19] LABS: Absolute Lymphocyte Count 2.36 X10^3/uL (0.83-4.51); Absolute Neutrophil Count 2.8 X10^3/uL (2.0-7.7); Basophil# 0.06 X10^3/uL; Eosinophils% 1.7 % (0-5); Hematocrit 43.3 % (37-47); Hemoglobin 14.3 g/dL (12.0-15.0); Lymphocyte # 2.36 X10^3/ul (0.83-4.51); Lymphocyte % 39.3 % (19-41); Mean Corpuscular Volume 93.7 fL (81-99); Mean Platelet Vol. 9.8 fl (6.2-12.0); Monocyte# 0.67 X10^3/uL; Monocyte% 11.1 % (0-10); NRBC Flagged by Analyzer 0 % (0-5); Neutrophil # 2.81 X10^3/uL (2.7-7.7); Neutrophil % 46.7 % (47-70); Platelet Count 350 K/mm3 (150-450); RBC Distribution Width CV 13.3 % (11.6-14.6); RBC Distribution Width SD 45.9 fl (35.1-43.9); Red Blood Count 4.62 M/mm3 (4.2-5.4)
[2022-04-17 12:57] LABS: ALB/GLOB Ratio 1.1 RATIO (0.9-2.4); AST(SGOT) 17 U/L (15-37); Alanine Aminotransfer ALT/SGPT 23 U/L (13-56); Albumin, Serum 4.4 g/dL (3.2-5.0); Alkaline Phosphatase 78 U/L (45-117); Anion Gap 7 (5-15); BUN 15 mg/dL (7-18); BUN/Creat Ratio 19.5 RATIO (10-20); Calcium,Total 10.2 mg/dL (8.5-10.1); Chloride 106 mmol/L (98-107); Creatinine, Serum 0.77 mg/dL (0.55-1.02); EST Glomerular Filtration Rate 92 mL/min (>60); Est Glom Filt Rate - Afr Amer 111 mL/min (>60); Globulin 3.9 g/dL (2.2-4.2); Glucose 86 mg/dL (74-106); Lipase 212 U/L (73-393); Potassium 4.5 mmol/L (3.5-5.1); Protein, Total 8.3 g/dL (6.4-8.2); Sodium Level 139 mmol/L (136-145)
== END | disposition home or self-care (01) ==
PROVIDERS: PCP Family Medicine; Visit Provider Nurse Practitioner Family
DX: R10.11 Right upper quadrant pain (principal)
CPT/HCPCS: 36415; 80053; 83690; 85025

== ENCOUNTER → 2023-04-27 | Outpatient (CLI) | payer OTHER, SELFPAY ==
--- OUTSIDE RECORDS SUMMARY | 2023-04-27 08:08 | XMS RPT_ITS | CCD ---
Author Name Unknown Address [address] [place] [address] Organization [facility] Care Team Providers Care Production Hand Name Role Phone RAY CALIXTO Unavailable Unavailable RAY CALIXTO Unavailable Unavailable Problems Problem Classification Problem Date Documented Da te Episodic/Chronic Menstrual disorders (1 source) Irregular menstruation, unspecified; Translations: [Irregular menstruation, unspecified] Onset: 05-25-2017 Chronic Results Test Name Value Interpretation Reference Range Facil ity Encounters Encounter Date Encounter Type Care Provider Facility Start: 05-25-2017 End: 05-25-2017 Ambulatory RAY CALIXTO [facility] Start: 05-25-2017 End: 05-26-2017 Ambulatory RAY CALIXTO [facility] Summary Purpose Family History No Family History Records FoundNo Family History Records Found Advance Directives No Advanced Directives Records FoundNo Advanced Directives Records Found Additional Source Comments INFORMATION SOURCE (unrecogn ized section and content) DATE CREATED AUTHOR AUTHOR'S AKIRA ATION 10/17/2021 [facility] FOR RECORDS PERTAINING TO PATIENTS WHO ARE OR HAVE BEEN ENROLLED IN A CHEMICAL DEPENDENCY/SUBSTANCEABUSE PROGRAM, SOME INFORMATION MAY BE OMITTED. This clinical summary was aggregated from multiple sources. Caution should be exercised in using it in the provision of clinical care. This summary normalizes information from multiple sources, and as a consequence, information in this document may materially change the coding, format and clinical context of patient data. In addition, data may be omitted in some cases. CLINICAL DECISIONS SHOULD BE BASED ON THE PRIMARY CLINICAL RECORDS. [employer] provides no warranty or guarantee of the accuracy or completeness of information in this document.
[2023-04-27 13:01] LABS: T4 Free Direct 0.87 ng/dL (0.76-1.46); Thyroid Stim Hormone (TSH) 3.92 uIU/mL (0.358-3.74)
[2023-04-28 04:08] LABS: Thyroid Peroxidase AB < 9 IU/mL (0-34)
== END | disposition home or self-care (01) ==
LOC: LAB 07:57
PROVIDERS: PCP Family Medicine; Referring Provider Obstetrics & Gynecology; Visit Provider Obstetrics & Gynecology
DX: R61 Generalized hyperhidrosis (principal); Z13.29 Encounter for screening for other suspected endocrine disorder
CPT/HCPCS: 36415; 84439; 84443; 86376

== ENCOUNTER → 2023-05-05 | Outpatient (CLI) | payer OTHER, SELFPAY ==
--- NOTE | 2023-05-05 15:55 | RAD_ITS ---
STUDY: X-RAY CHEST REASON FOR EXAM: Female, 33 years old. hyperhidrosis TECHNIQUE: PA and lateral COMPARISON: None. FINDINGS: The lungs are clear and expanded. There is no demonstrated pleural abnormality. Normal size heart. Normal mediastinum and mikael. Normal visualized pulmonary arteries. Normal visualized aortic arch and descending thoracic aorta. Normal visualized thoracic spine. Normal visualized ribs, clavicles, and shoulders. There is no demonstrated abnormality of the visualized soft tissue structures of the upper abdomen. RAD/Chest PA and Lateral IMPRESSION: Normal x-ray examination of the chest. Electronically Signed: Ricardo Razo MD at 18:08 EST ,
[2023-05-05 15:57] LABS: Mucous, Urine 0 SEEN /hpf (<or=2+); Red Blood Cells-Urine 0 SEEN /hpf (0-5)
--- OUTSIDE RECORDS SUMMARY | 2023-05-05 16:13 | XMS RPT_ITS | CCD ---
Author Name Unknown Address [address] [place] [address] Organization [facility] Care Team Providers Care Benefits Processor Name Role Phone RAY CALIXOT Unavailable Unavailable RAY CALIXTO Unavailable Unavailable Problems Problem Classification Problem Date Documented Da te Episodic/Chronic Menstrual disorders (1 source) Irregular menstruation, unspecified; Translations: [Irregular menstruation, unspecified] Onset: 05-25-2017 Chronic Results Test Name Value Interpretation Reference Range Facil ity Encounters Encounter Date Encounter Type Care Provider Facility Start: 05-25-2017 End: 05-25-2017 Ambulatory RAY CALIXTO [facility] Start: 05-25-2017 End: 05-26-2017 Ambulatory RAY CALIXTO [facility] Summary Purpose Family History No Family History Records FoundNo Family History Records Found Advance Directives No Advanced Directives Records FoundNo Advanced Directives Records Found Additional Source Comments INFORMATION SOURCE (unrecogn ized section and content) DATE CREATED AUTHOR AUTHOR'S AKIRA ATION 10/17/2021 [facility] FOR RECORDS PERTAINING TO PATIENTS WHO [...] BE BASED ON THE PRIMARY CLINICAL RECORDS. [employer] provides no warranty or guarantee of the accuracy or completeness of information in this document.
[2023-05-05 18:04] LABS: Absolute Lymphocyte Count 2.82 X10^3/uL (0.83-4.51); Absolute Neutrophil Count 5.2 X10^3/uL (2.0-7.7); Basophil# 0.09 X10^3/uL; Eosinophil# 0.18 X10^3/uL; Hematocrit 41.8 % (37-47); Hemoglobin 13.6 g/dL (12.0-15.0); Lymphocyte # 2.82 X10^3/ul (0.83-4.51); Lymphocyte % 31.4 % (19-41); Mean Corp Hgb Conc 32.5 g/dL (32-36); Mean Corpuscular Volume 95.2 fL (81-99); Mean Platelet Vol. 9.8 fl (6.2-12.0); Monocyte# 0.68 X10^3/uL; Monocyte% 7.6 % (0-10); NRBC Flagged by Analyzer 0 % (0-5); Neutrophil % 57.8 % (47-70); Platelet Count 346 K/mm3 (150-450); RBC Distribution Width CV 12.9 % (11.6-14.6); Red Blood Count 4.39 M/mm3 (4.2-5.4)
[2023-05-05 18:08] LABS: Color, Urine Yellow (Yellow); Glucose, Dipstick Normal (Normal); Ketone-Dipstick Negative (Negative); Leukocyte Esterase-Dipstick 25 /ul (Negative); Nitrite-Dipstick Negative (Negative); Occult Blood-Urine 10 /ul (Negative); Protein-Dipstick Negative (Negative); Urine Bilirubin Dipstick Negative (Negative); Urine Clarity Clear (Clear); Urine Urobilinogen Normal (Normal)
[2023-05-05 18:25] LABS: Bacteria RARE /hpf (None Seen)
[2023-05-05 18:26] LABS: Erythrocyte Sedimentation Rate 3 mm/hr (0-30); Squamous Epithelial Cells - UA 5-10 SEEN /hpf (5-10); White Blood Cells 0-5 SEEN /hpf (0-5)
[2023-05-05 18:39] LABS: HIV - WCH Non-Reactive (Nonreactive)
[2023-05-05 18:46] LABS: AST(SGOT) 16 U/L (15-37); Alanine Aminotransfer ALT/SGPT 19 U/L (13-56); Albumin, Serum 3.8 g/dL (3.2-5.0); Alkaline Phosphatase 46 U/L (45-117); Anion Gap 4 (5-15); BUN 10 mg/dL (7-18); BUN/Creat Ratio 13.6 RATIO (10-20); CRP 5.83 mg/L (0.0-3.0); Calcium,Total 9.2 mg/dL (8.5-10.1); Chloride 106 mmol/L (98-107); Creatinine, Serum 0.74 mg/dL (0.55-1.02); EST Glomerular Filtration Rate 96 mL/min (>60); Est Glom Filt Rate - Afr Amer 116 mL/min (>60); Free T3 2.1 pg/mL (2.18-3.98); Glucose 89 mg/dL (74-106); Potassium 3.7 mmol/L (3.5-5.1); Protein, Total 7.8 g/dL (6.4-8.2); Rheumatoid Factor < 10.0 IU/mL (<15); Sodium Level 136 mmol/L (136-145); T4 Free Direct 0.87 ng/dL (0.76-1.46); Thyroid Stim Hormone (TSH) 3.48 uIU/mL (0.358-3.74)
[2023-05-07 11:09] LABS: ANTINUCLEAR ANTIBODIES DIRECT Negative (Negative)
[2023-05-07 12:09] LABS: CCP IgG Antibodies 8 units (0-19)
== END | disposition home or self-care (01) ==
LOC: MTLAB 15:52
PROVIDERS: PCP Family Medicine; Referring Provider Family Medicine; Visit Provider Family Medicine
DX: R61 Generalized hyperhidrosis (principal); L70.9 Acne, unspecified; M79.10 Myalgia, unspecified site
CPT/HCPCS: 36415; 71046; 80053; 81001; 82533; 84403; 84439; 84443; 84481; 85025; 85652; 86038; 86140; 86200; 86431; 86703

== ENCOUNTER → 2024-03-21 | Outpatient (CLI) | payer OTHER, SELFPAY ==
[2024-03-21 13:11] LABS: hCG Titer Quant., Serum 54961 mIU/mL (1-3)
== END | disposition home or self-care (01) ==
PROVIDERS: PCP Family Medicine; Referring Provider Obstetrics & Gynecology; Visit Provider Obstetrics & Gynecology
DX: Z34.90 Encounter for supervision of normal pregnancy, unspecified, unspecified trimester (principal); N91.2 Amenorrhea, unspecified
CPT/HCPCS: 36415; 84702

== ENCOUNTER → 2024-03-24 | Outpatient (CLI) | payer OTHER, SELFPAY ==
--- NOTE | 2024-03-24 10:29 | US_ITS ---
STUDY: FIRST TRIMESTER OBSTETRICAL ULTRASOUND REASON FOR EXAM: Female, 34 years old positive test, LMP not known LMP: Unknown. TECHNIQUE: Transabdominal and Transvaginal TECHNICAL QUALITY: Adequate. PRIOR ULTRASOUND: None. FINDINGS: There is visualization of a single gestational sac in a normal intrauterine position. The mean sac diameter (MSD) measures 4.0 cm, indicating an estimated gestational age (EGA) of 9 weeks, 3 days. The gestational sac shape is within normal limits. There is a visualized yolk sac. The yolk sac measures 0.5 cm. The placenta is non-visualized. There is visualization of a live embryo. The crown-rump length (CRL) measures 2.7 cm, indicating an estimated gestational age (EGA) of 9 weeks, 3 days. There is demonstrated cardiac activity with a heart rate of 173 bpm. The estimated gestation age (EGA) by US is 9 weeks, 3 days. The estimated date of delivery (BELLA) by US is 10/24/2024. The uterus measures 11.5 x 7.7 x 7.1 cm. There is no demonstrated uterine fibroid. The cervix is closed. The right ovary measures 3.8 x 1.7 x 1.3 cm. There is no right ovarian cyst. There is no visualized right adnexal mass or complex lesion. The left ovary measures 2.6 x 2.3 x 1.8 cm. There is no left ovarian cyst. There is no visualized left adnexal mass or complex lesion. There is no fluid in the cul de sac. US/Transvaginal w/Preg US IMPRESSION: Single live intrauterine at 9 weeks, 3 days by current ultrasound BELLA of 10/24/2024. Heart rate at 173 bpm, no suspicious sonographic findings. Electronically Signed: Momo Butler MD at 9:57 EST ,
== END | disposition home or self-care (01) ==
LOC: US 10:28
PROVIDERS: PCP Family Medicine; Referring Provider Nurse Practitioner Women's Health; Visit Provider Nurse Practitioner Women's Health
DX: Z34.90 Encounter for supervision of normal pregnancy, unspecified, unspecified trimester (principal)
CPT/HCPCS: 76817

== ENCOUNTER → 2024-03-31 | Outpatient (CLI) | payer OTHER, SELFPAY ==
[2024-04-04 20:07] LABS: Chlamydia By Nucleic Acid AMP Negative (Negative); Gonococcus By Nucleic Acid AMP Negative (Negative)
== END | disposition home or self-care (01) ==
LOC: LABSPEC 16:05
PROVIDERS: PCP Family Medicine; Visit Provider Advanced Practice Midwife
DX: O09.90 Supervision of high risk pregnancy, unspecified, unspecified trimester (principal); Z3A.00 Weeks of gestation of pregnancy not specified
CPT/HCPCS: 87086; 87491; 87591

== ENCOUNTER → 2024-05-05 | Outpatient (CLI) | payer OTHER, SELFPAY ==
[2024-05-05 10:25] LABS: Absolute Lymphocyte Count 1.79 X10^3/uL (0.83-4.51); Absolute Neutrophil Count 6.3 X10^3/uL (2.0-7.7); Basophil# 0.07 X10^3/uL; Basophil% 0.8 % (0-1); Eosinophil# 0.14 X10^3/uL; Eosinophils% 1.6 % (0-5); Hematocrit 37.1 % (37-47); Hemoglobin 12.4 g/dL (12.0-15.0); Lymphocyte # 1.79 X10^3/ul (0.83-4.51); Mean Corp Hgb Conc 33.4 g/dL (32-36); Mean Corpuscular Hgb 31.3 pg (27.0-32.0); Mean Corpuscular Volume 93.7 fL (81-99); Monocyte# 0.58 X10^3/uL; Monocyte% 6.5 % (0-10); NRBC Flagged by Analyzer 0 % (0-5); Neutrophil # 6.32 X10^3/uL (2.7-7.7); Neutrophil % 70.5 % (47-70); Platelet Count 274 K/mm3 (150-450); RBC Distribution Width CV 13.1 % (11.6-14.6); RBC Distribution Width SD 45.1 fl (35.1-43.9); Red Blood Count 3.96 M/mm3 (4.2-5.4)
[2024-05-05 11:23] LABS: HIV - WCH Non-Reactive (Nonreactive); Hepatitis B Surface Antigen Non-Reactive (Nonreactive); Hepatitis C Antibody Non-Reactive (Nonreactive); Rubella IgG Reactive (Nonreactive); Syphilis Antibodies Non-reactive
== END | disposition home or self-care (01) ==
LOC: BWCLAB 09:10
PROVIDERS: Advanced Practice Midwife; PCP Family Medicine; Referring Provider Obstetrics & Gynecology; Visit Provider Obstetrics & Gynecology
DX: O09.90 Supervision of high risk pregnancy, unspecified, unspecified trimester (principal); Z3A.00 Weeks of gestation of pregnancy not specified; Z36.3 Encounter for antenatal screening for malformations
CPT/HCPCS: 36415; 85025; 86703; 86762; 86780; 86803; 86850; 86900; 86901; 87340

== ENCOUNTER 2024-07-12 16:25 | Outpatient (CLI) | payer OTHER, SELFPAY ==
[2024-07-12 16:41] VITALS: BP 133/86; PULSE 72; TEMP 36.4
[2024-07-12 16:43] VITALS: BMI 25.7
[2024-07-12 17:17] LABS: Absolute Lymphocyte Count 2.19 X10^3/uL (0.83-4.51); Absolute Neutrophil Count 8.3 X10^3/uL (2.0-7.7); Basophil# 0.05 X10^3/uL; Basophil% 0.4 % (0-1); Eosinophil# 0.21 X10^3/uL; Eosinophils% 1.8 % (0-5); Hematocrit 33.3 % (37-47); Hemoglobin 11.6 g/dL (12.0-15.0); Lymphocyte # 2.19 X10^3/ul (0.83-4.51); Lymphocyte % 18.8 % (19-41); Mean Corp Hgb Conc 34.8 g/dL (32-36); Mean Corpuscular Hgb 32.9 pg (27.0-32.0); Mean Corpuscular Volume 94.3 fL (81-99); Mean Platelet Vol. 9.9 fl (6.2-12.0); Monocyte# 0.85 X10^3/uL; Monocyte% 7.3 % (0-10); NRBC Flagged by Analyzer 0 % (0-5); Neutrophil # 8.29 X10^3/uL (2.7-7.7); Neutrophil % 70.9 % (47-70); Platelet Count 250 K/mm3 (150-450); RBC Distribution Width CV 13.7 % (11.6-14.6); Red Blood Count 3.53 M/mm3 (4.2-5.4); White Blood Count 11.7 K/mm3 (4.4-11.0)
[2024-07-12 17:30] LABS: Red Blood Cells-Urine 0 SEEN /hpf (0-5)
[2024-07-12 17:31] LABS: Color, Urine Yellow (Yellow); Glucose, Dipstick 100 mg/dl (Normal); Ketone-Dipstick 5 mg/dl (Negative); Leukocyte Esterase-Dipstick Negative /ul (Negative); Nitrite-Dipstick Negative (Negative); Occult Blood-Urine 10 /ul (Negative); Protein-Dipstick 30 mg/dl (Negative); Specific Gravity, Urine 1.025 (1.002-1.030); Urine Bilirubin Dipstick Negative (Negative); Urine Clarity Sl. Cloudy (Clear); Urine Urobilinogen Normal (Normal)
--- NOTE | 2024-07-12 17:49 | OB.TRI.HP_ITS ---
HPI - General HPI Narrative CHATO WISEMAN, is a 34 y/o @ 26 weeks 1 day who presents to L&D after passing out while sitting down at work She states that her and a collegue went out for a milkshake and when she finished it she sat down at her desk to do some work and the next thing she knew she was waking up. She did not fall, experience change in vision, nausea, vomiting, or diarrhea. She states that her abdomen felt very tight and still does feel tight .She admits to occasional constipation during the . She denies loss of fluid, vaginal bleeding, or dec fm. Maternal Data Information BELLA Calculator Estimated Delivery Date Method Current WG Current Estimate 10/24/24 Ultrasound #1 25w 1d Other Estimates 11/05/24 Conception 23w 3d PFSH PFSH Medical History Previous recurrent miscarriages affecting , antepartum Spontaneous vaginal delivery Anxiety History of hysterosalpingogram Home Medications ?Medication ?Instructions ?Recorded ?Last Taken ?Type sertraline 50 mg tablet 50 mg PO DAILY 05/07/2112/12 07:00 History multivitamin no.47-iron fum 27 cap PO 03/29/24 Unknown History mg-folate no.1 1 mg-dha 300 mg capsule (PNV-DHA) Allergy/AdvReac Type Severity Reaction Status Date / Time No Known Allergies Allergy Verified 06/27/24 13:14 Family History Grandfather Heart disease Grandmother Breast cancer Social History adopted: No household members: spouse and children number of children: 3 current occupational status: employed current occupation: [employer] pets and animals: Yes pets and animals: dog(s) history of recent travel: Yes ([place]) out of state: Yes out of country: No sexually active: Yes Smoking Status: Never smoker alcohol intake: current alcohol intake frequency: a few times a month details: pre- substance use type: does not use well-balanced diet: daily or most days caffeine: Yes Type: coffee Number of servings: 1 eating out: 1-3 times/week during the past year weight has: remained stable what type of physical activity do you participate in: none ileana/alevism: Religious seatbelt use: always do you feel safe at home: Yes additional social history: [employer]- [employer] and 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 Date Name GA/Weeks Outcome Route Bth Weight Infant Gen Labor Lgth Anesthesia Del Locatn Provider FOB 07/17/18 Mary Ellen 37 live - full term 6lbs 8oz Female 12 h ours epidural [facility] EMERITA 04/12/20 Maria L 40 live - full term 8.5# Female epidu ral [facility] Mirlande Rj 12/24/21 LISA 38 live - full term 8lbs 4oz Female ep idural [facility] Danielle Hassan Rj Delivery Date: 07/17/18 Last Updated by: Maribell Lind PRoM Delivery Date: 04/12/20 Last Updated by: Kathleen MCLEOD Delivery Date: 12/24/21 Last Updated by: Viv Peralta see problem list for complications. Visit Details Expected Delivery Route/Plan Labor Preferences- CB/BF classes: [] labor support person: [] labor intervention preferences: [] pain management options preferred: [] cut cord/dad catch: [] : [] PP control planned: [] discussed possible routes of delivery and associated risks: [] special requests: [] Plans Covid status: [] Flu vaccine: [] Tdap vaccine: [] Rhogam: [] LARC form signed: [] Problem list reviewed and updated with the most current plan of care details and appropriate orders placed. Relevant counseling for the gestational age provided. Continue routine care and follow up unless otherwise noted in visit notes/problem list details OB Flowsheet Initial Weight: Not Recorded Date -?-?-?-?-?-?-?-?-?-?-?-?- EGA Weight BP Urine Prot -?-?-?-?-?-?-?-?-?-?-?-?- Glucose FHR FuHt Pres Dilation -?-?-?-?-?-?-?-?-?-?-?-?- Effaced St Visit Note 03/31/24 -?-?-?-?-?-?-?-?-?-?-?-?- 10w 3d 156 lb 119/80 -?-?-?-?-?-?-?-?-?-?-?-?- 166 -?-?-?-?-?-?-?-?-?-?-?-?- KW- CRL cons wit h US. NIPT declined. 05/05/24 -?-?-?-?-?-?-?-?-?-?-?-?- 15w 3d 160 lb 125/78 Negative -?-?-?-?-?-?-?-?-?-?-?-?- Negative 150 -?-?-?-?-?-?-?-?-?-?-?-?- JV- no complaint s today. just some nausea at bedtime. 06/07/24 -?-?-?-?-?-?-?-?-?-?-?-?- 20w 1d 164 lb 4 oz 110/68 Nega tive -?-?-?-?-?-?-?-?-?-?-?-?- Negative 142 -?-?-?-?-?-?-?-?-?-?-?-?- MH-No VB. Josef Silvestre Reviewed nl anatomy 06/27/24 -?-?-?-?-?-?-?--?-?-?-?-?- 23w 0d 163 lb 6 oz 115/74 Nega tive -?-?-?-?-?-?-?-?-?-?-?-?- Negative 147 23 -?-?-?-?-?-?-?-?-?-?-?-?- JV- no lof, vagi nal bleeding, or cramping. glucola next visit. ROS Constitutional Constitutional: Reports systems reviewed and no addt'l complaints, except as documented Gastrointestinal Gastrointestinal: Denies bloating, constipation, cramping, diarrhea, nausea or vomiting Genitourinary Genitourinary: Reports other Details: Denies vaginal odor, vaginal bleeding, or vaginal discharge ; Denies difficulty urinating or flank pain Physical Exam HEENT normocephalic Resp normal respiratory effort and normal air movement Narrative: cervix is closed/thick/high, and poserior. Extremity normal to inspection General Extremity: edema bilateral (trace ) Neuro moves all extremities Psych mental status grossly normal and affect normal NST FHR Rate Baby A Baseline: 140 Variability:: Moderate Decelerations:: None NST Reactive:: Appropriate for gestational age FHR Category:: Category I Assessment & Plan (1) Syncopal episodes: (2) Sciatic leg pain: COMMENT: Chiropractic referral,yoga stretches (3) Advanced maternal age (AMA) in : COMMENT: growth US @ 36wks (4) Family history of gastroschisis: (5) Supervision of high-risk : QUALIFIERS: Trimester: second trimester Qualified Code(s): O09.92 - Supervision of high risk , unspecified, second trimester COMMENT: PRR, , BELLA 10/24/24, PC Maria L Hyde, Lisa Rj (6) : QUALIFIERS: Weeks of gestation: 23 weeks Qualified Code(s): Z3A.23 - 23 weeks gestation of COMMENT: declined NIPT & Carrier testing; nl anatomy (7) Unknown date of last menstrual period, antepartum: (8) Anxiety disorder affecting , antepartum: COMMENT: Zoloft 50mg, encouraged counseling' stable PLAN: Plan will start with some baseline labs, EKG, and monitoring for contractions. If all normal may dc to home Charges/Coding Multi Select Codes Visit Charges Office Visit/Consults: 99242 OV L3 Est 20min Urinary/Genital Urinary/Genital CPT Codes: 74881-96 non-stress test Interp
--- NOTE | 2024-07-12 17:56 | EKG12_ITS ---
Test Reason : SYNCOPE Blood Pressure : */* mmHG Vent. Rate : 63 BPM Atrial Rate : 63 BPM P-R Int : 144 ms QRS Dur : 82 ms QT Int : 378 ms P-R-T Axes : 42 59 25 degrees QTcB Int : 386 ms Normal sinus rhythm Normal ECG No previous ECGs available Confirmed by Bryan Og ([id number]), editorial writer YOSHI PLATA ([id number]) on 07/13/2024 7:57:32 AM Referred By: Danielle Hassan Confirmed By: Bryan Og
[2024-07-12 18:08] LABS: Bacteria 2+ /hpf (None Seen); Mucous, Urine 1+ /hpf (<or=2+); Squamous Epithelial Cells - UA 0-5 SEEN /hpf (5-10); White Blood Cells 0-5 SEEN /hpf (0-5)
[2024-07-12 18:14] LABS: ALB/GLOB Ratio 1.2 RATIO (0.9-2.4); AST(SGOT) 18 U/L (<=31); Alanine Aminotransfer ALT/SGPT 9 U/L (<=34); Albumin, Serum 3.6 g/dL (3.5-5.0); Alkaline Phosphatase 69 U/L (35-104); Anion Gap 11 (5-15); BUN 7 mg/dL (4-19); BUN/Creat Ratio 13.3 RATIO (10-20); Carbon Dioxide 19.3 mmol/L (21.0-32.0); Chloride 105 mmol/L (98-108); Creatinine, Serum 0.56 mg/dL (0.70-1.20); EST Glomerular Filtration Rate 122 (>60); Estimated Creatinine Clearance 147.68 ml/min (50-250); Globulin 2.9 g/dL (2.2-4.2); Glucose 91 mg/dL (70-99); Potassium 3.5 mmol/L (3.3-5.1); Protein, Total 6.5 g/dL (5.9-8.4); Sodium Level 136 mmol/L (133-145); Total Bilirubin < 0.15 mg/dL (0.00-1.30)
[2024-07-12 21:27] VITALS: PULSE 100; O2SAT 97
[2024-07-12 21:29] VITALS: BP 132/81; PULSE 102
[2024-07-12 21:59] VITALS: BP 123/68; PULSE 82
== END 2024-07-12 18:41 | disposition home or self-care (01) ==
LOC: WPOUT 16:29 → WP 16:30
PROVIDERS: PCP Family Medicine; Referring Provider Obstetrics & Gynecology; Visit Provider Obstetrics & Gynecology
DX: O99.891 Other specified diseases and conditions complicating pregnancy (principal); O99.342 Other mental disorders complicating pregnancy, second trimester; R55 Syncope and collapse; F41.9 Anxiety disorder, unspecified; Z3A.26 26 weeks gestation of pregnancy
CPT/HCPCS: 36415; 59050; 80053; 81001; 85025; 93005; 99221; G0378

== ENCOUNTER → 2024-07-25 | Outpatient (CLI) | payer OTHER, SELFPAY ==
[2024-07-25 12:10] LABS: Absolute Lymphocyte Count 1.49 X10^3/uL (0.83-4.51); Absolute Neutrophil Count 7.2 X10^3/uL (2.0-7.7); Basophil# 0.05 X10^3/uL; Basophil% 0.5 % (0-1); Eosinophil# 0.08 X10^3/uL; Eosinophils% 0.8 % (0-5); Hematocrit 33.5 % (37-47); Hemoglobin 11.3 g/dL (12.0-15.0); Lymphocyte # 1.49 X10^3/ul (0.83-4.51); Lymphocyte % 15.8 % (19-41); Mean Corp Hgb Conc 33.7 g/dL (32-36); Mean Corpuscular Hgb 33.1 pg (27.0-32.0); Mean Corpuscular Volume 98.2 fL (81-99); Monocyte# 0.52 X10^3/uL; Monocyte% 5.5 % (0-10); NRBC Flagged by Analyzer 0 % (0-5); Neutrophil # 7.22 X10^3/uL (2.7-7.7); Neutrophil % 76.7 % (47-70); Platelet Count 254 K/mm3 (150-450); RBC Distribution Width CV 13.8 % (11.6-14.6); RBC Distribution Width SD 49.4 fl (35.1-43.9); Red Blood Count 3.41 M/mm3 (4.2-5.4); White Blood Count 9.4 K/mm3 (4.4-11.0)
[2024-07-25 13:25] LABS: Glucose Challenge Gest 1H 50g 137 mg/dL (70-140); HIV Nonreactive (Nonreactive); Syphilis Antibodies Nonreactive (Nonreactive)
== END | disposition home or self-care (01) ==
LOC: BWCLAB 11:09
PROVIDERS: Obstetrics & Gynecology; PCP Family Medicine; Referring Provider Obstetrics & Gynecology; Visit Provider Obstetrics & Gynecology
DX: O09.92 Supervision of high risk pregnancy, unspecified, second trimester (principal); Z3A.00 Weeks of gestation of pregnancy not specified; Z13.1 Encounter for screening for diabetes mellitus
CPT/HCPCS: 36415; 82950; 85025; 86703; 86780

== ENCOUNTER → 2024-08-04 | Outpatient (CLI) | payer OTHER, SELFPAY ==
[2024-08-04 10:33] LABS: Glucose GTT-Gestation. Fasting 92 mg/dL (<105)
[2024-08-04 12:56] LABS: Glucose GTT-Gestational 1 Hr 142 mg/dL (<190)
[2024-08-04 13:55] LABS: Glucose GTT-Gestational 2 Hr 129 mg/dL (<165)
[2024-08-04 14:41] LABS: Glucose GTT-Gestational 3 Hr 98 L (<145)
== END | disposition home or self-care (01) ==
LOC: LAB 09:56
PROVIDERS: PCP Family Medicine; Referring Provider Nurse Practitioner Women's Health; Visit Provider Nurse Practitioner Women's Health
DX: O99.810 Abnormal glucose complicating pregnancy (principal); Z3A.00 Weeks of gestation of pregnancy not specified
CPT/HCPCS: 36415; 82951; 82952

== ENCOUNTER → 2024-08-18 | Outpatient (CLI) | payer OTHER, SELFPAY | END | disposition home or self-care (01) | LOC: LABSPEC 14:17 | PROVIDERS: PCP Family Medicine; Referring Provider Nurse Practitioner Women's Health; Visit Provider Nurse Practitioner Women's Health | DX: R30.0 Dysuria (principal) | CPT/HCPCS: 87086; 87088 ==

== ENCOUNTER → 2024-08-29 | Outpatient (CLI) | payer OTHER, SELFPAY ==
--- NOTE | 2024-08-29 12:23 | US_ITS ---
EXAM: Ultrasound of the left axilla. CLINICAL HISTORY: Two-week history of nonpainful lump in the left axillary region. COMPARISON: None TECHNIQUE: Targeted sonogram of the left axillary region was performed. FINDINGS: Findings suggestive of left axillary vein thrombosis. Clinical correlation recommended. The referring physician was notified. US/Axilla - Left IMPRESSION: Findings in keeping with the left axillary venous thrombosis. Clinical correla tion recommended. Reading Location: [facility]
== END | disposition home or self-care (01) ==
LOC: US 12:23
PROVIDERS: PCP Family Medicine; Referring Provider Nurse Practitioner Women's Health; Visit Provider Nurse Practitioner Women's Health
DX: R22.32 Localized swelling, mass and lump, left upper limb (principal)
CPT/HCPCS: 76882

== ENCOUNTER → 2024-09-06 | Outpatient (CLI) | payer OTHER, SELFPAY ==
--- NOTE | 2024-09-06 07:59 | VDUE_ITS ---
Reason For Study Reason For Study: Left arm swelling Left Proximal Left jugular vein is spontaneous, widely patent, phasic, with no intraluminal echogenicity noted. Left subclavian vein is spontaneous, widely patent, phasic, with no intraluminal echogenicity noted. Left Arm Left axillary vein is spontaneous, patent, phasic, competent, compressible and demonstrates augmentation. Left brachial vein is compressible. Left cephalic vein is compressible. Left basilic vein is compressible. Left Lower Arm Left radial vein is compressible. Left ulnar vein is compressible. Procedure This was a unilateral left upper extremity venous doppler examination. A preliminary report was called and/or faxed to [facility]. VL/Venous Duplex US, Unilateral Interpretation Summary Deep veins of the left upper extremity are patent and compressible segmentally. There is no evidence of deep vein thrombosis. Superficial veins of the left upper extremity are patent and compressible segme ntally. There is no evidence of superficial vein thrombosis. Ordering Physician: Janine Mendez Referring Physician: Devin Carlson MD Performed By: Flor Mckeon RVT ???
== END | disposition home or self-care (01) ==
LOC: CVS 07:59
PROVIDERS: PCP Family Medicine; Referring Provider Physician Assistant; Visit Provider Physician Assistant
DX: O22.30 Deep phlebothrombosis in pregnancy, unspecified trimester (principal); R22.32 Localized swelling, mass and lump, left upper limb; Z3A.00 Weeks of gestation of pregnancy not specified
CPT/HCPCS: 93971

== ENCOUNTER → 2024-09-15 | Outpatient (CLI) | payer OTHER, SELFPAY ==
--- NOTE | 2024-09-15 13:54 | US_ITS ---
EXAM: Miscellaneous ultrasound CLINICAL HISTORY: Left axilla mass COMPARISON: 08/29/2024 TECHNIQUE: Targeted soft tissue ultrasound of the left axilla with grayscale and color flow US/Axilla - Left IMPRESSION: Targeted ultrasound of the left axilla demonstrates no definite soft tissue mas s. Prominent but not enlarged lymph nodes measuring up to 0.8 x 0.5 x 0.2 cm. No vascular thrombosis is noted. Reading Location: [id number]
== END | disposition home or self-care (01) ==
LOC: OPUS 13:50 → US 13:52
PROVIDERS: PCP Family Medicine; Referring Provider Obstetrics & Gynecology; Visit Provider Obstetrics & Gynecology
DX: R22.32 Localized swelling, mass and lump, left upper limb (principal)
CPT/HCPCS: 76882

== ENCOUNTER → 2024-09-29 | Outpatient (CLI) | payer OTHER, SELFPAY | END | disposition home or self-care (01) | LOC: LABSPEC 13:58 | PROVIDERS: PCP Family Medicine; Referring Provider Obstetrics & Gynecology; Visit Provider Obstetrics & Gynecology | DX: O09.93 Supervision of high risk pregnancy, unspecified, third trimester (principal); Z3A.00 Weeks of gestation of pregnancy not specified | CPT/HCPCS: 87081 ==

== ENCOUNTER → 2024-10-10 | Outpatient (CLI) | payer OTHER, SELFPAY ==
--- NOTE | 2024-10-10 11:11 | US_ITS ---
PROCEDURE: OB LIMITED WITH BIOMETRICS 10/10/2024 REASON FOR EXAM: GROWTH TECHNIQUE: OB LIMITED WITH BIOMETRICS COMPARISON: None FINDINGS LMP: January 18, 2024. Number: 1 Position: Vertex Placental Position: Fundal and not low-lying. Placental Abnormalities: No evidence of previa. DIMENSIONS: Biparietal Diameter: 10 cm: 40 weeks and 6 days: 99.9 percentile/ Head Circumference: 35.2 cm: 41 weeks and 0 days: 91.5 percentile/ Abdominal Circumference: 37.1 cm: 41 weeks and 0 days: 99.9 percentile/ Femur Length: 7.3 cm: 37 weeks and 2 days: 33.6 percentile/ ESTIMATED WEIGHT: 4062 g plus/-609 g ESTIMATED WEIGHT PERCENTILE (24+ weeks): 97 ESTIMATED GESTATIONAL AGE: Baseline: 38 weeks and 0 days By Ultrasound: 40 weeks and 1 day ESTIMATED DATE OF DELIVERY: Baseline: October 24, 2024 By Ultrasound: October 09, 2024 BIOPHYSICAL ASSESSMENT: Amniotic Fluid Volume: 3.6 cm Amniotic Fluid Index: 9.8 cm (8-24 cm normal range) Cardiac Motion: 141 beats per minute (average) Trunk and Limb Motion: Present. MATERNAL ANATOMY: Adnexa: Neither maternal ovary is successfully identified. US/OB Limited With Biometrics IMPRESSION: Single live intrauterine gestation with a mean gestational age of 40 weeks and 1 day. Reading Location: [place] [id number]
== END | disposition home or self-care (01) ==
LOC: US 11:07
PROVIDERS: PCP Family Medicine; Referring Provider Obstetrics & Gynecology; Visit Provider Obstetrics & Gynecology
DX: O22.30 Deep phlebothrombosis in pregnancy, unspecified trimester (principal); Z3A.00 Weeks of gestation of pregnancy not specified
CPT/HCPCS: 76816

== ENCOUNTER 2024-10-17 07:09 | Inpatient (IN) | payer OTHER, SELFPAY ==
[2024-10-17] VITALS (69 sets, daily range): BP systolic 66–176; BP diastolic 44–127; PULSE 58–173; RESP 16–20; TEMP 36.1–36.6; O2SAT 85–100; BMI 27.6
[2024-10-17] MEDS: Lactated Ringers 1,000 ML 50 ML IV (07:35)
[2024-10-17 08:07] LABS: Hematocrit 36.6 % (37-47); Hemoglobin 12.4 g/dL (12.0-15.0); Immature Granulocytes Count 0.060 X10^3/uL (0.0-0.0); Mean Corp Hgb Conc 33.9 g/dL (32-36); Mean Corpuscular Volume 95.8 fL (81-99); Mean Platelet Vol. 10.1 fl (6.2-12.0); NRBC Flagged by Analyzer 0 % (0-5); Platelet Count 250 K/mm3 (150-450); RBC Distribution Width CV 14.2 % (11.6-14.6); RBC Distribution Width SD 49.2 fl (35.1-43.9); Red Blood Count 3.82 M/mm3 (4.2-5.4); White Blood Count 9.0 K/mm3 (4.4-11.0)
[2024-10-17] MEDS: Oxytocin 15 Units/NS 250ml 15 UNITS/250 ML IV.SOLN 2 UNITS IV (08:18)
--- NOTE | 2024-10-17 08:33 | HP.PCM.OB_ITS ---
HPI - General General Date of Admission: 10/17/24 Date of Service: 10/17/24 HPI Narrative CHATO WISEMAN, is a 34 F at 39.0 weeks gestation who presents to unit for IOL for AMA Maternal Data Information BELLA Calculator Estimated Delivery Date Method Current WG Current Estimate 10/24/24 Ultrasound #1 39w 0d Other Estimates 11/05/24 Conception 37w 2d Final BELLA: 10/24/24 Final BELLA Source: US >20 weeks Gestational age: 39.0 PFSH PFSH Medical History (Updated 10/17/24 @ 08:35 by Iris Hubbard CNM) Previous recurrent miscarriages affecting , antepartum Spontaneous vaginal delivery Anxiety History of hysterosalpingogram Home Medications ?Medication ?Instructions ?Recorded ?Last Taken ?Type sertraline 50 mg tablet 50 mg PO DAILY anxiety 05/0710/17/24 06:30 History 50 mg multivitamin no.47-iron fum 27 1 cap PO DAILY pregnanc y 03/29/24 10/16/24 22:00 History mg-folate no.1 1 mg-dha 300 mg 1 cap capsule (PNV-DHA) Allergy/AdvReac Type Severity Reaction Status Date / Time No Known Allergies Allergy Verified 10/17/24 07:57 Family History Grandfather Heart disease Grandmother Breast cancer Surgical History (Updated 10/17/24 @ 08:02 by Sheree Orona) [place] teeth removed Social History adopted: No household members: spouse and children number of children: 3 current occupational status: employed current occupation: [employer] pets and animals: Yes pets and animals: dog(s) history of recent travel: Yes ([place]) out of state: Yes out of country: No sexually active: Yes Smoking Status: Never smoker alcohol intake: current alcohol intake frequency: a few times a month details: pre- substance use type: does not use well-balanced diet: daily or most days caffeine: Yes Type: coffee Number of servings: 1 eating out: 1-3 times/week during the past year weight has: remained stable what type of physical activity do you participate in: none ileana/buddhist: Jewish seatbelt use: always do you feel safe at home: Yes additional social history: [employer] and 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 Date Name GA/Weeks Outcome Route Bth Weight Gen Labor Lgth Anesthesia Del Locatn Provider FOB 07/17/18 [place] 37 live - full term 6lbs 8oz Female 12 h ours epidural [facility] EMERITA 04/12/20 Maria L 40 live - full term 8.5# Female epidu ral [facility] Mirlande Rj 12/24/21 JORGE 38 live - full term 8lbs 4oz Female ep idural [facility] Danielletemo Hassan Rj Delivery Date: 07/17/18 Last Updated by: Maribell Lind PRoM Delivery Date: 04/12/20 Last Updated by: Kathleen Mccall ROM Delivery Date: 12/24/21 Last Updated by: Viv Peralta see problem list for complications. Visit Details Expected Delivery Route/Plan Labor Preferences- CB/BF classes: no labor support person: Rj labor intervention preferences: [] pain management options preferred: epidural cut cord/dad catch: cord : yes PP control planned: yes discussed possible routes of delivery and associated risks: [] special requests: [] Plans Covid status: [] Flu vaccine: [] Tdap vaccine: [] Rhogam: na LARC form signed: yes Problem list reviewed and updated with the most current plan of care details and appropriate orders placed. Relevant counseling for the gestational age provided. Continue routine care and follow up unless otherwise noted in visit notes/problem list details OB Flowsheet Initial Weight: Not Recorded Date -?-?-?-?-?-?-?-?-?-?-?-?- EGA Weight BP Urine Prot -?-?-?-?-?-?-?-?-?-?-?-?- Glucose FHR FuHt Pres Dilation -?-?-?-?-?-?-?-?-?-?-?-?- Effaced St Visit Note 03/31/24 -?-?-?-?-?-?-?-?-?-?-?-?- 10w 3d 156 lb 119/80 -?-?-?-?-?-?-?-?-?-?-?-?- 166 -?-?-?-?-?--?-?-?-?-?-?-?- KW- CRL cons wit h US. NIPT declined. 05/05/24 -?-?-?-?-?-?-?-?-?-?-?-?- 15w 3d 160 lb 125/78 Negative -?-?-?-?-?-?-?-?-?-?-?-?- Negative 150 -?-?-?-?-?-?-?-?-?-?-?-?- JV- no complaint s today. just some nausea at bedtime. 06/07/24 -?-?-?-?-?-?-?-?-?-?-?-?- 20w 1d 164 lb 4 oz 110/68 Nega tive -?-?-?-?-?-?-?-?-?-?-?-?- Negative 142 -?-?-?-?-?-?-?-?-?-?-?-?- MH-No VB. Josef Silvestre Reviewed nl anatomy 06/27/24 -?-?-?-?-?-?-?-?-?-?-?-?- 23w 0d 163 lb 6 oz 115/74 Nega tive -?-?-?-?-?-?-?-?-?-?-?-?- Negative 147 23 -?-?-?-?-?-?-?-?-?-?-?-?- JV- no lof, vagi nal bleeding, or cramping. glucola next visit. 07/25/24 -?-?-?-?-?-?-?-?-?-?-?-?- 27w 0d 166 lb 4 oz 116/75 Nega tive -?-?-?-?-?-?-?-?-?-?-?-?- Negative 140 28 -?-?-?-?-?-?-?-?-?-?-?-?- KW- no vb/lof/ct x. good fm. glucose and LARC today. 08/15/24 -?-?-?-?-?-?-?-?-?-?-?-?- 30w 0d 171 lb 111/71 Trace -?-?-?-?-?-?-?-?-?-?-?-?- Negative 152 31 -?-?-?-?-?-?-?-?-?-?-?-?- -No VB, LOF. G ood FM. tdap. Now has soft mass 2cm in left axilla-US ordered 09/01/24 -?-?-?-?-?-?-?-?-?-?-?-?- 32w 3d 172 lb 6 oz 125/73 Nega tive -?-?-?-?-?-?-?-?-?-?-?-?- Negative 145 32 -?-?-?-?-?-?-?-?-?-?-?-?- SM- no vb lof go od fm no regular ctx discussed management of DVT- fu US next week. 09/07/24 -?-?-?-?-?-?-?-?-?-?-?-?- 33w 2d 174 lb 4 oz 120/77 Nega tive -?-?-?-?-?-?-?-?-?-?-?-?- Negative 140 -?-?-?-?-?-?-?-?-?-?-?-?- MH-NST only -NST only reactive. 09/15/24 -?-?-?-?-?-?-?-?-?-?-?-?- 34w 3d 174 lb 121/78 Negative -?-?-?-?-?-?-?-?-?-?-?-?- Negative 150 37 -?-?-?-?-?-?-?-?-?-?-?-?- Sm- no vb lof go od fm no regular ctx Sm- no vb lof good fm no reg ular ctx no clot on doppler, getting repeat imaging of lump in axill and repeat doppler 09/29/24 -?-?-?-?-?-?-?-?-?-?-?-?- 36w 3d 175 lb 6 oz 124/81 Nega tive -?-?-?-?-?-?-?-?-?-?-?-?- Negative 147 37.5 Cephalic 1 -?-?-?-?-?-?-?-?-?-?-?-?- 0 -3 JV- GBS co llected. no lof, vaginal bleeding or dec fm. No further need for nst's as clot was ruled out. 10/07/24 -?-?-?-?-?-?-?-?-?-?-?-?- 37w 4d 176 lb 2 oz 129/81 Nega tive -?-?-?-?-?-?-?-?-?-?-?-?- Negative 140 38 Cephalic 1 -?-?-?-?-?-?-?-?-?-?-?-?- SM- no vb lof go od fm no reuglar ctx 10/10/24 -?-?-?-?-?-?-?-?-?-?-?-?- 38w 0d 178 lb 126/78 Negative -?-?-?-?-?-?-?-?-?-?-?-?- Negative 140 40 Cephalic 3 -?-?-?-?-?-?-?-?-?-?-?-?- 40 -3 KW-no vb/l of/ctx. good fm. has growth US today. KW-no vb/lof/ctx. good fm. h as growth US today. IOL set up for next week. NST FHR Rate Baby A Baseline: 130 Variability:: Moderate Accelerations:: 15 x 15 Decelerations:: None NST Reactive:: Yes FHR Category:: Category I Uterine Activity:: occasional ROS Constitutional Constitutional: Denies change in weight, fatigue, fever(s), headache(s), poor appetite or weakness Eyes Eyes: Denies blurry vision, change in vision, floaters, seeing flashes or spots in vision ENT HEENT: Denies dizziness, headache(s), loss taste/smell or sore throat Cardiovascular Cardiovascular: Denies chest pain, dizziness, dyspnea, irregular heart rhythm, lightheadedness, palpitations or rapid heart rate Respiratory/Chest Respiratory/Chest: Denies change in mental status, chest tightness, cough, dyspnea or breast pain Gastrointestinal Gastrointestinal: Denies anorexia, chewing difficulty, constipation, diarrhea or weight changes Genitourinary Genitourinary: Denies difficulty urinating, dysuria, flank pain, genital pain, urinary frequency or urinary urgency Musculoskeletal Musculoskeletal: Denies back pain, difficulty walking, extremity pain, joint pain, muscle cramps or muscle weakness Integumentary Integumentary: Denies lesions or unusual bruising Neurologic Neurologic: Denies abnormal movements, abnormal speech, dizziness, numbness, seizure-like activity, syncope or weakness Psychiatric Psychiatric: Denies behavioral changes, change in appetite, confusion, depression, homicidal ideation, suicidal ideation or suicidal thoughts Endocrine Endocrinology: Denies excessive sweating, polydipsia or polyuria Hematologic/Lymphatic Hematologic/Lymphatic: Denies anemia Allergic/Immunologic Allergic/Immunologic: Denies itchy eyes, lip swelling, throat swelling, tongue swelling or wheezing Vital Signs Vital Signs Vital Signs: 10/17/24 07:40 10/17/24 07:40 10/17/24 07:40 Temperature Temperature Source Temporal Pulse Rate 83 Blood Pressure 118/73 BP Systolic 118 BP Diastolic 73 Pulse Ox 10/17/24 07:40 10/17/24 07:41 10/17/24 07:41 Temperature 97.4 F L Temperature Source Pulse Rate 84 Blood Pressure BP Systolic BP Diastolic Pulse Ox 97 Weight Weight: 176 lb 5.917 oz Body Mass Index (BMI) 27.6 Physical Exam Const alert, oriented x3 and no apparent distress General Appearance: cooperative Orientation / Consciousness: awake HEENT normocephalic Neck full ROM Lymph Lymphatic: no lymphadenopathy noted Chest inspection of chest normal Resp normal respiratory effort and normal air movement Effort and Inspection: able to speak in complete sentences and symmetric chest movement GI soft to palpation and non-tender Inspection: gravid Palpation: soft; Negative for tender external exam normal Back/Spine normal to inspection Extremity normal to inspection and full ROM Skin no rashes or lesions noted Psych mental status grossly normal Appearance: grossly normal Speech: normal speech Labs Labs Labs: Blood Type O POSITIVE Antibody Screen NEGATIVE Hct 36.6 % (37-47) L Hgb 12.4 g/dL (12.0-15.0) Pap Smear Negative Obstetrics Ultrasound Syphilis Total Ab Nonreactive (Nonreactive) Rubella IgG Antibody Reactive (Nonreactive) Hep Bs Antigen Non-Reactive (Nonreactive) Hepatitis C Antibody Non-Reactive (Nonreactive) Chlamydia DNA ([place]) Negative (Negative) N.gonorrhoeae DNA ([place]) Negative (Negative) HIV 1&2 Antibody Nonreactive (Nonreactive) Glucose 1 Hr 50 gm 137 mg/dL (70-140) Gest Glucose Tolerance MG/DL Rhogam given: No Miscellaneous Test Assessment & Plan (1) Encounter for induction of labor: PLAN: Patient presents IOL, plan management for with pitocin/AROM. Pain management: plans epidural. GBS negative. Management of any complications: none I have reviewed the [facility] and made any clinically relevant updates. Dr Anders aware of assessment, plan and admission. agrees with above (2) Mass of left axilla: COMMENT: No DVT on 2nd imaging. 3rd imaging in 10 days. Lovenox DC'd (3) Abnormal glucose affecting : COMMENT: nl 3 HR GTT (4) Syncopal episodes: QUALIFIERS: Syncope type: unspecified Qualified Code(s): R55 - Syncope and collapse (5) Sciatic leg pain: COMMENT: Chiropractic referral,yoga stretches (6) Advanced maternal age (AMA) in : COMMENT: growth US @ 36wks (7) Family history of gastroschisis: (8) Supervision of high-risk : QUALIFIERS: Trimester: third trimester Qualified Code(s): O09.93 - Supervision of high risk , unspecified, third trimester COMMENT: PRR, , BELLA 10/24/24, PC Maria L Hyde, Jorge Rj (9) : QUALIFIERS: Weeks of gestation: 38 weeks Qualified Code(s): Z3A.38 - 38 weeks gestation of COMMENT: Neg GBS. declined NIPT & Carrier testing; nl anatomy (10) Unknown date of last menstrual period, antepartum: (11) ASCUS of cervix with negative high risk HPV: COMMENT: neg/neg 2021 (12) Anxiety disorder affecting , antepartum: COMMENT: Zoloft 50mg, encouraged counseling' stable Charges/Coding Multi Select Codes Urinary/Genital Urinary/Genital CPT Codes: No Charge
[2024-10-17 08:38] LABS: Syphilis Antibodies Nonreactive (Nonreactive)
[2024-10-17] MEDS: Lactated Ringers 1,000 ML 999 ML IV ×2 (10:15→14:31)
[2024-10-17] MEDS: fentaNYL-bupivacaine (epidural) 100 ML BAG EPIDURAL ×2 (11:10→15:12)
--- NOTE | 2024-10-17 12:09 | PCM.PN.BLA ---
Progress Note comfortable with epidural current tracing: FHT: 115 Moderate variability reactive no decelerations category I tracing [place]: 2-3 minute Contractions Membranes:ruptured for clear bedside US to confirm cephalic. SVE:5//-2 Pitocin at 6mu A/P: Continue with position changes Titrate pitocin per protocol Epidural per anesthesia GBS neg Anticipate Dr Anders aware of above assessment and agrees with plan of care Assessment & Plan Assessment/Plan (1) Encounter for induction of labor: (2) Mass of left axilla: (3) Abnormal glucose affecting : (4) Syncopal episodes: QUALIFIERS: Syncope type: unspecified Qualified Code(s): R55 - Syncope and collapse (5) Sciatic leg pain: (6) Advanced maternal age (AMA) in : (7) Family history of gastroschisis: (8) Supervision of high-risk : QUALIFIERS: Trimester: third trimester Qualified Code(s): O09.93 - Supervision of high risk , unspecified, third trimester (9) : QUALIFIERS: Weeks of gestation: 38 weeks Qualified Code(s): Z3A.38 - 38 weeks gestation of (10) Unknown date of last menstrual period, antepartum: (11) ASCUS of cervix with negative high risk HPV: (12) Anxiety disorder affecting , antepartum: Multi Select Codes Urinary/Genital Urinary/Genital CPT Codes: No Charge
[2024-10-17] MEDS: Lactated Ringers 1,000 ML 200 ML IV (15:32)
--- NOTE | 2024-10-17 17:00 | PCM.PN.BLA ---
Progress Note comfortable with epidural and anesthesia in twice to give medications for BP current tracing: FHT: 115 Moderate variability reactive no decelerations category I tracing after anesthesia in. [place]: 2-3 Contractions Membranes:remains clear SVE:complete reviewed tracing abnormalities since last note: phone collaboration with Dr Hassan at this time for Cat II FHT tracing when complete. FHT to 50-70s when complete. Dr Anders, and nursery team called for kiwi assist due to FHT. A/P: Continue with position changes Titrate pitocin per protocol Epidural per anesthesia GBS neg Anticipate Dr Anders aware of above assessment and agrees with plan of care Assessment & Plan Assessment/Plan (1) Vacuum-assisted vaginal delivery: (2) Encounter for induction of labor: (3) Mass of left axilla: (4) Abnormal glucose affecting : (5) Syncopal episodes: QUALIFIERS: Syncope type: unspecified Qualified Code(s): R55 - Syncope and collapse (6) Sciatic leg pain: (7) Advanced maternal age (AMA) in : (8) Family history of gastroschisis: (9) Supervision of high-risk : QUALIFIERS: Trimester: third trimester Qualified Code(s): O09.93 - Supervision of high risk , unspecified, third trimester (10) : QUALIFIERS: Weeks of gestation: 38 weeks Qualified Code(s): Z3A.38 - 38 weeks gestation of (11) Unknown date of last menstrual period, antepartum: (12) ASCUS of cervix with negative high risk HPV: (13) Anxiety disorder affecting , antepartum: Multi Select Codes Urinary/Genital Urinary/Genital CPT Codes: No Charge
--- NOTE | 2024-10-17 17:09 | EX.PCM.OBVAG ---
Assessment & Plan (1) Encounter for induction of labor: (2) Mass of left axilla: COMMENT: No DVT on 2nd imaging. 3rd imaging in 10 days. Lovenox DC'd (3) bradycardia: (4) Abnormal glucose affecting : COMMENT: nl 3 HR GTT (5) Syncopal episodes: QUALIFIERS: Syncope type: unspecified Qualified Code(s): R55 - Syncope and collapse (6) Sciatic leg pain: COMMENT: Chiropractic referral,yoga stretches (7) Advanced maternal age (AMA) in : COMMENT: growth US @ 36wks (8) Family history of gastroschisis: (9) Supervision of high-risk : QUALIFIERS: Trimester: third trimester Qualified Code(s): O09.93 - Supervision of high risk , unspecified, third trimester COMMENT: PRR, , BELLA 10/24/24, PC Maria L Hyde, Lisa Rj (10) : QUALIFIERS: Weeks of gestation: 38 weeks Qualified Code(s): Z3A.38 - 38 weeks gestation of COMMENT: Neg GBS. declined NIPT & Carrier testing; nl anatomy (11) Unknown date of last menstrual period, antepartum: (12) ASCUS of cervix with negative high risk HPV: COMMENT: neg/neg 2021 (13) Anxiety disorder affecting , antepartum: COMMENT: Zoloft 50mg, encouraged counseling' stable Maternal Data Information BELLA Calculator Estimated Delivery Date Method Current WG Current Estimate 10/24/24 Ultrasound #1 39w 0d Other Estimates 11/05/24 Conception 37w 2d Final BELLA: 10/24/24 Gestational age: 39 Doctor Who Attended Delivery: Paty Mehta Vaginal Delivery Maternal Presentation Maternal Presentation: Medically Indicated Induction Type of Induction: Pitocin and Amniotomy Medical Reason for Induction: Other (advanced maternal age ) Vaginal Delivery Information Procedure Performed: Vacuum Assisted Vaginal Delivery Station at time of placement: +2 Number of vacuum pulls: 4 Number of vacuum pop offs: 3 Surgeon/Practitioner: Danielle Hassan Date of Procedure: 10/17/24 Pre-Procedure Diagnosis: 39 weeks ,AMA Post-Procedure Diagnosis: 39 weeks AMA, terminal bradycardia Type of anesthesia: Epidural Estimated Blood Loss: 100cc Time of Delivery: 16:51 Findings Description of procedure: Patient began pushing and delivered the head in the BIANCA presentation after 4 pulls with the vacuum and 3 pop offs. The reason for the vacuum was 7 minute deceleration in the 80's. The head was delivered atraumatically. The anterior and posterior shoulders delivered without complication followed by the rest of the infant and the was placed on the maternal abdomen. Delayed cord clamping was employed for approximately 60 seconds. Cord was clamped and cut and gentle traction was applied to the cord and the placenta delivered spontaneously immediately following it was noted to be intact with three-vessel cord. The perineum and vagina were inspected and noted to have no laceration. EBL was 100 cc. Patient and infant tolerated delivery well. 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
--- NOTE | 2024-10-17 17:14 | DCINST_ITS ---
Discharge Instructions Diet Discharge Diet: No restrictions DC O2, CPAP, BIPAP needs Home O2 Discharge instructions: No Dressing / Incision Discharge Activity: Return to Normal Activity, May Not Drive (while taking narcotic pain medications.) and May Shower May resume sexual activity in: 4-6 weeks Dressing / Incision Call your doctor if your incision/area has: Continuous Slow Oozing, Sudden Increased Bleeding, Increased Pain/ Swelling, Increased Redness and Foul Smelling Discharge Follow Up Care Please Follow Up With: Danielle Hassna DO When: Call [phone] to make an appointment with your doctor in 6 weeks. If you had elevated blood pressure or 4th degree laceration, you will need to be seen in 2 weeks. Test Results: Test results from this visit will be discussed in further detail at your follow- up appointment, if applicable. Discharge Plan Admission Admit Date/Time: 10/17/24 07:09 Attending Provider: Danielle Hassan Primary Care Provider: Devin Carlson Discharge Orders/Prescriptions Prescriptions: No Action sertraline 50 mg tablet 50 mg PO DAILY PNV-DHA 27 mg iron-1 mg -300 mg capsule 1 cap PO DAILY Referrals / Follow Up: Devin Carlson MD [Primary Care Provider] -
[2024-10-17] MEDS: Oxytocin 15 Units/NS 250ml 15 UNITS/250 ML IV.SOLN 83 UNITS IV (17:30)
[2024-10-18] VITALS (8 sets, daily range): BP systolic 104–114; BP diastolic 56–73; PULSE 63–81; RESP 15–16; TEMP 36.4–37.1; O2SAT 96–99
--- NOTE | 2024-10-18 08:14 | PCM.PN.OB ---
Subjective Subjective Patient doing well without complaints. Tolerating PO. Ambulating and voiding without difficulty. Feeding well. Denies chest pain, shortness of breath, calf pain/swelling, fevers, chills, lightheadedness. Objective Data Objective Data Vital Signs: Vital Signs Temp Pulse Resp BP Pulse Ox O2 Del Method 97.9 F 63 16 114/56 L 99 Room Air 10/18/24 06:04 10/18/24 06:04 10/18/24 06:04 10/18/24 06:04 10/17/24 17:00 10/18/24 06:04 Oxygen Delivery Method Room Air Weight: 176 lb 5.917 oz Body Mass Index (BMI) 27.6 Intake & Output: Intake and Output for Last 24 Hours 10/16/24 10/17/24 10/18/24 23:59 23:59 23:59 Intake Total 4429.17 / 4429.17 Output Total 1000 / 1000 800 / 800 Balance 3429.17 / 3429.17 -800 / -800 Lab / Micro Data 10/17/24 07:35 Labs: Laboratory Results - last 24 hr 10/17/24 07:35: Syphilis Total Ab Nonreactive, Blood Type O POSITIVE, Antibody Screen NEGATIVE ROS Constitutional Constitutional: Denies chills, fatigue, fever(s), poor appetite or weakness Eyes Eyes: Denies blurry vision, change in vision, seeing flashes or spots in vision ENT HEENT: Denies dizziness, headache(s), loss taste/smell or sore throat Cardiovascular Cardiovascular: Denies chest pain, dizziness, dyspnea, irregular heart rhythm, palpitations or rapid heart rate Respiratory/Chest Respiratory/Chest: Denies chest tightness, cough, dyspnea or breast pain Gastrointestinal Gastrointestinal: Denies abdominal pain, constipation or vomiting Genitourinary Genitourinary: Denies dysuria or flank pain Musculoskeletal Musculoskeletal: Denies difficulty walking, joint pain, limited range of motion or numbness Neurologic Neurologic: Denies abnormal movements, abnormal speech, dizziness, numbness, seizure-like activity or syncope Psychiatric Psychiatric: Denies anxiety, behavioral changes, change in appetite, confusion, depression or suicidal thoughts Physical Exam Const alert, oriented x3 and no apparent distress General Appearance: cooperative and comfortable Resp normal respiratory effort Cardio regular rate GI normal to inspection, nondistended, normoactive bowel sounds GI Narrative: uterus is firm below umbilicus Palpation: soft Back/Spine no CVA tenderness and thoraco-lumbar ROM normal Extremity normal to inspection, no clubbing, cyanosis or edema, no calf tenderness and no pedal edema Psych mental status grossly normal, thought process normal, cooperative, affect normal, speech normal, activity/motor behavior normal, denies homicidal ideation and denies suicidal ideation Assessment & Plan (1) bradycardia: (2) Vacuum-assisted vaginal delivery: COMMENT: JV/KW 39.0 (3) Encounter for induction of labor: PLAN: Plan s/p PPD # 1 1. routine post delivery care 2. breast feeding- support given 3. rh positive 4. rubella immune 5. ok to dc to home if ok with peds later tonight
[2024-10-18] MEDS: Senna/Docusate Sodium 1 Tablet PO (10:45)
--- NOTE | 2024-10-18 13:13 | CASEMGMT ---
Social Work Assessment Labor and Delivery Unit Patient Address:? [address], [facility] [address] Phone number: [phone] Date of Referral: ?10/17/2024 Time of Referral:? 8:26am Referred By: Stevie Date of Intervention: ??10/18/2024 Time of Intervention:? 11:00am Reason for Referral:? anxiety, father is an alcoholic History obtained from: medical records, MOB Household composition: ?Patient lives with and 3 other children, all girls ages 6 (Mary Ellen) ,4 (Maria L), and 2 ( Lisa).? Patient's parent/guardian status:? ?MOB and FOB have been since 2016.? MOB denies any domestic or inter-partner violence,? All three children are biologically MOB and FOB.? No other children to either parent.? .? Medical History: ???SYED is a 34 year old female who is G 4, P 3 now, 4 following labor and delivery of .? SYED received routine care through [facility].? SYED presented to hospital for induction of labor. SYED delivered baby on 10/17/2024 at 39 weeks gestation.? Baby boy, Junior Kahn, was born weighing 8 pounds, 6 ounces with apgars of 9 and 9 at one and five minutes of life. SYED is and states that is it going well.? Baby will be followed for pediatrics.? 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 SYED works for [employer] in the [employer] department.? SYED states that she is taking 12 weeks off for maternity leave.? SYED states she has child care centre manager for her other three children already and has continued to pay for 3 days a week for them to go during her leave.? Supplies: ?SYED has obtained all necessary supplies , including car seat, safe sleep space, clothes diapers, and wipes.? Childcare/Caregiver(s):? MOB reports to having child care centre manager outside of the home.? MOB will be primary child care aide while home with infant on leave.?? Transportation:?? MOB and HERNANDEZ both reports to having reliable transportation for each of them.? Programs/Agencies Involved: ?MOB deny being involved with any outside agencies Children Services/Legal Issues:??? MOB deny any involvement Behavioral Health Issues: ??Mental Health History:? MOB reports to having anxiety and has been prescribed sertraline for many years.? MOB reports to continuing this medication through out and denies any increase in anxiety or any depressive issues for duration of .? SYED states that she had seen a counselor years ago but is currently getting her prescription filled through her PCP.? SYED denies need for counseling services, stating she is not interested in one on one counseling but may be attending family counseling with her siblings due to her fathers alcoholism.? SW educated MOB on talking to supports and obtaining mental health services should her anxiety increase during period.. ??FOB denies any mental health diagnosis or concerns.? ?Substance Use History:? FOB and MOB deny any substance abuse history . Family History:? MOB father has an alcohol addiction.? FOB denies any history.? Opportunity taken to educate on healthy and safe coping skills. ?Drug Screens: ?none indicated Family/Social Stressors:? MOB denies any current stressors other than parenthood Support Systems: ?MOB reports her siblings as support.? Depression/Shaken Baby/Safe Sleeping: ?SW educated MOB on signs and symptoms of baby blues and mood and anxiety disorders to be mindful of during period.? SW provided literature for MOB to review regarding these topics.? MOB was receptive to information. ? ASSESSMENT:? MOB and FOB were sleeping when SW entered room.? MOB told SW that baby had been taken to be circumcised.? Both MOB and FOB were receptive to visit and open to conversation and resources provided.? Both were looking forward to discharge and being home with all their children.? PLAN:?? No other services requested or indicated. MOB and baby to be discharged when medically ready. Parents were provided literature regarding: signs and symptoms of baby blues and mood and anxiety disorders, Help Me Grow, shaken baby prevention, ABCs of safe sleep and a list of county resources that are available for them should any needs present themselves. Jessica Ayala, PACKING CHECKER, COOK'S ASSISTANT
--- NOTE | 2024-10-22 15:20 | NURSING ---
f/up call attempted, no ans, LVM
== END 2024-10-18 17:45 | disposition home or self-care (01) | DRG 807 ==
PROVIDERS: Advanced Practice Midwife; Admitting Provider Obstetrics & Gynecology; PCP Family Medicine; Visit Provider Obstetrics & Gynecology
DX: O76 Abnormality in fetal heart rate and rhythm complicating labor and delivery (principal); Z37.0 Single live birth; O99.344 Other mental disorders complicating childbirth; F41.9 Anxiety disorder, unspecified; Z3A.39 39 weeks gestation of pregnancy; N96 Recurrent pregnancy loss; O99.893 Other specified diseases and conditions complicating puerperium; Z82.79 Family history of other congenital malformations, deformations and chromosomal abnormalities; R87.610 Atypical squamous cells of undetermined significance on cytologic smear of cervix (ASC-US); O99.892 Other specified diseases and conditions complicating childbirth; R22.32 Localized swelling, mass and lump, left upper limb; O99.814 Abnormal glucose complicating childbirth
CPT/HCPCS: 85025; 86780; 86850; 86900; 86901; 99221; G0378; J2405